=== PATIENT | female | born 1950 ===

== ENCOUNTER 2016-11-12 06:54 | Inpatient (IN) | payer MEDICARE ==
[2016-11-12] MEDS ORDERED: Ropivacaine 0.5% 30ML IV ONE (07:19)
[2016-11-12] MEDS ORDERED: Bupivacaine 0.5% Inj(30mL) ONE (07:20)
[2016-11-12] MEDS ORDERED: Propofol 10 mg/ml Inj (20 ML) ONE (07:23)
[2016-11-12] MEDS ORDERED: Midazolam 2 MG/2 ML VIAL ONE (07:23)
[2016-11-12] MEDS ORDERED: Rocuronium 10 mg/ml (5 ml) ONE (07:23)
[2016-11-12] MEDS ORDERED: Thrombin Topical 5,000 IU Spray Kit ONE (07:24)
[2016-11-12] MEDS ORDERED: Bacitracin Ointment 30 GM TUBE ONE (07:24)
[2016-11-12] MEDS ORDERED: Absorbable Gelatin Sponge Size 100 ONE (07:24)
[2016-11-12 07:34] VITALS: BMI 34.9
--- NOTE | 2016-11-12 07:55 | CP.PCM.HP ---
History of Present Illness - History of Present Illness History of Present Illness: 66 y/o female with PMH HTN, OA, dyslipidemia presented via [facility] for scheduled right total knee replacement surgery by Dr. Tom. As per patient she has been experiencing right knee pain for approximately 18 years , progressive, failing conservative treatment with pain management and intra articular injections. Patient was seen by Dr Tom in his office and scheduled for TKR. She has medical clearance by her PMD for surgery. At present she denies any chest pain, SOB, palpitations, PND, orthopnea, urinary symptoms or changes in bowel movements. Allergies ; NKDA PMH ; OA, HTN, dyslipidemia Medications; Tramadol, Benicar, lipitor, ASA( last dose was 8 days ago ), atenolol Surgery ; Right shoulder surgery Family history ; None Social history ; lives with son in [place] [facility] [place], has 2 children, retired, , smokes 2 cigg/day for > 20 years , denies ETOH or drug abuse ROS; 14 point review of system negative except above Present on Admission - Present on Admission Any Indicators Present on Admission: No Review of Systems - Review of Systems All systems: reviewed and no additional remarkable complaints except Past Patient History - Infectious Disease Hx of Infectious Diseases: None - Tetanus Immunizations Tetanus Immunization: Unknown - Past Medical History & Family History Past Medical History?: Yes Past Family History: Reviewed and not pertinent - Past Social History Smoking Status: Light Smoker < 10 Cigarettes Daily (2 cigg /day) Chewing Tobacco Use: No Cigar Use: No Drugs: Denies Home Situation {Lives}: With Family (son) Domestic Violence: Negative - CARDIAC Hx Cardiac Disorders: No Hx Congestive Heart Failure: No Hx Hypercholesterolemia: Yes Hx Hypertension: Yes - PULMONARY Hx Chronic Obstructive Pulmonary Disease (COPD): No - NEUROLOGICAL HX Cerebrovascular Accident: No - HEENT Hx HEENT Problems: No - RENAL Hx Renal Failure: No - ENDOCRINE/METABOLIC Hx Diabetes Mellitus Type 1: No Hx Diabetes Mellitus Type 2: No Hx Hypothyroidism: No - HEMATOLOGICAL/ONCOLOGICAL Hx Blood Disorders: No - INTEGUMENTARY Hx Dermatological Problems: No - MUSCULOSKELETAL/RHEUMATOLOGICAL Hx Arthritis: Yes Hx Rheumatoid Arthritis: No - GASTROINTESTINAL Hx Gastrointestinal Disorders: No - GENITOURINARY/GYNECOLOGICAL Hx Genitourinary Disorders: No - PSYCHIATRIC Hx Psychophysiologic Disorder: No - SURGICAL HISTORY Hx Surgeries: Yes Hx Orthopedic Surgery: Yes (right shoulder ) - ANESTHESIA Hx Anesthesia: Yes Hx Anesthesia Reactions: No Hx Malignant Hyperthermia: No Meds Allergies/Adverse Reactions: Allergies Allergy/AdvReac Type Severity Reaction Status Date / Time No Known Allergies Allergy Verified 10/29/14 11:08 Physical Exam - Constitutional Appears: Well, Non-toxic, No Acute Distress - Head Exam Head Exam: ATRAUMATIC, NORMAL INSPECTION, NORMOCEPHALIC - Eye Exam Eye Exam: EOMI, Normal appearance, PERRL Pupil Exam: NORMAL ACCOMODATION - ENT Exam ENT Exam: Mucous Membranes Moist, Normal Exam - Neck Exam Neck exam: Positive for: Full Rom, Normal Inspection - Respiratory Exam Respiratory Exam: Clear to Auscultation Bilateral, NORMAL BREATHING PATTERN. absent: Rales, Rhonchi, Wheezes - Cardiovascular Exam Cardiovascular Exam: REGULAR RHYTHM, RRR, +S1, +S2. absent: JVD - GI/Abdominal Exam GI & Abdominal Exam: Normal Bowel Sounds, Soft. absent: Distended, Guarding, Rebound, Tenderness - Rectal Exam Rectal Exam: Deferred - Extremities Exam Extremities exam: Positive for: normal capillary refill, normal inspection, pedal pulses present. Negative for: calf tenderness, pedal edema - Back Exam Back exam: NORMAL INSPECTION - Neurological Exam Neurological exam: Alert, CN II-XII Intact, Oriented x3, Reflexes Normal - Psychiatric Exam Psychiatric exam: Normal Affect, Normal Mood - Skin Skin Exam: Dry, Intact, Normal Color, Warm Results - Vital Signs Recent Vital Signs: Last Vital Signs Temp 97.6 F 11/12/16 07:33 Pulse 74 11/12/16 07:33 Resp 20 11/12/16 07:33 BP 157/74 H 11/12/16 07:33 Pulse Ox 97 11/12/16 07:33 - Labs Labs: Laboratory Results - last 24 hr 11/12/16 07:30 POC Glucose (mg/dL) 111 H Assessment & Plan (1) Osteoarthritis of right knee Status: Acute Priority: High Comment: Admit via SDS for right Total Knee replacement by Dr Tom. Medical Clearance in the chart. NPO for now. Post op follow up for pain management , PT (2) Hyperlipidemia Status: Chronic Comment: Resume home meds (3) HTN (hypertension) Status: Chronic Priority: Medium Comment: Resume home meds (4) DVT prophylaxis Status: Acute Comment: Will start post op as per ortho recomendations
[2016-11-12] MEDS ORDERED: Lactated Ringer's 1,000 ML IV ONE ×2 (08:09)
[2016-11-12] MEDS ORDERED: ePHEDrine 50 mg/ml Inj ONE (08:15)
[2016-11-12] MEDS ORDERED: Labetalol 5mg/ml (4ml) ONE (08:58)
[2016-11-12] MEDS ORDERED: ceFAZolin 2 GM in Sodium Chloride 0.9% 100 ML IVPB SCH (09:00)
[2016-11-12] MEDS ORDERED: Neostigmine Methylsulfate 3mg/3ml Syringe IV ONE (10:20)
--- NOTE | 2016-11-12 11:03 | PCM.SURG1 ---
Surgeon's Initial Post Op Note - Surgeon's Notes Surgeon: Negro Damage Appraiser: MELISSA Santoro/ 2nd assist Ronan Whitfield Type of Anesthesia: General Endo, Spinal Anesthesia Administered By: Dr Alanis Pre-Operative Diagnosis: Primary Osteoartyhritis Right knee. tricompartmental synovits Operative Findings: as above. posterior capsular contracture. lateral patella contracture Post-Operative Diagnosis: as above Operation Performed: R TKR. posterior capsular release. lateral patella retinacular release. anteriuor and posterior synovectomy. computer navigation Specimen/Specimens Removed: synovium. bone. cartilage Estimated Blood Loss: EBL {In ML}: 50 Blood Products Given: N/A Drains Used: No Drains Post-Op Condition: Good Date of Surgery/Procedure: 11/12/16 Time of Surgery/Procedure: 08:55 (time in room/anaesthesia induction time/time in room 8:09/finish time10:46)
[2016-11-12] MEDS ORDERED: HYDROmorphone 0.5 mg/0.5 ml ISec IVP PRN (11:12)
--- NOTE | 2016-11-12 11:12 | PCM.ANESB3 ---
Femoral Nerve Block - Femoral Nerve Block Date of Procedure: 11/12/16 Anesthesiologist: Haile Pre-Procedure Diagnosis: Right knee osteoarthritis Post-Procedure Diagnosis: Same Procedure Performed: Femoral Nerve Block Right - Procedure Femoral Nerve Block: The procedure was explained to the patient that it is for the post-operative pain management. Consent was obtained after a thorough discussion with the patient regarding the benefits and possible complications of local anesthetic block of the femoral nerve at the inguinal crease area. The patient was brought to the operating room and standard monitors were applied. Time-out was held with the circulating nurse to confirm the correct surgery and the appropriate block. After surgery was completed, patient was placed in supine position with fully extended lower extremities and the ____right____ groin exposed. The femoral artery was then carefully palpated. The ultrasound transducer was then applied to this area in the transverse plane and the femoral nerve was visualized lateral to the femoral artery and underneath the fascia iliaca. After thorough identification, the inguinal crease area was prepped with Betadine solution three times and 1 % Lidocaine was injected subcutaneously for topical anesthesia. At this point, a #22 gauge Stimuplex 2-inch needle was inserted immediately lateral to the femoral artery pulse at the inguinal crease and advanced perpendicularly. The needle was inserted to the ultrasound transducer in-plane towards the femoral nerve in a [id number] direction. Needle advancement was performed carefully under direct ultrasound visualization. Nerve stimulator was used and twitch of the quadriceps muscle was obtained at current of __0.4___ MA. After negative aspiration, __20___cc of __.5___% ____Ropivacaine ____was injected. Under ultrasound guidance the local anesthetics were observed spreading below fascia iliaca and around the femoral nerve. The needle was removed intact and sterile dressing was applied. The patient had stable vital signs, was conscious and in no apparent distress. The patient tolerated the femoral nerve block well with stable vital signs and was transferred to PACU.
--- NOTE | 2016-11-12 12:16 | RAD ---
Indication: Status post right TKR Comparison: None available Two views, right knee radiographs Findings: The patient is status post right knee total arthroplasty. Alignment appears satisfactory. Soft tissue swelling, subcutaneous emphysema, and surgical mj compatible with recent postoperative history Impression: Status post right arthroplasty as above.
[2016-11-12] MEDS: Pantoprazole 40 mg EC Tab PO SCH (17:16)
[2016-11-12] MEDS: Omega-3-Acid Ethyl Esters 1 GM Cap PO SCH (17:25)
[2016-11-12] MEDS: ceFAZolin 1 GM in Sodium Chloride 0.9% 100 ML IVPB SCH (18:11)
[2016-11-13] MEDS: ceFAZolin 1 GM in Sodium Chloride 0.9% 100 ML IVPB SCH (00:34)
[2016-11-13 07:28] LABS: BASO # 0.1 K/uL (0.0-0.2); BASO % 0.8 % (0.0-2.0); EOS # 0.1 K/uL (0.0-0.7); HEMATOCRIT 33.7 % (34.0-47.0); LYMPH # 2.3 K/uL (1.0-4.3); LYMPH % 21.7 % (20.0-40.0); MEAN CELL VOLUME 98.9 fl (81.0-99.0); MEAN CORPUSCULAR HEMOGLOBIN 33.3 pg (27.0-31.0); MEAN CORPUSCULAR HGB CONC 33.6 g/dL (33.0-37.0); MEAN PLATELET VOLUME 8.5 fl (7.2-11.7); MONO # 1.3 K/uL (0.0-0.8); MONO % 11.9 % (0.0-10.0); NEUT # 6.9 K/uL (1.8-7.0); NEUT % 64.6 % (50.0-75.0); RED CELL DISTRIBUTION WIDTH 14.9 % (11.5-14.5); WHITE BLOOD COUNT 10.6 K/uL (4.8-10.8)
[2016-11-13 07:30] LABS: BLOOD UREA NITROGEN 8 mg/dl (7-17); CALCIUM 8.9 mg/dL (8.4-10.2); CARBON DIOXIDE 30 mmol/L (22-30); CHLORIDE 105 mmol/L (98-107); GFR AFRICAN-AMERICAN > 60; GLUCOSE,RANDOM 109 mg/dL (65-105); POTASSIUM 3.8 MMOL/L (3.6-5.0); SODIUM 145 mmol/l (132-148)
[2016-11-13 07:46] VITALS: RESP 20
[2016-11-13] MEDS: Omega-3-Acid Ethyl Esters 1 GM Cap PO SCH ×2 (08:08→16:57)
[2016-11-13] MEDS: Enoxaparin 40 mg Syringe SC SCH (08:08)
[2016-11-13] MEDS: Pantoprazole 40 mg EC Tab PO SCH (08:08)
[2016-11-13] MEDS: Oxycodone/Acetaminophen 5/325 mg Tab PO PRN (14:21)
--- NOTE | 2016-11-13 14:30 | CP.PCM.PN ---
Subjective - Date & Time of Evaluation Date of Evaluation: 11/13/16 Time of Evaluation: 10:30 - Subjective Subjective: Patient seen and examined bedside. Denies any pain to right knee.Hemodynamically stable, Tmax 100.3. No acute issues overnight. participating [facility] PT. Objective - Vital Signs/Intake and Output Vital Signs (last 24 hours): Temp Pulse Resp BP Pulse Ox 99.3 F 102 H 20 135/82 95 11/13/16 13:51 11/13/16 13:51 11/13/16 13:51 11/13/16 13:51 11/13/16 13:51 - Medications Medications: Current Medications Acetaminophen (Tylenol 325mg Tab) 650 mg PO Q6 PRN PRN Reason: Fever >100.4 F Atenolol (Tenormin) 50 mg PO DAILY [facility] Last Admin: 11/13/16 08:07 Dose: 50 mg Atorvastatin Calcium (Lipitor) 80 mg PO DAILY [facility] Last Admin: 11/13/16 08:08 Dose: 80 mg Docusate Sodium (Colace) 100 mg PO BID [facility] Last Admin: 11/13/16 08:07 Dose: 100 mg Enoxaparin Sodium (Lovenox) 40 mg SC DAILY [facility] PRN Reason: Protocol Last Admin: 11/13/16 08:08 Dose: 40 mg Losartan Potassium (Cozaar) 50 mg PO DAILY [facility] Last Admin: 11/13/16 08:08 Dose: 50 mg Morphine Sulfate (Morphine) 2 mg IVP Q4 PRN PRN Reason: Pain, severe (8-10) Last Admin: 11/13/16 11:15 Dose: 2 mg [id number] Ethyl Esters (Lovaza) 2 gm PO BID [facility] Last Admin: 11/13/16 08:08 Dose: 2 gm Ondansetron HCl (Zofran Inj) 4 mg IVP Q6 PRN PRN Reason: Nausea/Vomiting Oxycodone/Acetaminophen (Percocet 5/325 Mg Tab) 2 tab PO Q4 PRN PRN Reason: Pain, moderate (4-7) Stop: 11/16/16 09:33 Last Admin: 11/13/16 14:21 Dose: 2 tab Pantoprazole Sodium (Protonix Ec Tab) 40 mg PO DAILY [facility] Last Admin: 11/13/16 08:08 Dose: 40 mg - Labs Labs: 11/13/16 05:45 04/25/17 05:45 PT 10.5 SECONDS (9.6-11.2) 11/13/16 05:45 INR 1.01 (0.92-1.08) 11/13/16 05:45 APTT 26.0 SECONDS (23.3-32.5) 11/13/16 05:45 - Constitutional Appears: Non-toxic, No Acute Distress, Other (obese) - Head Exam Head Exam: ATRAUMATIC, NORMAL INSPECTION, NORMOCEPHALIC - Eye Exam Eye Exam: EOMI, Normal appearance, PERRL Pupil Exam: NORMAL ACCOMODATION - ENT Exam ENT Exam: Mucous Membranes Moist, Normal Exam - Neck Exam Neck Exam: Full ROM, Normal Inspection - Respiratory Exam Respiratory Exam: Clear to Ausculation Bilateral, NORMAL BREATHING PATTERN. absent: Rhonchi, Wheezes, Respiratory Distress - Cardiovascular Exam Cardiovascular Exam: REGULAR RHYTHM, RRR, +S1, +S2. absent: JVD - GI/Abdominal Exam GI & Abdominal Exam: Soft, Normal Bowel Sounds. absent: Guarding, Tenderness, Rebound - Rectal Exam Rectal Exam: Deferred - Extremities Exam Extremities Exam: absent: Calf Tenderness Additional comments: right knee konstantin bandage in place - Back Exam Back Exam: NORMAL INSPECTION - Neurological Exam Neurological Exam: Alert, Awake, CN II-XII Intact, Oriented x3 - Psychiatric Exam Psychiatric exam: Normal Affect - Skin Skin Exam: Dry, Warm Additional comments: right buttock dry clustered hyperkeratotic lesions puncture size ,covered with dry brown scabs, no drainage, no odor. Assessment and Plan (1) HTN (hypertension) Status: Chronic (2) Hyperlipidemia Status: Chronic (3) DVT prophylaxis Status: Acute (4) Osteoarthritis of right knee Status: Acute - Assessment and Plan (Free Text) Assessment: 66 y/o female with PMH HTN, OA, dyslipidemia presented via [facility] for scheduled right total knee replacement surgery by Dr. Tom. As per patient she has been experiencing right knee pain for approximately 18 years , progressive, failing conservative treatment with pain management and intra articular injections. Patient was seen by Dr Tom in his office and scheduled for TKR. Today s/o right TKR day 1 and doing well (1) Osteoarthritis of right knee s/p Right TKR #1 hemodynamically stable d/c SCREEN CLEANER pump and start Morphine and percoset PRN as per pain managemnet PT consult appreciated Continue DVT prophtylaxis with SCD and Lovenox Receivecd Ancef 3 doses prophylactically] Will d/c to [facility] in AM if stable (2) Hyperlipidemia Chronic continue lipitor (3) HTN (hypertension) chronic, stable resumed home meds (4) DVT prophylaxis SCD and lovenox
[2016-11-14] MEDS: Oxycodone/Acetaminophen 5/325 mg Tab PO PRN ×2 (03:19→12:10)
[2016-11-14 06:49] LABS: HEMATOCRIT 30.7 % (34.0-47.0); MEAN CORPUSCULAR HEMOGLOBIN 32.5 pg (27.0-31.0); MEAN CORPUSCULAR HGB CONC 32.5 g/dL (33.0-37.0); RED CELL DISTRIBUTION WIDTH 14.8 % (11.5-14.5); WHITE BLOOD COUNT 11.6 K/uL (4.8-10.8)
[2016-11-14 08:00] VITALS: O2SAT 93
--- NOTE | 2016-11-14 08:07 | OP ---
PROCEDURE DATE: 11/12/2016 PREOPERATIVE DIAGNOSIS: Severe tricompartmental osteoarthritis of the right knee. POSTOPERATIVE DIAGNOSES: 1. Severe tricompartmental osteoarthritis of the right knee. 2. Tricompartmental synovitis. PROCEDURES: 1. Right total knee replacement arthroplasty. 2. Anterior and posterior synovectomy 3. Posterior capsular release. 4. Lateral patellar retinacular release. 5. Computer navigation. SURGEON: Daniel Tom MD TELECOMMUNICATIONS LINE MECHANIC: Renetta Angulo, Certified Registered Nursing Commercial Accountant. SECOND FRICTION PAINT MACHINE TENDER: Ronan Whitfield. ANESTHESIA: Spinal and general anesthesia; Dr. Rizwan Be. COMPLICATIONS: No complications. DRAINS: No drains. BLOOD LOSS: Approximately 55 mL. OPERATIVE INDICATION: The patient is a woman who presents with severe pain and restricted range of m otion of the knee. The patient has failed conservative management consisting of anti-inflammatory me dication by her family doctor, activity modification and intraarticular injection. Pros, cons, risks and benefits of total knee replacement arthroplasty are discussed through the culturally competent t ranslator. Possibility of mechanical failure, infection, thromboembolic disease, secondary or tertia ry surgery is discussed. The patient can no longer stand the discomfort and wishes the surgery to be accomplished. This is accomplished again in the presence of the culturally competent rn spine. P ossibility of mechanical failure, infection, thromboembolic disease, secondary or tertiary surgery is discussed. OPERATIVE PROCEDURE: After having obtained informed consent, after having identified side, site and procedure and a critical pause/timeout, after the satisfactory induction of the anesthetic, the patie nt correctly identified, in the supine position with all bony prominences well padded, the right lowe r extremity is prepped and free draped in the usual fashion for lower extremity surgery. The tourniq uet had been applied, but is not yet inflated. After exsanguinating the limb using a 6-inch Esmarch bandage, the tourniquet which had been applied is inflated to 350 mmHg. Straight midline approach wa s made to the knee. The skin incision is carried down through the skin and subcutaneous tissue. Med ial arthrotomy is accomplished. Dissection is carried around to the direct head of the semimembranos is tendon. A portion of the patellar ligament is elevated. Medial and lateral meniscectomies are ac complished. Anterior and posterior cruciate ligaments are excised. The initial osteotomy of the art hroplasty is accomplished on the tibial side. The tibia is dislocated anteriorly. The accelerometer is placed and affixed to the anterior aspect of the tibia. Sensor is placed. Offset is calibrated. Medial malleolus was identified and lateral malleolus is identified. The tibial cut is neutral varu s valgus and neutral posterior slope because of the 5 degrees built into the polyethylene posteriorly . This having been accomplished, there was found to be a severe defect medially because of the varus nature. The cut is set at 1 mm below the deformity. Tibial osteotomy is accomplished. At this poi nt in time, a portion of the iliotibial band and the lateral aspect of the tibia is released. Latera l patellar retinacular release is accomplished. Anterior and posterior synovectomy is accomplished. Attention is turned to the femur. The distal cut is set to 0 degrees varus valgus on the mechanical axis and 0.5 degrees of flexion. This having been accomplished, the hip center is found. The dista l cut is set to 9 mm to match the femoral component and the femoral osteotomy is accomplished, again after registration by the accelerometer of the distal cut. Anterior and posterior sizing is to #3 fe moral component with a #2 tibial tray. The tibia had been sized and prepared according to rotation a fter the proximal tibia had been prepared. This having been accomplished, the wound is thoroughly ir rigated. Attention is turned to the femur. Anterior and posterior osteotomies were accomplished. C hamfer cuts were accomplished as well. Posterior capsular is released, lateral patella retinaculum i s release. There is found to be evidence of a posterior capsular contracture. The posterior capsule is carefully released, a lateral patellar retinacular release is accomplished, and anterior and post erior synovectomy is accomplished. The wound is thoroughly irrigated. At this point in time, triali ng is accomplished using the #3 cemented femoral component, #2 cemented tibial tray, and 15 mm polyet hylene. The flexion/extension balance is found to be excellent. Attention is turned to the patella. The patella girth measures 28 mm. The freehand patella osteotomy is accomplished for a [address] cut. Patella balance is found to be excellent in flexion and extension. The wound was thoroughly irrigated. Components are removed. The femur, tibia, and patella are prepared using the waterpik. The #3 cemented femoral component is applied, the #2 cemented tibial tray, 35 mm polyethylene. Ante rior and posterior synovectomy having been accomplished, the posterior capsule release having been ac complished, lateral patellar retinacular release having been accomplished, the patella ligament is re paired and reinforced using a [place] internal fixation suture. Closure is in layers with #2 Quill, i nterrupted #1 Vicryl, followed by 0 Quill, Vicryl and mj to skin. No drain is employed. Daniel Campos compression dressing and knee immobilizer are applied. OPERATIVE PROCEDURES: 1. Right total knee replacement. 2. Repair and reinforcement, patella ligament. 3. Anterior and posterior synovectomy. 4. Posterior capsule release, right knee. 5. Lateral patellar retinacular release. POSTOPERATIVE DIAGNOSES: 1. Tricompartmental osteoarthritis. 2. Tricompartmental synovitis. 3. Compromised patella ligament insertion into the tibia. 4. Posterior capsular contracture. 5. Lateral patellar retinacular contracture. The certified nursing first coat operator is essential to the management of this operation and her presen ce is important for exposure, the bone cuts, and implantation and cementation of the components. Daniel Tom MD cc: [id number] TT: 11/13/2016 11:40:17 ne
[2016-11-14] MEDS: Omega-3-Acid Ethyl Esters 1 GM Cap PO SCH (08:50)
[2016-11-14] MEDS: Pantoprazole 40 mg EC Tab PO SCH (08:51)
[2016-11-14] MEDS: Enoxaparin 40 mg Syringe SC SCH (08:52)
--- NOTE | 2016-11-14 12:03 | CP.PCM.DIS ---
Provider - Provider Date of Admission: 11/12/16 08:01 Attending physician: Gladis De Paz MD Consults: Ortho : Dr Tom 11/12/16 11:04 Case Management Referral Routine Comment: Physician Instructions: Reason For Exam: Reason for Referral: Discharge Planning 11/12/16 11:05 Case Management Referral Routine Comment: Respiratory therapy education, Anesthesiology Eval Physician Instructions: Home Health Care Assessment, Die Hardener Education Reason For Exam: s/p R TKR Reason for Referral: Discharge Planning 11/12/16 15:23 Wound Care [Nursing Referral for Wound Care] Routine Comment: Physician Instructions: Reason For Exam: sacral wound Time Spent in preparation of Discharge (in minutes): 25 Diagnosis - Discharge Diagnosis (1) Osteoarthritis of right knee Status: Chronic Priority: High (2) S/P TKR (total knee replacement) Status: Acute (3) HTN (hypertension) Status: Chronic Priority: Medium (4) Hyperlipidemia Status: Chronic (5) DVT prophylaxis Status: Acute Hospital Course - Lab Results Lab Results: Most Recent Lab Values WBC 11.6 K/uL (4.8-10.8) H 11/14/16 05:35 RBC 3.07 Mil/uL (3.80-5.20) L 11/14/16 05:35 Hgb 10.0 g/dL (12.0-16.0) L 11/14/16 05:35 Hct 30.7 % (34.0-47.0) L 11/14/16 05:35 MCV 100.0 fl (81.0-99.0) H 11/14/16 05:35 MCH 32.5 pg (27.0-31.0) H 11/14/16 05:35 MCHC 32.5 g/dL (33.0-37.0) L 11/14/16 05:35 RDW 14.8 % (11.5-14.5) H 11/14/16 05:35 Plt Count 342 K/uL (130-400) 11/14/16 05:35 MPV 8.5 fl (7.2-11.7) 11/13/16 05:45 Neut % (Auto) 64.6 % (50.0-75.0) 11/13/16 05:45 Lymph % (Auto) 21.7 % (20.0-40.0) 11/13/16 05:45 [place] % (Auto) 11.9 % (0.0-10.0) H 11/13/16 05:45 Eos % (Auto) 1.0 % (0.0-4.0) 11/13/16 05:45 Baso % (Auto) 0.8 % (0.0-2.0) 11/13/16 05:45 Neut # 6.9 K/uL (1.8-7.0) 11/13/16 05:45 Lymph # 2.3 K/uL (1.0-4.3) 11/13/16 05:45 [place] # 1.3 K/uL (0.0-0.8) H 11/13/16 05:45 Eos # 0.1 K/uL (0.0-0.7) 11/13/16 05:45 Baso # 0.1 K/uL (0.0-0.2) 11/13/16 05:45 PT 10.5 SECONDS (9.6-11.2) 11/13/16 05:45 INR 1.01 (0.92-1.08) 11/13/16 05:45 APTT 26.0 SECONDS (23.3-32.5) 11/13/16 05:45 Sodium 145 mmol/l (132-148) 11/13/16 05:45 Potassium 3.8 MMOL/L (3.6-5.0) 11/13/16 05:45 Chloride 105 mmol/L (98-107) 11/13/16 05:45 Carbon Dioxide 30 mmol/L (22-30) 11/13/16 05:45 Anion Gap 13 (10-20) 11/13/16 05:45 BUN 8 mg/dl (7-17) 11/13/16 05:45 Creatinine 0.8 mg/dL (0.7-1.2) 11/13/16 05:45 Est GFR ( Amer) > 60 11/13/16 05:45 Est GFR (Non-Af Amer) > 60 11/13/16 05:45 POC Glucose (mg/dL) 108 mg/dL (65-110) 11/12/16 11:32 Random Glucose 109 mg/dL (65-105) H 11/13/16 05:45 Calcium 8.9 mg/dL (8.4-10.2) 11/13/16 05:45 Blood Type O POSITIVE 11/12/16 07:57 Antibody Screen Negative 11/12/16 07:57 BBK History Checked Patient has bt 11/12/16 07:57 - Hospital Course Hospital Course: 66 y/o female with PMH HTN, OA, dyslipidemia presented via [facility] for scheduled right total knee replacement surgery by Dr. Tom. As per patient she has been experiencing right knee pain for approximately 18 years , pain worsening and failed conservative treatment with pain management and intra articular injections. Patient was seen by Dr Tom in his office and scheduled for Right TKR. Underwent Right TKR, did well post op , d/c to [facility]. (1) Primary Osteoarthritis of right knee s/p Right TKR TKR done by DR Tom hemodynamically stable Pain Mgt - was on [employer] pump - d/c and changed to Percocet- pain controlled PT/OT consulted Continue DVT prophylaxis with SCD and Lovenox Received Ancef 3 doses prophylactically] Will d/c to [facility] for further Rehab (2) Hyperlipidemia Chronic continue lipitor (3) HTN (hypertension) chronic, stable resumed home meds (4) DVT prophylaxis SCD and lovenox Discharge Exam - Head Exam Head Exam: ATRAUMATIC, NORMAL INSPECTION, NORMOCEPHALIC - Eye Exam Eye Exam: EOMI, Normal appearance Pupil Exam: NORMAL ACCOMODATION - ENT Exam ENT Exam: Mucous Membranes Moist, Normal External Ear Exam - Neck Exam Neck exam: Full Rom - Respiratory Exam Respiratory Exam: NORMAL BREATHING PATTERN. absent: Respiratory Distress - Cardiovascular Exam Cardiovascular Exam: REGULAR RHYTHM, +S1, +S2 - GI/Abdominal Exam GI & Abdominal Exam: Normal Bowel Sounds, Soft. absent: Tenderness - Extremities Exam Extremities exam: normal capillary refill, pedal pulses present Additional comments: no calf tenderness right knee dressing intact , clean - Back Exam Back exam: FULL ROM. absent: CVA tenderness (L), CVA tenderness (R) - Neurological Exam Neurological exam: Alert, CN II-XII Intact, Oriented x3, Reflexes Normal - Psychiatric Exam Psychiatric exam: Normal Affect, Normal Mood - Skin Skin Exam: Dry, Normal Color Discharge Plan - Follow Up Plan Condition: GOOD Disposition: TRANSF TO SNF Instructions: Knee Replacement (DC) Additional Instructions: ff up with Dr Tom in 1 wk Use immobilizer only during sleep cont CPM Referrals: Daniel Tom III, MD [Primary Care Provider] -
[2016-11-14 12:13] VITALS: BP 136/88; PULSE 91; TEMP 99
== END 2016-11-14 15:31 | DRG 470 ==
LOC: H.OPSURG 06:54 → H.MEDSURG1 08:01
PROVIDERS: ADMIT Hospitalist; ATTEND Hospitalist
PROC: 0SNC0ZZ Release Right Knee Joint, Open Approach (ICD-10-PCS; 2016-11-12)
PROC: 8E0YXBZ Computer Assisted Procedure of Lower Extremity (ICD-10-PCS; 2016-11-12)
PROC: 3E0T3BZ Introduction of Anesthetic Agent into Peripheral Nerves and Plexi, Percutaneous Approach (ICD-10-PCS; 2016-11-12)
PROC: 0SRC0J9 Replacement of Right Knee Joint with Synthetic Substitute, Cemented, Open Approach (ICD-10-PCS; principal; 2016-11-12 07:45)
PROC: 0SBC0ZZ Excision of Right Knee Joint, Open Approach (ICD-10-PCS; 2016-11-12 07:45)
DX: M17.11 Unilateral primary osteoarthritis, right knee (principal); I10 Essential (primary) hypertension; E78.5 Hyperlipidemia, unspecified; M65.9 Synovitis and tenosynovitis, unspecified; M24.561 Contracture, right knee

== ENCOUNTER 2017-10-21 06:24 | Inpatient (IN) | payer MEDICARE ==
[2017-10-18 10:21] VITALS: BMI 31.6
--- NOTE | 2017-10-21 07:27 | CP.PCM.HP ---
History of Present Illness - History of Present Illness History of Present Illness: PMD: Dr James Orthopedic: Dr Tom Chief complaint: Painful left shoulder HPI: This is a 67 years old female with hx of HTN, HLD and Osteoarthritis who comes for an elective Left total shoulder replacement. She has been having pains at this shoulder for over 10years was treated with intra articular injections and analgesic tablets. But because of persisting pains indicating that she has failed conservative treatment she was scheduled for this surgery. She refers no SOB, Chest Pain, palpitation, headache, nausea, vomits, diarrhea nor Dysuria. She was recently treated for infected right knee which has improved. She was cleared By Dr Yaron CROFT for the surgery. PMH: HTN; HLD; Osteoarthritis PSH: Right Shoulder replacement; Right Total Knee replacement SH: No illegal drug use; No Alcohol; Smokes 2 cigarets/day for 21 years; Live with family FH: State: No known family hx Allergies: NKDA Medication: Reviewed Present on Admission - Present on Admission Any Indicators Present on Admission: No History of DVT/PE: No History of Uncontrolled Diabetes: No Urinary Catheter: No Decubitus Ulcer Present: No Review of Systems - Constitutional Constitutional: absent: Anorexia, Chills, Fever, Headache - EENT Eyes: Requires Corrective Lenses. absent: Diplopia, Floaters, Sees Flashes Ears: absent: Decreased Hearing, Ear Discharge, Ear Pain, Tinnitus Nose/Mouth/Throat: absent: Epistaxis, Nasal Congestion, Sinus Pain, Sinus Pressure Additional comments: Partial dentures above and below - Cardiovascular Cardiovascular: absent: Chest Pain, Dyspnea, Edema - Respiratory Respiratory: absent: Cough, Dyspnea, Wheezing, Stridor - Gastrointestinal Gastrointestinal: absent: Abdominal Pain, Constipation, Diarrhea, Nausea, Vomiting - Genitourinary Genitourinary: absent: Dysuria, Flank Pain, Hematuria, Urinary Frequency - Musculoskeletal Musculoskeletal: Arthralgias. absent: Myalgias, Neck Pain, Numbness Additional comments: Right knee with scar of healing wound - Integumentary Integumentary: absent: Pruritus, Rash, Skin Ulcer, Sores, Striae, Swelling - Neurological Neurological: absent: Confusion, Focal Weakness, Headaches, Weakness - Psychiatric Psychiatric: absent: Anxiety, Depression, Panic Attacks - Endocrine Endocrine: absent: Palpitations, Polydipsia, Polyphagia, Polyuria - Hematologic/Lymphatic Hematologic: absent: Easy Bleeding, Easy Bruising Past Patient History - Infectious Disease Hx of Infectious Diseases: None - Tetanus Immunizations Tetanus Immunization: Unknown - Past Medical History & Family History Past Medical History?: Yes - Past Social History Smoking Status: Light Smoker < 10 Cigarettes Daily Chewing Tobacco Use: No Cigar Use: No Alcohol: None Drugs: Denies Home Situation {Lives}: With Family - CARDIAC Hx Cardiac Disorders: Yes Hx Hypertension: Yes - PULMONARY Hx Respiratory Disorders: No - NEUROLOGICAL Hx Neurological Disorder: No - HEENT Hx HEENT Problems: No - RENAL Other/Comment: kidney level function was low - ENDOCRINE/METABOLIC Hx Endocrine Disorders: No - HEMATOLOGICAL/ONCOLOGICAL Hx Blood Disorders: No - INTEGUMENTARY Hx Dermatological Problems: No - MUSCULOSKELETAL/RHEUMATOLOGICAL Hx Musculoskeletal Disorders: Yes Hx Arthritis: Yes (right knee) - GASTROINTESTINAL Hx Gastrointestinal Disorders: No - GENITOURINARY/GYNECOLOGICAL Hx Genitourinary Disorders: No - PSYCHIATRIC Hx Psychophysiologic Disorder: No - SURGICAL HISTORY Hx Surgeries: Yes Hx Orthopedic Surgery: Yes (total right knee,) Other/Comment: fx right shoulder - ANESTHESIA Hx Anesthesia: Yes Hx Anesthesia Reactions: No Hx Malignant Hyperthermia: No Has any member of the family had a problem w/ anesthesia?: No Meds Allergies/Adverse Reactions: Allergies Allergy/AdvReac Type Severity Reaction Status Date / Time No Known Allergies Allergy Verified 10/21/17 07:37 Physical Exam - Constitutional Appears: No Acute Distress - Head Exam Head Exam: ATRAUMATIC, NORMAL INSPECTION, NORMOCEPHALIC - Eye Exam Eye Exam: EOMI, Normal appearance Pupil Exam: NORMAL ACCOMODATION, PERRL - ENT Exam ENT Exam: Mucous Membranes Moist, Normal Exam, Normal External Ear Exam, Normal Oropharynx - Neck Exam Neck exam: Positive for: Full Rom, Normal Inspection. Negative for: Lymphadenopathy, Tenderness - Respiratory Exam Respiratory Exam: Clear to Auscultation Bilateral. absent: Rales, Rhonchi, Wheezes - Cardiovascular Exam Cardiovascular Exam: REGULAR RHYTHM, RRR, +S1, +S2. absent: Gallop - GI/Abdominal Exam GI & Abdominal Exam: Normal Bowel Sounds, Soft. absent: Mass, Organomegaly, Tenderness - Rectal Exam Rectal Exam: Deferred - Extremities Exam Extremities exam: Positive for: full ROM, normal inspection. Negative for: calf tenderness, joint swelling, pedal edema - Back Exam Back exam: NORMAL INSPECTION. absent: CVA tenderness (L), CVA tenderness (R) - Neurological Exam Neurological exam: Alert, CN II-XII Intact, Oriented x3, Reflexes Normal - Psychiatric Exam Psychiatric exam: Normal Affect, Normal Mood - Skin Skin Exam: Dry, Intact, Normal Color, Warm Results - Vital Signs Recent Vital Signs: Last Vital Signs Temp 98.5 F 10/21/17 07:19 Pulse 58 L 10/21/17 07:19 Resp 18 10/21/17 07:19 BP 132/56 L 10/21/17 07:19 Pulse Ox 98 10/21/17 07:19 Assessment & Plan - Assessment and Plan (Free Text) Assessment: #. Osteoarthritis #. HTN #. HLD Plan: 67 years old female with hx of Osteoarthritis, comes for an elective Left total shoulder replacement. She has failed conservative treatment and is scheduled for this surgery. She was recently treated for infected right knee which has improved. She was cleared By Dr Yaron CROFT for the surgery. The patient was cleared by her PMD Dr James for the Surgery #. Osteoarthritis for Elective Left total Shoulder replacement - Consult Dr Tom - orthopedic management -Post OP pain management - Physical Therapy post surgery - Occupational Therapy post surgery #. HTN - Continue Tenormin - follow Vital signs #. HLD - lipitor #. DVT prophylaxis post surgery #. Code Status: Full I have reviewed the laboratory, radiological and medical records of this patie Robert Daniel MD - Date & Time Date: 10/21/17 Time: 07:27
[2017-10-21] MEDS ORDERED: Ropivacaine 0.5% 30ML IV ONE (07:31)
--- NOTE | 2017-10-21 07:32 | CP.PCM.CON ---
History of Present Illness - History of Present Illness History of Present Illness: Orthopedic consultation Dr. Tom 67F RHD with left shoulder pain failed conservative mgmt and elected for total shoulder replacement. Prior right total shoulder Medical clearance on chart. Patient had been taking minocycline from Dr. Larson for right knee infection after surgery, but no longer taking it for many months. Review of Systems - Review of Systems All systems: reviewed and no additional remarkable complaints except - Musculoskeletal Musculoskeletal: As Per HPI Past Patient History - Infectious Disease Hx of Infectious Diseases: None - Tetanus Immunizations Tetanus Immunization: Unknown - Past Medical History & Family History Past Medical History?: Yes Past Family History: Reviewed and not pertinent - Past Social History Smoking Status: Light Smoker < 10 Cigarettes Daily - CARDIAC Hx Cardiac Disorders: Yes Hx Hypercholesterolemia: Yes Hx Hypertension: Yes - PULMONARY Hx Respiratory Disorders: No - NEUROLOGICAL Hx Neurological Disorder: No - HEENT Hx HEENT Problems: No - RENAL Other/Comment: kidney level function was low - ENDOCRINE/METABOLIC Hx Endocrine Disorders: No - HEMATOLOGICAL/ONCOLOGICAL Hx Blood Disorders: No - INTEGUMENTARY Hx Dermatological Problems: No - MUSCULOSKELETAL/RHEUMATOLOGICAL Hx Musculoskeletal Disorders: Yes Hx Arthritis: Yes (right knee) - GASTROINTESTINAL Hx Gastrointestinal Disorders: No - GENITOURINARY/GYNECOLOGICAL Hx Genitourinary Disorders: No - PSYCHIATRIC Hx Psychophysiologic Disorder: No - SURGICAL HISTORY Hx Surgeries: Yes Hx Orthopedic Surgery: Yes (total right knee, right total shoulder) Other/Comment: fx right shoulder - ANESTHESIA Hx Anesthesia: Yes Hx Anesthesia Reactions: No Hx Malignant Hyperthermia: No Has any member of the family had a problem w/ anesthesia?: No Meds Allergies/Adverse Reactions: Allergies Allergy/AdvReac Type Severity Reaction Status Date / Time No Known Allergies Allergy Verified 10/29/14 11:08 Physical Exam - Constitutional Appears: Well, No Acute Distress - Head Exam Head Exam: ATRAUMATIC - Respiratory Exam Respiratory Exam: NORMAL BREATHING PATTERN - Cardiovascular Exam Additional comments: +radial pulse - Expanded Upper Extremities Exam Left Neuro motor exam: finger 2-5 abduction intact, thumb abduction, thumb IP flexion intact, thumb opposition intact, wrist extension intact Neurosensory exam: median nerve intact, radial nerve intact, ulnar nerve intact Vascular exam: radial pulse - Neurological Exam Neurological exam: Alert, Oriented x3 - Psychiatric Exam Psychiatric exam: Normal Affect, Normal Mood - Skin Skin Exam: Dry, Intact, Normal Color, Warm Results - Vital Signs Recent Vital Signs: Last Vital Signs Temp 98.5 F 10/21/17 07:19 Pulse 58 L 10/21/17 07:19 Resp 18 10/21/17 07:19 BP 132/56 L 10/21/17 07:19 Pulse Ox 98 10/21/17 07:19 Assessment & Plan (1) Degenerative joint disease, shoulder, left Assessment and Plan: for total shoulder replacement NPO T&C for OR medical clearance on chart d/w Dr. Tom, agrees with above Status: Acute
[2017-10-21] MEDS ORDERED: Absorbable Gelatin Sponge Size 100 ONE (07:38)
[2017-10-21] MEDS ORDERED: Thrombin Topical 5,000 Int Units Spray Kit ONE (07:38)
[2017-10-21] MEDS ORDERED: Lidocaine 1% w Epi 1:100,000 Inj ONE (07:38)
[2017-10-21] MEDS ORDERED: Bacitracin Ointment 30 GM TUBE ONE (07:39)
[2017-10-21] MEDS ORDERED: Lidocaine Hydrochloride 1% 0 ML ONE (07:39)
[2017-10-21] MEDS ORDERED: EPINEPHrine 1 mg/ml (1:1000) Inj ONE (07:42)
[2017-10-21] MEDS ORDERED: Propofol 10 mg/ml Inj (20 ML) ONE ×2 (07:48→09:12)
[2017-10-21] MEDS ORDERED: Lidocaine 1% 5ml Abboject IV ONE (07:48)
[2017-10-21] MEDS ORDERED: Lidocaine 2% Jelly (5 ml) TOP ONE (07:48)
[2017-10-21] MEDS ORDERED: Rocuronium 10 mg/ml (5 ml) ONE ×2 (07:48→11:19)
[2017-10-21] MEDS ORDERED: Succinylcholine 200 mg/10 ml Inj IV ONE (07:50)
[2017-10-21] MEDS ORDERED: Lidocaine 2% MPF (5 ml) Inj ONE (07:55)
[2017-10-21] MEDS ORDERED: Lactated Ringer's 1,000 ML IV ONE ×3 (08:10→12:45)
[2017-10-21] MEDS ORDERED: ePHEDrine 50 mg/ml Inj ONE ×2 (08:36→09:14)
[2017-10-21] MEDS ORDERED: EPINEPHrine 1 mg/ml (1:1000) Inj IV ONE (09:25)
[2017-10-21] MEDS ORDERED: Phenylephrine 10 mg/ml Inj ONE (09:27)
[2017-10-21] MEDS ORDERED: Sevoflurane - Inhalation Anesthetic Liq (250 ml) ONE (12:07)
[2017-10-21] MEDS ORDERED: Thrombin Topical 5,000 Int Units Spray Kit TOP ONE (13:00)
[2017-10-21] MEDS ORDERED: Absorbable Gelatin Sponge Size 100 TP ONE (13:00)
[2017-10-21] MEDS ORDERED: Neostigmine 1:1000 (1 mg/ml) Inj ONE (13:28)
[2017-10-21] MEDS ORDERED: Oxycodone/Acetaminophen 5/325 mg Tab PO PRN ×2 (14:05→22:18)
[2017-10-21] MEDS ORDERED: Lactated Ringer's 1,000 ML IV SCH ×2 (14:15→14:30)
--- NOTE | 2017-10-21 14:16 | PCM.ANESB1 ---
Interscalene Block - Brachial Plexus Date of Procedure: 10/21/17 Anesthesiologist: Jake Pre-Procedure Diagnosis: severe osteoarthritis of left shoulder Procedure Performed: Interscalene Block of Brachial Plexus Left - Procedure Interscalene Block of Brachial Plexus: This procedure was explained to the patient that it is for post-operative pain management. Consent was obtained after a thorough discussion with the patient regarding the benefits and possible complications of local anesthetic block of the Brachial Plexus at the Interscalene area. The patient was brought to the Operating Room and standard monitors were applied. Time out was held with the circulating nurse to confirm the correct surgery and appropriate block. After applying Oxygen by nasal cannula and administering IV Sedation, the patient's head was gently rotated away from the __left____operative shoulder and the anterior scalene groove was carefully palpated. The ultrasound transducer was then applied to the skin in the transverse plane and the brachial plexus was visualized lateral to the carotid artery and in between the anterior and middle scalene muscles. After identification,the anterior lateral portion of the neck was prepped with Betadine solution three times and Lidocaine 1% was injected subcutaneously for topical analgesia. At this point, a # 22 gauge Stimuplex 2 inches insulated needle was inserted into the interscalene groove and directed in a caudal and midline direction. The needle was inserted lateral to the ultrasound transducer in-plane towards the brachial plexus in a [id number] direction. Needle advancement was performed carefully under direct ultrasound visualization. Nerve stimulator was used and twitched of the affected extremity including the hand brachialis muscles, biceps and the deltoid was obtained at a current of __0.4___MA. After repeated negative aspiration,__20___cc of__0.5___,___Ropivicaine were injected and this was followed with __10___cc of __2___% __lidocaine . Under ultrasound guidance the local anesthetics were observed surrounding the roots of the brachial plexus. The needle was removed intact and sterile dressing was applied. The patient had stable vital signs, was conscious and in no apparent distress. The patient tolerated the interscalene block of the bracheal plexus well with stable vital signs and was prepared for subsequent surgery.
[2017-10-21] MEDS ORDERED: HYDROmorphone 0.5 mg/0.5 ml ISec IVP PRN (14:17)
--- NOTE | 2017-10-21 14:33 | RAD ---
PROCEDURE: Open reduction internal fixation left shoulder HISTORY: ORIF LEFT SHOULDER COMPARISON: None TECHNIQUE: Standard protocol for this study/examination. FINDINGS: Total fluoroscopic time (continuous mode) utilized during the procedure (seconds) 26.4. IMPRESSION: Total exam DLP: (mGy) 0.96
--- NOTE | 2017-10-21 15:56 | RAD ---
PROCEDURE: HISTORY: s/p L reverse TSR COMPARISON: None available. TECHNIQUE: Standard protocol for this study/examination. FINDINGS: Satisfactory position alignment of components left total shoulder replacement. IMPRESSION: Satisfactory postoperative status.
--- NOTE | 2017-10-21 15:57 | RAD ---
PROCEDURE: Radiographs of the Left Shoulder HISTORY: s/p L TSR COMPARISON: October 21, 2017. Left humerus FINDINGS: BONES: Satisfactory position alignment of the left shoulder prosthesis. JOINTS: No evidence of subluxation or dislocation of prosthetic components. SOFT TISSUES: Expected postoperative findings in the soft tissues left upper extremity. OTHER FINDINGS: None. IMPRESSION: Satisfactory postoperative status.
--- NOTE | 2017-10-21 16:03 | PCM.SURG1 ---
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 torn/patulous rotator cuff. A/C joint arthropathy. subacromial impingment. adhesions / synovitis /L shoulder subacromial space Post-Operative Diagnosis: as above Operation Performed: L Total shoulder replacement. ORIF L humerus fx. biceps tenodesis. L rotator cuff repair. autograft/allograft bone graft Specimen/Specimens Removed: bone/cartilage/tendon Estimated Blood Loss: EBL {In ML}: 522 Blood Products Given: N/A Drains Used: No Drains, Hemovac Post-Op Condition: Good Date of Surgery/Procedure: 10/21/17 Time of Surgery/Procedure: 09:25 (time in room 810/ anesthesia indcution time)
[2017-10-21] MEDS: ceFAZolin 2 GM in Sodium Chloride 0.9% 100 ML IVPB SCH (17:19)
[2017-10-21] MEDS: Morphine 4 MG/ML VIAL IVP PRN ×2 (19:54→22:42)
[2017-10-21] MEDS ORDERED: Morphine 4 MG/ML VIAL IVP ONE (22:45)
[2017-10-22] MEDS: ceFAZolin 2 GM in Sodium Chloride 0.9% 100 ML IVPB SCH ×3 (00:21→17:00)
[2017-10-22] MEDS: Morphine 4 MG/ML VIAL IVP PRN (04:46)
--- NOTE | 2017-10-22 05:38 | PN ---
CRITICAL CARE PROGRESS NOTE DATE: 10/21/2017 LOCATION: The patient in ICU, bed 422 TIME SPENT: 35 minutes. The patient is seen and evaluated at the bedside. Past medical, surgical, family, and social history reviewed. SUBJECTIVE: A 67-year-old female admitted to ICU, status post left total knee replacement. Past medical history is significant for hypertension, hyperlipidemia, osteoarthritis, status post right shoulder replacement and right knee replacement. No history of diabetes, coronary artery disease, and congestive heart failure. Events in the ER noted. General endo anesthesia, prolonged intubation and operative time. Intake and output in the OR noted, status post transfusion 2 units of packed red blood cells and 2100 Ringer's lactate, remained hemodynamically stable through the operative course, extubated, remains alert, awake, and follows commands appropriate. Denies headache, shortness of breath, chest pain, or palpitation. Complaining of pain at the site of surgery. OBJECTIVE: GENERAL: Middle-aged, moderately obese female, oriented to name, place, and time. VITAL SIGNS: Temperature 98.8, heart rate 67 and regular, blood pressure 137/48, mean arterial pressure 77, and oxygen saturation 100%. Respiratory rate 19. Intake as noted 2900 and output 375, positive balance 2525. Weight of 190 pounds. HEAD, EYES, EARS, NOSE AND THROAT: Pupils reactive. Conjunctivae pink. Sclerae white. NECK: Supple. Trachea central. CHEST: Bilateral breath sounds clear to auscultation. HEART: Rhythm regular. S1 and S2 normal. No audible murmur. ABDOMEN: Bowel sounds present and soft. Liver and spleen not palpable. Bladder not distended. EXTREMITIES: SCD in place. Dorsalis pedis palpable. NEUROLOGIC: Nonfocal. DIAGNOSTIC DATA: X-ray of shoulder and humerus shows postop changes with alignment of the components of left shoulder. CURRENT MEDICATIONS: Tylenol 650 every 4 hours p.r.n., atenolol 50 mg p.o. daily, Lipitor 80 mg p.o. daily, cefazolin 2 g IV every 8 hours x3 doses, Colace 100 mg p.o. twice daily, Ringer's lactate at 80 mL per hour, morphine sulfate 2 mg IV every 4 hours p.r.n. for pain, Zofran 4 mg IV p.r.n. for nausea and vomiting, and Percocet 5/325 two tablets every 4 hours p.r.n. for severe pain. IMPRESSION AND PLAN: 1. Status post total left shoulder replacement, hemodynamically stable, status post transfusion 2 units of packed red blood cells. 2. Severe osteoarthritis. 3. Status post right shoulder and right total knee replacement. No previous anesthetic or postoperative complications except for infection on the right knee, requiring prolonged antibiotic course. 4. Hypertension controlled, on current medications. 5. Hyperlipidemia. Continue statin. Continue with Ancef preoperative prophylaxis. 6. Deep venous thrombosis prophylaxis with Venodyne boots. Consider anticoagulation once cleared by orthopedic surgery consult. Rizwan Montoya MD
[2017-10-22 05:42] LABS: HEMOGLOBIN 10.4 g/dL (12.0-16.0); MEAN CELL VOLUME 89.3 fl (81.0-99.0); MEAN CORPUSCULAR HEMOGLOBIN 30.1 pg (27.0-31.0); MEAN CORPUSCULAR HGB CONC 33.6 g/dL (33.0-37.0); RBC 3.47 Mil/uL (3.80-5.20); RED CELL DISTRIBUTION WIDTH 18.9 % (11.5-14.5)
[2017-10-22 06:05] LABS: BLOOD UREA NITROGEN 14 mg/dl (7-17); GFR AFRICAN-AMERICAN > 60; GFR NON-AFRICAN AMERICAN > 60
--- NOTE | 2017-10-22 09:08 | CP.PCM.PN ---
Subjective - Date & Time of Evaluation Date of Evaluation: 10/22/17 Time of Evaluation: 09:08 - Subjective Subjective: states she continues to have severe pain pain control adjusted adequately hd stable nad transfer to [facility] Objective - Vital Signs/Intake and Output Vital Signs (last 24 hours): Temp Pulse Resp BP Pulse Ox 98.1 F 95 H 26 H 131/77 100 10/22/17 04:00 10/22/17 06:00 10/22/17 06:00 10/22/17 06:00 10/22/17 06:00 Intake and Output: 10/22/17 10/22/17 06:59 18:59 Intake Total 1900 Output Total 1080 Balance 820 - Medications Medications: Current Medications Acetaminophen (Tylenol 325mg Tab) 650 mg PO Q4 PRN PRN Reason: Fever 101 degrees fahrenheit Atenolol (Tenormin) 50 mg PO DAILY [facility] Atorvastatin Calcium (Lipitor) 80 mg PO DAILY [facility] Docusate Sodium (Colace) 100 mg PO BID [facility] Cefazolin Sodium 2 gm/ Sodium (Chloride) 100 mls @ 100 mls/hr IVPB Q8 EMY PRN Reason: Protocol Stop: 10/22/17 17:59 Last Admin: 10/22/17 00:21 Dose: 100 mls/hr Lactated Ringer's (Lactated Ringer's) 1,000 mls @ 80 mls/hr IV .[id number] [facility] Lactated Ringer's (Lactated Ringer's) 1,000 mls @ 125 mls/hr IV .Q8H EMY Last Admin: 10/22/17 04:38 Dose: 125 mls/hr Losartan Potassium (Cozaar) 100 mg PO DAILY [facility] Morphine Sulfate (Morphine) 2 mg IVP Q4 PRN PRN Reason: Pain, severe (8-10) Last Admin: 10/22/17 04:46 Dose: 2 mg Ondansetron HCl (Zofran Inj) 4 mg IVP ONCE PRN PRN Reason: Nausea/Vomiting Oxycodone/Acetaminophen (Percocet 5/325 Mg Tab) 2 tab PO Q4 PRN PRN Reason: Pain, moderate (4-7) Stop: 10/24/17 14:06 - Labs Labs: 10/22/17 05:10 10/22/17 05:10 - Constitutional Appears: Non-toxic, No Acute Distress - Head Exam Head Exam: ATRAUMATIC, NORMOCEPHALIC - Eye Exam Eye Exam: EOMI, Normal appearance, PERRL Pupil Exam: NORMAL ACCOMODATION - ENT Exam ENT Exam: Mucous Membranes Moist - Neck Exam Neck Exam: Full ROM, Normal Inspection - Respiratory Exam Respiratory Exam: Clear to Ausculation Bilateral, NORMAL BREATHING PATTERN - Cardiovascular Exam Cardiovascular Exam: RRR, +S1, +S2 - GI/Abdominal Exam GI & Abdominal Exam: Soft, Normal Bowel Sounds. absent: Tenderness, Mass, Organomegaly - Extremities Exam Extremities Exam: Normal Capillary Refill, Normal Inspection Additional comments: arm in sling - Back Exam Back Exam: absent: CVA tenderness (L), CVA tenderness (R) - Neurological Exam Neurological Exam: Alert, Awake, Oriented x3 - Psychiatric Exam Psychiatric exam: Normal Affect, Normal Mood - Skin Skin Exam: Dry, Normal Color, Warm Assessment and Plan - Assessment and Plan (Free Text) Plan: 67 years old female with hx of Osteoarthritis, comes for an elective Left total shoulder replacement. She has failed conservative treatment and is scheduled for this surgery. She was recently treated for infected right knee which has improved. She was cleared By Dr Yaron CROFT for the surgery. The patient was cleared by her PMD Dr James for the Surgery Pt stable in ICU, however pain not controlled. Transfer to [facility] for further pain management. #. Osteoarthritis for Elective Left total Shoulder replacement - Consult Dr Tom - orthopedic management, VTE per ortho - pain control -Post OP pain management - Physical Therapy post surgery - Occupational Therapy post surgery #. HTN - Continue Tenormin - follow Vital signs #. HLD - lipitor #. DVT prophylaxis post surgery #. Code Status: Full
--- NOTE | 2017-10-22 10:45 | CP.PCM.CON ---
History of Present Illness - History of Present Illness History of Present Illness: THE PATIENT IS A 67 YEAR OLD FEMALE WHO WAS ADMITTED YESTERDAY FOR A LEFT TOTAL SHOULDER REPLACEMENT FOR SEVERE OA AFTER FAILING CONSERVATION PAIN MANAGEMENT SUCH INTRAARTICULAR INJECTIONS AND ANALGESICS. HE HAD PREVIOUS RITHT KNEE AND RIGHT SHOULDER JOINT REPLACEMENTS. SHE ALSO HAS A HISTORY OF HYPERTENSION AND HYPERLIPIDEMIA. SHE DENIES CHEST PAIN, CAD OR DM. CARDIOLOGY WAS ASKED TO FOLLOW HER ON THIS ADMISSION. Past Patient History - Infectious Disease Hx of Infectious Diseases: None - Tetanus Immunizations Tetanus Immunization: Unknown - Past Medical History & Family History Past Medical History?: Yes - Past Social History Smoking Status: Light Smoker < 10 Cigarettes Daily Chewing Tobacco Use: No Cigar Use: No Alcohol: None Drugs: Denies Home Situation {Lives}: With Family - CARDIAC Hx Cardiac Disorders: Yes Hx Hypertension: Yes - PULMONARY Hx Respiratory Disorders: No - NEUROLOGICAL Hx Neurological Disorder: No - HEENT Hx HEENT Problems: No - RENAL Other/Comment: kidney level function was low - ENDOCRINE/METABOLIC Hx Endocrine Disorders: No - HEMATOLOGICAL/ONCOLOGICAL Hx Blood Disorders: No - INTEGUMENTARY Hx Dermatological Problems: No - MUSCULOSKELETAL/RHEUMATOLOGICAL Hx Musculoskeletal Disorders: Yes Hx Arthritis: Yes (right knee) - GASTROINTESTINAL Hx Gastrointestinal Disorders: No - GENITOURINARY/GYNECOLOGICAL Hx Genitourinary Disorders: No - PSYCHIATRIC Hx Psychophysiologic Disorder: No - SURGICAL HISTORY Hx Surgeries: Yes Hx Orthopedic Surgery: Yes (total right knee,) Other/Comment: fx right shoulder - ANESTHESIA Hx Anesthesia: Yes Hx Anesthesia Reactions: No Hx Malignant Hyperthermia: No Has any member of the family had a problem w/ anesthesia?: No Meds Allergies/Adverse Reactions: Allergies Allergy/AdvReac Type Severity Reaction Status Date / Time No Known Allergies Allergy Verified 10/21/17 07:37 - Medications Medications: Current Medications Acetaminophen (Tylenol 325mg Tab) 650 mg PO Q4 PRN PRN Reason: Fever 101 degrees fahrenheit Atenolol (Tenormin) 50 mg PO DAILY [facility] Last Admin: 10/22/17 09:30 Dose: 50 mg Atorvastatin Calcium (Lipitor) 80 mg PO DAILY [facility] Last Admin: 10/22/17 09:30 Dose: 80 mg Docusate Sodium (Colace) 100 mg PO BID [facility] Last Admin: 10/22/17 09:29 Dose: 100 mg Cefazolin Sodium 2 gm/ Sodium (Chloride) 100 mls @ 100 mls/hr IVPB Q8 EMY PRN Reason: Protocol Stop: 10/22/17 17:59 Last Admin: 10/22/17 09:33 Dose: 100 mls/hr Lactated Ringer's (Lactated Ringer's) 1,000 mls @ 80 mls/hr IV .[id number] [facility] Lactated Ringer's (Lactated Ringer's) 1,000 mls @ 125 mls/hr IV .Q8H [facility] Last Admin: 10/22/17 04:38 Dose: 125 mls/hr Losartan Potassium (Cozaar) 100 mg PO DAILY [facility] Last Admin: 10/22/17 09:29 Dose: 100 mg Morphine Sulfate (Morphine) 2 mg IVP Q4 PRN PRN Reason: Pain, severe (8-10) Last Admin: 10/22/17 04:46 Dose: 2 mg Ondansetron HCl (Zofran Inj) 4 mg IVP ONCE PRN PRN Reason: Nausea/Vomiting Oxycodone/Acetaminophen (Percocet 5/325 Mg Tab) 2 tab PO Q4 PRN PRN Reason: Pain, moderate (4-7) Stop: 10/24/17 14:06 Physical Exam - Respiratory Exam Respiratory Exam: Clear to Auscultation Bilateral - Cardiovascular Exam Cardiovascular Exam: REGULAR RHYTHM, +S1, +S2 - Extremities Exam Additional comments: NO EDEMA OF BOTH LOWER EXTREMITIES - Additional Findings Additional findings: EKG NSR, T WAVE INVERSIONS IN THE CHEST LEADS H/H 10 K+ 3.8 Results - Vital Signs Recent Vital Signs: Last Vital Signs Temp 98.1 F 10/22/17 04:00 Pulse 90 10/22/17 09:30 Resp 26 H 10/22/17 06:00 BP 130/80 10/22/17 09:30 Pulse Ox 100 10/22/17 06:00 - Labs Result Diagrams: 10/22/17 05:10 10/22/17 05:10 Labs: Laboratory Results - last 24 hr 10/21/17 10/22/17 10/22/17 06:50 05:10 05:10 WBC 11.0 H RBC 3.47 L Hgb 10.4 L Hct 31.0 L MCV 89.3 D MCH 30.1 MCHC 33.6 RDW 18.9 H Plt Count 232 Sodium 138 Potassium 3.8 Chloride 104 Carbon Dioxide 23 Anion Gap 15 BUN 14 Creatinine 0.8 Est GFR ( Amer) > 60 Est GFR (Non-Af Amer) > 60 Random Glucose 125 H Calcium 8.0 L Blood Type O POSITIVE Antibody Screen Negative Crossmatch See Detail BBK History Checked Patient has bt Assessment & Plan - Assessment and Plan (Free Text) Assessment: TOTAL LEFT SHOULDER REPLACEMENT HYPERTENSION HYPERLIPIDEMIA Plan: CONTINUE LOSARTAN, METOPROLOL AND ATORVASTATIN FOR REHAB
--- NOTE | 2017-10-22 13:33 | CP.PCM.PN ---
Subjective - Date & Time of Evaluation Date of Evaluation: 10/22/17 Time of Evaluation: 08:00 - Subjective Subjective: Patient seen and examined at bedside. In moderate pain. Difficulty sleeping 2nd to pain. No acute events overnight. Objective - Vital Signs/Intake and Output Vital Signs (last 24 hours): Temp Pulse Resp BP Pulse Ox 99.1 F 90 26 H 130/80 100 10/22/17 12:00 10/22/17 09:30 10/22/17 06:00 10/22/17 09:30 10/22/17 06:00 Intake and Output: 10/22/17 10/22/17 06:59 18:59 Intake Total 1900 Output Total 1080 Balance 820 - Medications Medications: Current Medications Acetaminophen (Tylenol 325mg Tab) 650 mg PO Q4 PRN PRN Reason: Fever 101 degrees fahrenheit Atenolol (Tenormin) 50 mg PO DAILY [facility] Last Admin: 10/22/17 09:30 Dose: 50 mg Atorvastatin Calcium (Lipitor) 80 mg PO DAILY [facility] Last Admin: 10/22/17 09:30 Dose: 80 mg Docusate Sodium (Colace) 100 mg PO BID [facility] Last Admin: 10/22/17 09:29 Dose: 100 mg Cefazolin Sodium 2 gm/ Sodium (Chloride) 100 mls @ 100 mls/hr IVPB Q8 EMY PRN Reason: Protocol Stop: 10/22/17 17:59 Last Admin: 10/22/17 09:33 Dose: 100 mls/hr Lactated Ringer's (Lactated Ringer's) 1,000 mls @ 80 mls/hr IV .[id number] [facility] Lactated Ringer's (Lactated Ringer's) 1,000 mls @ 125 mls/hr IV .Q8H [facility] Last Admin: 10/22/17 04:38 Dose: 125 mls/hr Losartan Potassium (Cozaar) 100 mg PO DAILY [facility] Last Admin: 10/22/17 09:29 Dose: 100 mg Morphine Sulfate (Morphine) 2 mg IVP Q4 PRN PRN Reason: Pain, severe (8-10) Last Admin: 10/22/17 04:46 Dose: 2 mg Ondansetron HCl (Zofran Inj) 4 mg IVP ONCE PRN PRN Reason: Nausea/Vomiting Oxycodone/Acetaminophen (Percocet 5/325 Mg Tab) 2 tab PO Q4 PRN PRN Reason: Pain, moderate (4-7) Stop: 10/24/17 14:06 - Labs Labs: 10/22/17 05:10 10/22/17 05:10 - Extremities Exam Additional comments: LUE: Dressings c/d/i, immobilized in sling, + tenderness 2nd to surgery hemovac with mild sang drainage sensation intact MN/UN/RN motor intact MN/UN/RN radial pulse intact Assessment and Plan (1) Degenerative joint disease, shoulder, left Assessment & Plan: POD#1 s/p L revers TSR, L humerus ORIF -Adjust pain regiment, recommend anesthesia consult for nerve block -will keep drain in due to high output, d/c carisa AM -no shoulder ROM, keep in shoulder immobilizer, ROM to hand and wrist ok -PT/OT encourage OOB -ok to transfer to med surg -above d/w Dr. Tom in agreement Status: Acute
--- NOTE | 2017-10-22 23:02 | OP ---
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 OPERATIVE PROCEDURE: 1. Reverse shoulder replacement arthroplasty. 2. Open reduction and internal fixation with long-stem intramedullary humeral component. 3. Excision cyst and bone grafting with autograft bone graft to the glenoid cyst and humeral shaft autograft bone grafting and allograft bone graft. 4. Repair of rotator cuff. 5. Biceps tenodesis. SURGEON: Daniel Tom MD STEAM AND POWER SUPERVISOR: Renetta Angulo, certified registered nursing first aid teacher. SECOND ENAMEL MACHINE OPERATOR: Dc Gonzales PA-C, both these certified registered nursing first aid teacher and PA were necessary to the completion of the operative goal. The patient left the operating room in stable condition with stable fixation and verification of position had been accomplished on image intensification and the patient is stable in recovery. The patient is transferred to the ICU and blood replenishment had been accomplished as per Anesthesia. The patient is stable and intact in recovery and in the ICU postoperatively. TYPE OF ANESTHESIA: General regional anesthesia. ANESTHESIA ADMINISTERED BY: Kamran Rose MD COMPLICATIONS: Intraoperative fracture on shoulder reduction, probably secondary to bone in the humerus. OPERATIVE INDICATION: Mihaela Chase is a patient well known to my practice who presents after successful right total shoulder replacement arthroplasty. The patient presents for left reverse shoulder replacement. Pros, cons, risks and benefits of same were discussed at length with the patient and her son in my office and again with the patient through the culturally competent it senior analyst in the holding area for possibility of mechanical failure, infection, fracture, thromboembolic disease, nerve injury, secondary or tertiary surgery was discussed with the patient and the discomfort, wished the surgery to be accomplished. OPERATIVE PROCEDURE: After having obtained informed consent, after having identified side, site and procedure and critical pause/time-out, after the satisfactory induction of the anesthetic, general and regional after having identified side, site and procedure, after having obtained informed consent, the patient identified as Mihaela Chase was placed in a modified Swanson chair position. The left upper extremity was prepped and free draped in usual fashion for upper extremity surgery. The patient positioned in the modified Swanson chair position. Left upper extremity was prepped and free draped in usual fashion for upper extremity surgery. After sterilely prepping and draping, after having identified side, site and procedure and critical pause/time-out, the topography of the shoulder was marked. The distal third of the clavicle, acromion, coracoid process, and the deltoid cowl. An incision was described from the distal aspect of the clavicle lateral to the cord taking great care to stay lateral to the coracoid process to the area of the deltoid tuberosity. Skin incision was insufflated with 10 mL of 1% lidocaine without epinephrine. The skin incision was insufflated with solution of 1:1000 epinephrine in 200 mL of saline. The skin incision was carried down through the skin and subcutaneous tissue. Dissection was carried down to the skin and subcutaneous tissue and flaps were elevated medially and laterally. With the arm now carefully placed in external rotation and noting again the osteopenic nature of the bone, the patient was placed very carefully in the positioner. The deltopectoral interval was identified and the modified pediatric Joey retractor was placed. This having been accomplished, clavipectoral fascia was identified. Using Metzenbaum scissors, the clavipectoral fascia was incised superficial to the strap musculature. The retractor was placed deep with the arm in external rotation. There was found to be a tear of the rotator cuff in a very patulous rotator cuff. This having been accomplished, the incision was carried out from the lesser tuberosity incorporating the rotator cuff tear, that flap was elevated with progressive external rotation of the arm. This having been accomplished, biceps tenotomy was accomplished in the area of the supraglenoid tubercle. The biceps tendon was tagged and retracted. This having been accomplished with further external rotation of the humerus, the humerus was dislocated. Humerus having been dislocated, the intramedullary canal was found and the cutting guide was incorporated. The cutting guide having been incorporated, the osteotomy was accomplished using the oscillating saw. The oscillating saw osteotomy having been accomplished, the humeral head osteotomy was accomplished. This having been accomplished, humeral head osteotomy having been accomplished, the plate protector was placed and again with the arm carefully placed and using the glenoid retractor, the humeral head was reflected posteriorly. At this point in time, arthrotomy having been accomplished, biceps tenotomy having been accomplished, rotator cuff tear having been identified, and elevation having been accomplished, arthrotomy and excision of the labrum was accomplished. Circumferential labral incision was accomplished. The anterior retractor was placed anteriorly and posteriorly. The retractor was used to expose the glenoid. At this point in time, using a Castillo guide, the mid aspect of the glenoid was found with the Castillo and the guidewire was introduced. Reaming was accomplished for the small glenosphere component. This having been accomplished, the wound was thoroughly irrigated. Reaming having been accomplished using the bur, a glenoplasty was accomplished to more effectively allow the glenosphere and the glenoid baseplate to affix the glenoid. This having been accomplished, there was found to be a cyst in the glenoid. The cyst was curetted and bone graft was applied. This having been accomplished, with the cyst curetted, the bone graft was applied to the glenoid. This having been accomplished, reaming of the central peg of the glenoid was accomplished. This having been accomplished, the glenoid baseplate was affixed after curettage and grafting with the bone graft from the humeral head. This having been accomplished, the glenoid having been applied, the 36 mm glenosphere affixed to the size small baseplate. Glenoid was further fixed with screws 20 mm superiorly and 25 mm inferiorly. The fixation was found to be excellent. Glenosphere was affixed and fixation screw was inserted. At this point in time, attention was turned back to the humerus. Humeral reaming was carried out carefully again because of the osteopenic nature of the bone. With the reaming having been accomplished, trialling was accomplished with the appropriate size 17-mm humeral component. The proximal aspect was reamed. The trialling was accomplished with the zero baseplate and was found be too lose, and three baseplate was found to be snug. At this point in time, great care was taken to carefully dislocate the shoulder. At this point in time with careful care, there was found to be a fracture at the inferior aspect of the stem. Fracture having been noted, under the surgeon's direction, the fluoroscope was positioned, video images were generated and therapeutic decisions were made therefrom. This having been accomplished, the decision was made to perform open reduction and internal fixation with long stem component. The original component was removed. Long stem component was introduced and long stem fixation was accomplished with cerclage wiring. The stem was introduced with cerclage wiring to fix the stem. The fracture was found to be fixed appropriately. It should be noted that an incision was accomplished on the lateral aspect of the humerus. Skin incision was carried down through the skin and subcutaneous tissue. Great care was taken to avoid injury to the radial nerve. The humeral shaft was identified. The fracture was identified and held with bone holding clamp. At this point in time, the wire passer was employed taking great care to stay close to the bone and the cerclage wires were passed. The cerclage wire was passed, snug to the area of bone, so there was no chance of soft tissue interposition or neurovascular injury. Each wire was tightened and crimped and position was verified on image intensification views. At this point in time, the long stem 17 mm humeral component was impacted. It was found to be stable and at the same area and same depth as the primary stem. This having been accomplished, the 3-mm polyethylene was introduced. The shoulder was reduced and found to be stable in all planes. At this point time with the arm in approximately 10 degrees of internal rotation, the rotator cuff was repaired with interrupted FiberWire. The biceps tenodesis was accomplished to that mass with FiberWire. The wound was thoroughly irrigated. It should be noted that autograft and allograft bone graft had been applied to the humeral shaft fracture as well from the humeral head and with allograft bone grafting. This having been accomplished, the wound was thoroughly irrigated and closure of the humeral incisions with interrupted Vicryl, Quill, and mj. The deltopectoral interval was closed with interrupted Quill followed by a Quill, Vicryl, and mj over an 8-inch suction Hemovac drain. Daniel Campos compression dressing and shoulder immobilizer were applied. Daniel Tom MD
[2017-10-23 00:06] VITALS: O2SAT 97
[2017-10-23] MEDS: Morphine 4 MG/ML VIAL IVP PRN (01:42)
--- NOTE | 2017-10-23 06:05 | PN ---
DATE: 10/22/2017 CRITICAL CARE PROGRESS NOTE SUBJECTIVE: The patient in ICU bed 422. Time spent 25 minutes, seen and evaluated at the bed side. Postop day #1 status post left total shoulder replacement secondary to severe ongoing osteoarthritis, remained normotensive, afebrile. Telemetry sinus rhythm. Adequate urine output about 1200 mL. OBJECTIVE: GENERAL: This morning alert, awake, follows commands, appropriate. Complaining of pain at the site of surgery. Denies headache, shortness of breath, palpitation or chest pain. No abdominal pain, has not had bowel movement. VITAL SIGNS: Temperature 98.1, heart rate 83 and regular, respiratory rate 19 to 26 thoracoabdominal, blood pressure 130/80. HEENT: Pupils are reactive. Conjunctivae pink. Sclerae are white. NECK: Supple. Trachea central. CHEST: Bilateral breath sounds, diminished intensity. HEART: Rhythm regular. S1 and S2 normal. No audible murmur. ABDOMEN: Bowel sounds present. Soft. Liver and spleen not palpable. Bladder not distended. EXTREMITIES: Ice pack placed on the shoulder, sling in place. CURRENT MEDICATIONS: Include Tylenol 650 every 4 hours p.r.n., Tenormin 50 mg p.o. daily, Lipitor 80 mg daily, cefazolin 2 g IV every 8 hours x3 doses completed, Colace 100 mg p.o. twice daily, Ringer's lactate 80 mL/hour, Cozaar 100 mg p.o. daily, morphine 2 mg IV every 4 hours p.r.n. for pain, Zofran 4 mg IV p.r.n. for nausea and vomiting, and Percocet 5/325 mg 2 tablets p.o. every 4 hours p.r.n. IMPRESSION: 1. Status post total left shoulder replacement, hemodynamically stable, status post transfusion of 2 units of packed red blood cells. Repeated hemoglobin 8.4. 2. Severe osteoarthritis. 3. Status post right shoulder and the right total knee replacement. 4. Hypertension controlled on current medications. 5. Hyperlipidemia on statin. 6. Deep vein thrombosis and gastrointestinal prophylaxis. PLAN: OT and PT evaluation for ambulation. Continue analgesics as needed to reduce postoperative pain. Rizwan Montoya MD [facility] # [id number]
[2017-10-23 06:58] LABS: BASO # 0.1 K/uL (0.0-0.2); BASO % 0.5 % (0.0-2.0); EOS # 0.1 K/uL (0.0-0.7); EOS % 0.5 % (0.0-4.0); HEMOGLOBIN 9.5 g/dL (12.0-16.0); LYMPH # 2.3 K/uL (1.0-4.3); MEAN CORPUSCULAR HEMOGLOBIN 29.9 pg (27.0-31.0); MEAN CORPUSCULAR HGB CONC 33.2 g/dL (33.0-37.0); MEAN PLATELET VOLUME 8.8 fl (7.2-11.7); MONO # 1.2 K/uL (0.0-0.8); MONO % 9.7 % (0.0-10.0); NEUT # 8.4 K/uL (1.8-7.0); NEUT % 70.3 % (50.0-75.0); RBC 3.17 Mil/uL (3.80-5.20); RED CELL DISTRIBUTION WIDTH 17.5 % (11.5-14.5); WHITE BLOOD COUNT 11.9 K/uL (4.8-10.8)
[2017-10-23 07:13] LABS: BLOOD UREA NITROGEN 10 mg/dl (7-17); CALCIUM 8.6 mg/dL (8.4-10.2); GFR AFRICAN-AMERICAN > 60; GFR NON-AFRICAN AMERICAN > 60
[2017-10-23] MEDS ORDERED: Potassium Chloride 20 mEq ER Tab PO ONE (08:27)
[2017-10-23] MEDS ORDERED: Pneumococcal 23-Valent Vaccine IM ONE (09:00)
--- NOTE | 2017-10-23 12:04 | CP.PCM.PN ---
Subjective - Date & Time of Evaluation Date of Evaluation: 10/23/17 Time of Evaluation: 11:00 - Subjective Subjective: Patient seen and examined OOB to chair comfortable. Pain is well controlled. Able to transfer with minimal difficulty while working with PT. No new complaints Objective - Vital Signs/Intake and Output Vital Signs (last 24 hours): Temp Pulse Resp BP Pulse Ox 98.5 F 96 H 20 124/73 97 10/23/17 09:00 10/23/17 09:00 10/23/17 09:00 10/23/17 09:00 10/23/17 09:00 Intake and Output: 10/23/17 10/23/17 06:59 18:59 Intake Total 1500 Output Total 60 Balance 1440 - Medications Medications: Current Medications Acetaminophen (Tylenol 325mg Tab) 650 mg PO Q4 PRN PRN Reason: Fever 101 degrees fahrenheit Atenolol (Tenormin) 50 mg PO DAILY [facility] Last Admin: 10/23/17 08:26 Dose: 50 mg Atorvastatin Calcium (Lipitor) 80 mg PO DAILY [facility] Last Admin: 10/23/17 08:26 Dose: 80 mg Docusate Sodium (Colace) 100 mg PO BID [facility] Last Admin: 10/23/17 08:25 Dose: 100 mg Lactated Ringer's (Lactated Ringer's) 1,000 mls @ 80 mls/hr IV .[id number] [facility] Last Admin: 10/22/17 19:10 Dose: Not Given Lactated Ringer's (Lactated Ringer's) 1,000 mls @ 125 mls/hr IV .Q8H [facility] Last Admin: 10/22/17 04:38 Dose: 125 mls/hr Losartan Potassium (Cozaar) 100 mg PO DAILY [facility] Last Admin: 10/23/17 08:26 Dose: 100 mg Morphine Sulfate (Morphine) 2 mg IVP Q4 PRN PRN Reason: Pain, severe (8-10) Last Admin: 10/23/17 01:42 Dose: 2 mg Ondansetron HCl (Zofran Inj) 4 mg IVP ONCE PRN PRN Reason: Nausea/Vomiting Oxycodone/Acetaminophen (Percocet 5/325 Mg Tab) 2 tab PO Q4 PRN PRN Reason: Pain, moderate (4-7) Stop: 04/05/18 14:06 - Labs Labs: 10/23/17 05:30 10/23/17 05:30 - Extremities Exam Additional comments: LUE: Dressings c/d/i, immobilized in sling, + tenderness 2nd to surgery hemovac with mild sang drainage, removed today sensation intact MN/UN/RN motor intact MN/UN/RN radial pulse intact Assessment and Plan (1) Degenerative joint disease, shoulder, left Assessment & Plan: POD#2 s/p L reverse TSR, L humerus ORIF -pain controlled -drain removed today -no shoulder ROM, keep in shoulder immobilizer, ROM to hand and wrist ok -PT/OT encourage OOB -cleared to d/c to rehab from orthopedic standpoint -above d/w Dr. Tom in agreement Status: Acute
--- NOTE | 2017-10-23 12:50 | CP.PCM.PN ---
Subjective - Date & Time of Evaluation Date of Evaluation: 10/23/17 Time of Evaluation: 09:30 - Subjective Subjective: NO COMPLAINT EXCEPT FOR LEFT SHOULDER PAIN Objective - Vital Signs/Intake and Output Vital Signs (last 24 hours): Temp Pulse Resp BP Pulse Ox 98.5 F 96 H 20 124/73 97 10/23/17 09:00 10/23/17 09:00 10/23/17 09:00 10/23/17 09:00 10/23/17 09:00 Intake and Output: 10/23/17 10/23/17 06:59 18:59 Intake Total 1500 Output Total 60 Balance 1440 - Medications Medications: Current Medications Acetaminophen (Tylenol 325mg Tab) 650 mg PO Q4 PRN PRN Reason: Fever 101 degrees fahrenheit Atenolol (Tenormin) 50 mg PO DAILY [facility] Last Admin: 10/23/17 08:26 Dose: 50 mg Atorvastatin Calcium (Lipitor) 80 mg PO DAILY [facility] Last Admin: 10/23/17 08:26 Dose: 80 mg Docusate Sodium (Colace) 100 mg PO BID [facility] Last Admin: 10/23/17 08:25 Dose: 100 mg Lactated Ringer's (Lactated Ringer's) 1,000 mls @ 80 mls/hr IV .[id number] [facility] Last Admin: 10/22/17 19:10 Dose: Not Given Lactated Ringer's (Lactated Ringer's) 1,000 mls @ 125 mls/hr IV .Q8H [facility] Last Admin: 10/22/17 04:38 Dose: 125 mls/hr Losartan Potassium (Cozaar) 100 mg PO DAILY [facility] Last Admin: 10/23/17 08:26 Dose: 100 mg Morphine Sulfate (Morphine) 2 mg IVP Q4 PRN PRN Reason: Pain, severe (8-10) Last Admin: 10/23/17 01:42 Dose: 2 mg Ondansetron HCl (Zofran Inj) 4 mg IVP ONCE PRN PRN Reason: Nausea/Vomiting Oxycodone/Acetaminophen (Percocet 5/325 Mg Tab) 2 tab PO Q4 PRN PRN Reason: Pain, moderate (4-7) Stop: 10/24/17 14:06 - Labs Labs: 10/23/17 05:30 10/23/17 05:30 - Respiratory Exam Respiratory Exam: Clear to Ausculation Bilateral - Cardiovascular Exam Cardiovascular Exam: REGULAR RHYTHM, +S1, +S2 - Extremities Exam Additional comments: NO EDEMA OF LE Assessment and Plan - Assessment and Plan (Free Text) Assessment: LEFT SHOULDER REPLACEMENT DUE TO SEVERE OA HYPERTENSION HYPERLIPIDEMIA Plan: CONTINUE LOSARTAN, METOPROLOL AND ATORVASTATIN FOR REHAB
--- NOTE | 2017-10-23 15:57 | CP.PCM.DIS ---
Provider - Provider Date of Admission: 10/21/17 14:05 Attending physician: Robert Daniel Primary care physician: Daniel Tom III, MD Consults: Ortho: Dr Tom Cardio: Dr Bear Time Spent in preparation of Discharge (in minutes): 30 Diagnosis - Discharge Diagnosis (1) Degenerative joint disease, shoulder, left Status: Chronic (2) Status post total shoulder arthroplasty Status: Acute (3) HTN (hypertension) Status: Chronic Priority: Medium (4) Hyperlipidemia Status: Chronic (5) DVT prophylaxis Status: Acute Hospital Course - Lab Results Lab Results: Most Recent Lab Values WBC 11.9 K/uL (4.8-10.8) H 10/23/17 05:30 RBC 3.17 Mil/uL (3.80-5.20) L 10/23/17 05:30 Hgb 9.5 g/dL (12.0-16.0) L 10/23/17 05:30 Hct 28.5 % (34.0-47.0) L 10/23/17 05:30 MCV 90.0 fl (81.0-99.0) 10/23/17 05:30 MCH 29.9 pg (27.0-31.0) 10/23/17 05:30 MCHC 33.2 g/dL (33.0-37.0) 10/23/17 05:30 RDW 17.5 % (11.5-14.5) H 10/23/17 05:30 Plt Count 236 K/uL (130-400) 10/23/17 05:30 MPV 8.8 fl (7.2-11.7) 10/23/17 05:30 Neut % (Auto) 70.3 % (50.0-75.0) 10/23/17 05:30 Lymph % (Auto) 19.0 % (20.0-40.0) L 10/23/17 05:30 [place] % (Auto) 9.7 % (0.0-10.0) 10/23/17 05:30 Eos % (Auto) 0.5 % (0.0-4.0) 10/23/17 05:30 Baso % (Auto) 0.5 % (0.0-2.0) 10/23/17 05:30 Neut # (Auto) 8.4 K/uL (1.8-7.0) H 10/23/17 05:30 Lymph # (Auto) 2.3 K/uL (1.0-4.3) 10/23/17 05:30 [place] # (Auto) 1.2 K/uL (0.0-0.8) H 10/23/17 05:30 Eos # (Auto) 0.1 K/uL (0.0-0.7) 10/23/17 05:30 Baso # (Auto) 0.1 K/uL (0.0-0.2) 10/23/17 05:30 Sodium 144 mmol/l (132-148) 10/23/17 05:30 Potassium 3.5 MMOL/L (3.6-5.0) L 10/23/17 05:30 Chloride 107 mmol/L (98-107) 10/23/17 05:30 Carbon Dioxide 26 mmol/L (22-30) 10/23/17 05:30 Anion Gap 15 (10-20) 10/23/17 05:30 BUN 10 mg/dl (7-17) 10/23/17 05:30 Creatinine 0.8 mg/dl (0.7-1.2) 10/23/17 05:30 Est GFR ( Amer) > 60 10/23/17 05:30 Est GFR (Non-Af Amer) > 60 10/23/17 05:30 Random Glucose 115 mg/dL (65-105) H 10/23/17 05:30 Calcium 8.6 mg/dL (8.4-10.2) 10/23/17 05:30 Blood Type O POSITIVE 10/21/17 06:50 Antibody Screen Negative 10/21/17 06:50 Crossmatch See Detail 10/21/17 06:50 BBK History Checked Patient has bt 10/21/17 06:50 - Hospital Course Hospital Course: 67 years old female with hx of Osteoarthritis, came for an elective Left total shoulder replacement. She has failed conservative treatment. She was recently treated for infected right knee which has improved.She was cleared By Dr Yaron CROFT for the surgery. The patient was cleared by her PMD Dr James for the Surgery Pt underwent Left Total Shoulder Arthroplasty/ORIF Pt was monitored in ICU post op and remained stable. Drain d/c prior to discharge 1. Left Shoulder Primary Osteoarthritis and Avascular Necrosis s/p Left total Shoulder replacement with ORIF - Ortho : Dr Tom -Post OP pain management - Physical Therapy and Occupational therapy - Keep Shoulder immobilizer on 2. HTN - Continue Tenormin and Benicar 3. Hyperlipidemia - cont Statin #. DVT prophylaxis post surgery Lovenox #. Code Status: Full Discharge Exam - Head Exam Head Exam: ATRAUMATIC, NORMAL INSPECTION, NORMOCEPHALIC - Eye Exam Pupil Exam: NORMAL ACCOMODATION - ENT Exam ENT Exam: Mucous Membranes Moist, Normal External Ear Exam - Neck Exam Neck exam: Full Rom - Respiratory Exam Respiratory Exam: NORMAL BREATHING PATTERN. absent: Respiratory Distress - Cardiovascular Exam Cardiovascular Exam: REGULAR RHYTHM, +S1, +S2 - GI/Abdominal Exam GI & Abdominal Exam: Normal Bowel Sounds, Soft. absent: Tenderness - Extremities Exam Extremities exam: normal capillary refill, pedal pulses present Additional comments: left shoulder with immobilizer - Back Exam Back exam: FULL ROM. absent: CVA tenderness (L), CVA tenderness (R) - Neurological Exam Neurological exam: Alert, CN II-XII Intact, Oriented x3, Reflexes Normal - Psychiatric Exam Psychiatric exam: Normal Affect, Normal Mood - Skin Skin Exam: Dry, Normal Color, Warm Discharge Plan - Follow Up Plan Condition: GOOD Disposition: TRANSF TO SNF Instructions: Osteoarthritis (DC), Shoulder Replacement (DC) Additional Instructions: d/c pt to [facility] keep Shoulder immobilizer on, NO ROM to shoulder ff up with Dr Tom in 1 wk Referrals: Daniel Tom III, MD [Primary Care Provider] -
[2017-10-23 16:35] VITALS: BP 107/70; PULSE 84; RESP 18; TEMP 99.4
== END 2017-10-23 18:00 | DRG 483 ==
LOC: H.OPSURG 06:24 → H.ICU/CCU 14:05 → H.MEDSURG1 10-22 14:44
PROVIDERS: ADMIT Internal Medicine; ATTEND Internal Medicine
PROC: 0LS40ZZ Reposition Left Upper Arm Tendon, Open Approach (ICD-10-PCS; 2017-10-21)
PROC: 0PB Upper Bones, Excision (ICD-10-PCS; 2017-10-21)
PROC: 0PR Upper Bones, Replacement (ICD-10-PCS; 2017-10-21)
PROC: 0PR Upper Bones, Replacement (ICD-10-PCS; 2017-10-21)
PROC: 0PSG04Z Reposition Left Humeral Shaft with Internal Fixation Device, Open Approach (ICD-10-PCS; 2017-10-21)
PROC: 3E0T3BZ Introduction of Anesthetic Agent into Peripheral Nerves and Plexi, Percutaneous Approach (ICD-10-PCS; 2017-10-21)
PROC: 0RRK00Z Replacement of Left Shoulder Joint with Reverse Ball and Socket Synthetic Substitute, Open Approach (ICD-10-PCS; 2017-10-21 07:45)
PROC: 3E0234Z Introduction of Serum, Toxoid and Vaccine into Muscle, Percutaneous Approach (ICD-10-PCS; principal; 2017-10-23)
DX: M19.012 Primary osteoarthritis, left shoulder (principal); S42.302A Unspecified fracture of shaft of humerus, left arm, initial encounter for closed fracture; M87.9 Osteonecrosis, unspecified; Z96.611 Presence of right artificial shoulder joint; I10 Essential (primary) hypertension; E78.5 Hyperlipidemia, unspecified; F17.210 Nicotine dependence, cigarettes, uncomplicated; Z96.653 Presence of artificial knee joint, bilateral; Z23 Encounter for immunization; E66.9 Obesity, unspecified; Z68.31 Body mass index [BMI] 31.0-31.9, adult; M75.102 Unspecified rotator cuff tear or rupture of left shoulder, not specified as traumatic; M85.812 Other specified disorders of bone density and structure, left shoulder; M85.612 Other cyst of bone, left shoulder; X58.XXXA Exposure to other specified factors, initial encounter

== ENCOUNTER 2018-03-02 19:39 | Inpatient (IN) | payer MEDICARE ==
[2018-03-02 19:39] VITALS: BMI 37.8
--- NOTE | 2018-03-02 20:32 | ED PDOC ---
Upper Extremity Pain/Injury Time Seen by Provider: 03/02/18 20:08 Chief Complaint (Nursing): Upper Extremity Problem/Injury Chief Complaint (Provider): Fracture History Per: Patient History/Exam Limitations: no limitations Onset/Duration Of Symptoms: Days (Saturday) Additional Complaint(s): Pt. with fall accidentally and seen at another ER. Had a fx on right arm. She was splinted and pt. saw Dr. Tom. Pt. here with increased pain in the area. No numbness, tingles, weakness. No injury elsewhere. Past Medical History Reviewed: Nursing Documentation, Vital Signs Vital Signs: Last Vital Signs Temp 98.5 F 03/02/18 19:43 Pulse 62 03/02/18 19:43 Resp 18 03/02/18 19:43 BP 124/65 03/02/18 19:43 Pulse Ox 99 03/02/18 19:43 - Medical History PMH: Arthritis (right knee), HTN, Hypercholesterolemia, Osteoporosis Denies: CHF, COPD, Hypothyroidism, Chronic Kidney Disease, Rheumatoid Arthritis - Surgical History Other surgeries: shoulder surgery b/l - Family History Family History: States: Unknown Family Hx - Immunization History Hx Tetanus Toxoid Vaccination: Yes Hx Influenza Vaccination: Yes Hx Pneumococcal Vaccination: Yes - Home Medications Home Medications: Ambulatory Orders Medication Instructions Recorded [id number]-Iihp Ethyl Esters 1 GM 2 gm PO BID #0 sgl 11/03/14 [Lovaza] Atorvastatin [Lipitor] 80 mg PO DAILY 11/12/16 Olmesartan Medoxomil [Benicar] 40 mg PO DAILY 11/12/16 Atenolol [Tenormin] 50 mg PO DAILY tab 11/14/16 traMADol [Ultram] 50 mg PO PRN PRN 10/21/17 Acetaminophen [Tylenol 325mg tab] 650 mg PO Q4 PRN tab 10/23/17 Docusate [Colace] 100 mg PO BID cap 10/23/17 Enoxaparin [Lovenox] 40 mg SQ DAILY #1 syr 10/23/17 oxyCODONE/Acetaminophen [Percocet 2 tab PO Q4 PRN tab 10/23/17 5/325 mg Tab] Atenolol 02/25/18 OMEGA 3 02/25/18 Renal-Latrice Tablet 02/25/18 oxyCODONE/Acetaminophen [Percocet 1 - 2 tab PO QID PRN #30 tab 02/25/18 5/325 mg Tab] traMADol 02/25/18 - Allergies Allergies/Adverse Reactions: Allergies Allergy/AdvReac Type Severity Reaction Status Date / Time No Known Allergies Allergy Verified 03/02/18 19:43 Review of Systems ROS Statement: Except As Marked, All Systems Reviewed And Found Negative Musculoskeletal: Positive for: Arm Pain Physical Exam - Reviewed Nursing Documentation Reviewed: Yes Vital Signs Reviewed: Yes - Physical Exam Appears: Positive for: Non-toxic, No Acute Distress Head Exam: Positive for: ATRAUMATIC, NORMAL INSPECTION, NORMOCEPHALIC Skin: Positive for: Normal Color, Warm, DRY Neck: Positive for: Normal, Painless ROM Cardiovascular/Chest: Positive for: Regular Rate, Rhythm Respiratory: Positive for: CNT, Normal Breath Sounds Pulses-Radial (R): 2+ Back: Positive for: Normal Inspection. Negative for: L CVA Tenderness, R CVA Tenderness Extremity: Positive for: Tenderness (R humerous), Other (limited ROM due to pain ; no sensory deficits on R arm; able to make a fist; move thumb and fingers with no issues) Neurologic/Psych: Positive for: Alert, Oriented - ECG O2 Sat by Pulse Oximetry: 99 Pulse Ox Interpretation: Normal - Radiology X-Ray: Interpreted by Me, Viewed By Me X-Ray Interpretation: Fracture (R humerous) - Progress ED Course And Treament: 2039: Pt. in splint. Spoke with Dr. Tom. Pt. increased pain. Will tx and admit for further evaluation. AAOx3. Dr. Coombs aware and will admit. Disposition - Clinical Impression Clinical Impression: Fracture of humerus, right, closed - Patient ED Disposition Is Patient to be Admitted: No Counseled Patient/Family Regarding: Studies Performed, Diagnosis - Disposition Disposition Time: 20:43 Condition: FAIR - Pt Status Changed To: Hospital Disposition Of: Observation - POA Present On Arrival: Falls Or Trauma
[2018-03-02] MEDS ORDERED: Sodium Chloride 0.9% 500 ML IV STA (20:41)
[2018-03-02 21:09] LABS: BASO # 0.1 K/uL (0.0-0.2); BASO % 0.8 % (0.0-2.0); EOS # 0.3 K/uL (0.0-0.7); EOS % 2.4 % (0.0-4.0); HEMOGLOBIN 10.4 g/dL (12.0-16.0); LYMPH # 3.5 K/uL (1.0-4.3); LYMPH % 27.2 % (20.0-40.0); MEAN CELL VOLUME 94.1 fl (81.0-99.0); MEAN PLATELET VOLUME 7.9 fl (7.2-11.7); MONO # 1.2 K/uL (0.0-0.8); MONO % 8.9 % (0.0-10.0); NEUT # 7.9 K/uL (1.8-7.0); NEUT % 60.7 % (50.0-75.0); RBC 3.35 Mil/uL (3.80-5.20)
[2018-03-02 21:20] LABS: INR 0.9; PROTHROMBIN TIME 10.4 Seconds (9.8-13.1)
[2018-03-02 21:22] LABS: PARTIAL THROMBOPLASTIN TIME 27.6 Seconds (25.6-37.1)
[2018-03-02 21:25] LABS: BLOOD UREA NITROGEN 15 mg/dl (7-17); CALCIUM 9.5 mg/dL (8.4-10.2); GFR AFRICAN-AMERICAN > 60; GFR NON-AFRICAN AMERICAN > 60
--- NOTE | 2018-03-02 21:58 | CP.PCM.HP ---
History of Present Illness - History of Present Illness History of Present Illness: Chief complaint: L SHOULDER PAIN HPI: 67 female PMH HTN, HLD and Osteoarthritis who presented to the ED today with worsening sharp severe pain in L shoulder 2/2 fracture after fall. No other complaints. No chest pain or dyspnea at rest or on exertion. HD stable , NAD. Medically stable for OR, METs >4, RCRI score 0. ROS: per HPI all other systems reviewed and negative PMH: HTN; HLD; Osteoarthritis PSH: Right Shoulder replacement; Right Total Knee replacement SH: No illegal drug use; No Alcohol; Smokes 2 cigarets/day for 21 years; Live with family FH: State: No known family hx Allergies: NKDA Medication: Reviewed Present on Admission - Present on Admission Any Indicators Present on Admission: No Past Patient History - Infectious Disease Hx of Infectious Diseases: None - Tetanus Immunizations Tetanus Immunization: Unknown - Past Medical History & Family History Past Medical History?: Yes - Past Social History Smoking Status: Former Smoker - CARDIAC Hx Congestive Heart Failure: No Hx Hypercholesterolemia: Yes Hx Hypertension: Yes - PULMONARY Hx Chronic Obstructive Pulmonary Disease (COPD): No - NEUROLOGICAL Hx Neurological Disorder: No - HEENT Hx HEENT Problems: No - RENAL Hx Chronic Kidney Disease: No - ENDOCRINE/METABOLIC Hx Hypothyroidism: No - HEMATOLOGICAL/ONCOLOGICAL Hx Blood Disorders: No - INTEGUMENTARY Hx Dermatological Problems: No - MUSCULOSKELETAL/RHEUMATOLOGICAL Hx Arthritis: Yes (right knee) Hx Osteoporosis: Yes Hx Rheumatoid Arthritis: No - GASTROINTESTINAL Hx Gastrointestinal Disorders: No - GENITOURINARY/GYNECOLOGICAL Hx Genitourinary Disorders: No - PSYCHIATRIC Hx Psychophysiologic Disorder: No Hx Substance Use: No - SURGICAL HISTORY Hx Surgeries: Yes Hx Orthopedic Surgery: Yes (R knee replacement- B/l reverse TSR) - ANESTHESIA Hx Anesthesia: Yes Hx Anesthesia Reactions: No Meds Allergies/Adverse Reactions: Allergies Allergy/AdvReac Type Severity Reaction Status Date / Time No Known Allergies Allergy Verified 03/02/18 19:43 Physical Exam - Constitutional Additional comments: Vitals Reviewed GEN: WDWN, alert, cooperative HEENT: NCAT, PERRL, EOMI HEART: RRR, +S1S2, NO MRG LUNG: CTAB, NO WRR ABD: soft, NT, ND, No HSM, No masses EXT: shoulder in splint, wrapped. normal pedal pulses, normal capillary refill NEURO: awake, alert, no focal deficits SKIN: warm, dry PSYCH: normal mood, normal affect Results - Vital Signs Recent Vital Signs: Last Vital Signs Temp 98.5 F 03/02/18 21:31 Pulse 61 03/02/18 21:31 Resp 16 03/02/18 21:31 BP 111/57 L 03/02/18 21:31 Pulse Ox 97 03/02/18 21:31 - Labs Result Diagrams: 03/02/18 21:04 03/02/18 21:04 Labs: Laboratory Results - last 24 hr 03/02/18 03/02/18 03/02/18 21:04 21:04 21:04 WBC 13.0 H RBC 3.35 L Hgb 10.4 L Hct 31.5 L MCV 94.1 D MCH 31.0 MCHC 33.0 RDW 15.0 H Plt Count 380 D MPV 7.9 Neut % (Auto) 60.7 Lymph % (Auto) 27.2 [place] % (Auto) 8.9 Eos % (Auto) 2.4 Baso % (Auto) 0.8 Neut # (Auto) 7.9 H Lymph # (Auto) 3.5 [place] # (Auto) 1.2 H Eos # (Auto) 0.3 Baso # (Auto) 0.1 PT 10.4 INR 0.9 APTT 27.6 Sodium 139 Potassium 5.0 Chloride 105 Carbon Dioxide 26 Anion Gap 13 BUN 15 Creatinine 0.9 Est GFR ( Amer) > 60 Est GFR (Non-Af Amer) > 60 Random Glucose 97 Calcium 9.5 Troponin I < 0.0120 Assessment & Plan - Assessment and Plan (Free Text) Plan: 67 female PMH HTN, HLD and Osteoarthritis who presented to the ED today with worsening sharp severe pain in L shoulder 2/2 fracture after fall. No other complaints. No chest pain or dyspnea at rest or on exertion. HD stable , NAD. Medically stable for OR, METs >4, RCRI score 0. L SHOULDER PAIN L SHOULDER FRACTURE OSTEOARTHRITIS Orthopedic surgery consult Dr. Tom pain control with Dilaudid 0.5 mg IV for mod pain labs in AM NPO past MN except meds maintenance fluids HTN HLD continue Atenolol and Benicar SCDs
[2018-03-02] MEDS ORDERED: HYDROmorphone 0.5 mg/0.5 ml ISec IVP PRN (22:45)
[2018-03-03 04:38] LABS: SQUAMOUS EPITHIAL 2 /hpf (0-5); URINE BILIRUBIN NEGATIVE (NEGATIVE); URINE BLOOD NEGATIVE (NEGATIVE); URINE CLARITY SLIGHTY-CLOUDY (Clear); URINE COLOR AMBER (YELLOW); URINE GLUCOSE (UA) NEG (Normal); URINE LEUKOCYTE ESTERASE NEG Leu/uL (Negative); URINE PROTEIN NEGATIVE (NEGATIVE); URINE UROBILINOGEN 0.2-1.0 mg/dL (0.2-1.0)
[2018-03-03] MEDS ORDERED: EPINEPHrine 1 mg/ml (1:1000) Inj ONE ×2 (07:24→07:46)
[2018-03-03] MEDS ORDERED: Absorbable Gelatin Sponge Size 12-7 ONE (07:25)
[2018-03-03] MEDS ORDERED: GELATIN SPONGE,ABSORB/PORCINE 1 EACH SPONGE TP ONE ×2 (07:25→10:25)
[2018-03-03] MEDS ORDERED: Thrombin Topical 5,000 Int Units Spray Kit ONE ×2 (07:25→10:25)
[2018-03-03] MEDS ORDERED: Succinylcholine 200 mg/10 ml Inj IV ONE (07:37)
[2018-03-03] MEDS ORDERED: Rocuronium 10 mg/ml (5 ml) ONE ×3 (07:37→12:48)
[2018-03-03] MEDS ORDERED: Lidocaine 4% (Laryng-O-Jet) Kit MM ONE (07:37)
[2018-03-03] MEDS ORDERED: Etomidate 20 mg/10ml Inj IV ONE (07:37)
[2018-03-03] MEDS ORDERED: Propofol 10 mg/ml Inj (20 ML) ONE (07:37)
--- NOTE | 2018-03-03 07:39 | CP.PCM.CON ---
History of Present Illness - History of Present Illness History of Present Illness: Orthopedic consultation Dr. Tom 67F s/p right reverse TSA for fracture 10/2014 fell 02/25/2018 and sustained right humerus periprosthetic fracture. Denies numbness/tingling. Denies pain in other extremities. Review of Systems - Review of Systems All systems: reviewed and no additional remarkable complaints except - Musculoskeletal Musculoskeletal: As Per HPI Past Patient History - Infectious Disease Hx of Infectious Diseases: None - Tetanus Immunizations Tetanus Immunization: Unknown - Past Medical History & Family History Past Medical History?: Yes Past Family History: Reviewed and not pertinent - Past Social History Smoking Status: Former Smoker - CARDIAC Hx Cardiac Disorders: Yes Hx Congestive Heart Failure: No Hx Hypercholesterolemia: Yes Hx Hypertension: Yes - PULMONARY Hx Respiratory Disorders: No Hx Chronic Obstructive Pulmonary Disease (COPD): No - NEUROLOGICAL Hx Neurological Disorder: No - HEENT Hx HEENT Problems: No - RENAL Hx Chronic Kidney Disease: No - ENDOCRINE/METABOLIC Hx Hypothyroidism: No - HEMATOLOGICAL/ONCOLOGICAL Hx Blood Disorders: No Hx AIDS: No Hx Human Immunodeficiency Virus (HIV): No - INTEGUMENTARY Hx Dermatological Problems: No - MUSCULOSKELETAL/RHEUMATOLOGICAL Hx Arthritis: Yes (right knee) Hx Falls: Yes Hx Osteoporosis: Yes Hx Rheumatoid Arthritis: No - GASTROINTESTINAL Hx Gastrointestinal Disorders: No - GENITOURINARY/GYNECOLOGICAL Hx Genitourinary Disorders: No - PSYCHIATRIC Hx Psychophysiologic Disorder: No Hx Substance Use: No - SURGICAL HISTORY Hx Surgeries: Yes Hx Orthopedic Surgery: Yes (R knee replacement- B/l reverse TSR) - ANESTHESIA Hx Anesthesia: Yes Hx Anesthesia Reactions: No Meds Allergies/Adverse Reactions: Allergies Allergy/AdvReac Type Severity Reaction Status Date / Time No Known Allergies Allergy Verified 03/02/18 19:43 - Medications Medications: Current Medications Atenolol (Tenormin) 50 mg PO DAILY [facility] Atorvastatin Calcium (Lipitor) 80 mg PO DAILY [facility] Hydromorphone HCl (Dilaudid) 0.5 mg IVP Q6 PRN PRN Reason: Pain, moderate (4-7) Losartan Potassium (Cozaar) 100 mg PO DAILY [facility] Ondansetron HCl (Zofran Inj) 4 mg IVP Q6 PRN PRN Reason: Nausea/Vomiting Tramadol HCl (Ultram) 50 mg PO Q6 PRN PRN Reason: Pain, Mild (1-3) Physical Exam - Constitutional Appears: Well, No Acute Distress - Respiratory Exam Respiratory Exam: NORMAL BREATHING PATTERN - Extremities Exam Additional comments: Right knee: 3cm superficial abrasion to knee, cleaned and bacitracin/island dressing applied - Expanded Upper Extremities Exam Right Neuro motor exam: finger 2-5 abduction intact, thumb abduction, thumb IP flexion intact, thumb opposition intact, wrist extension intact Neurosensory exam: median nerve intact, radial nerve intact, ulnar nerve intact Vascular exam: radial pulse - Neurological Exam Neurological exam: Alert, Oriented x3 - Skin Skin Exam: Dry, Intact (+ecchymosis to right arm/shoulder), Warm Results - Vital Signs Recent Vital Signs: Last Vital Signs Temp 98.4 F 03/02/18 23:43 Pulse 85 03/02/18 23:43 Resp 18 03/02/18 23:43 BP 133/65 03/02/18 23:43 Pulse Ox 97 03/02/18 23:43 - Labs Result Diagrams: 03/03/18 14:30 03/03/18 14:30 Labs: Laboratory Results - last 24 hr 03/02/18 03/02/18 03/02/18 21:04 21:04 21:04 WBC 13.0 H RBC 3.35 L Hgb 10.4 L Hct 31.5 L MCV 94.1 D MCH 31.0 MCHC 33.0 RDW 15.0 H Plt Count 380 D MPV 7.9 Neut % (Auto) 60.7 Lymph % (Auto) 27.2 [place] % (Auto) 8.9 Eos % (Auto) 2.4 Baso % (Auto) 0.8 Neut # (Auto) 7.9 H Lymph # (Auto) 3.5 [place] # (Auto) 1.2 H Eos # (Auto) 0.3 Baso # (Auto) 0.1 PT 10.4 INR 0.9 APTT 27.6 Sodium 139 Potassium 5.0 Chloride 105 Carbon Dioxide 26 Anion Gap 13 BUN 15 Creatinine 0.9 Est GFR ( Amer) > 60 Est GFR (Non-Af Amer) > 60 Random Glucose 97 Calcium 9.5 Troponin I < 0.0120 Urine Color Urine Clarity Urine pH Ur Specific [place] Urine Protein Urine Glucose (UA) Urine Ketones Urine Blood Urine Nitrate Urine Bilirubin Urine Urobilinogen Ur Leukocyte Esterase Urine RBC (Auto) Urine Microscopic WBC Ur Squamous Epith Cells 03/03/18 04:00 WBC RBC Hgb Hct MCV MCH MCHC RDW Plt Count MPV Neut % (Auto) Lymph % (Auto) [place] % (Auto) Eos % (Auto) Baso % (Auto) Neut # (Auto) Lymph # (Auto) [place] # (Auto) Eos # (Auto) Baso # (Auto) PT INR APTT Sodium Potassium Chloride Carbon Dioxide Anion Gap BUN Creatinine Est GFR ( Amer) Est GFR (Non-Af Amer) Random Glucose Calcium Troponin I Urine Color [place] Urine Clarity Slighty-cloudy Urine pH 5.0 Ur Specific [place] 1.018 Urine Protein Negative Urine Glucose (UA) Neg Urine Ketones Negative Urine Blood Negative Urine Nitrate Negative Urine Bilirubin Negative Urine Urobilinogen 0.2-1.0 Ur Leukocyte Esterase Neg Urine RBC (Auto) 1 Urine Microscopic WBC 4 Ur Squamous Epith Cells 2 Assessment & Plan (1) Periprosthetic fracture around internal prosthetic right shoulder joint Assessment and Plan: NPO for OR today T&C d/w Dr. Tom, agrees with above shoulder immob Status: Acute
[2018-03-03] MEDS ORDERED: Bupivacaine HCl 0.5% PF (30 ml) Inj ONE (07:46)
[2018-03-03] MEDS ORDERED: Neostigmine 1:1000 (1 mg/ml) Inj ONE (07:46)
--- NOTE | 2018-03-03 08:00 | CARD ---
APPROVED REPORT Date of service: 03/02/2018 EKG Measurement Heart [id number] <Conclusion> Normal sinus rhythm T wave abnormality consider anterior wall ischemia. Abnormal ECG
--- NOTE | 2018-03-03 08:19 | RAD ---
Date of service: 03/02/2018 HISTORY: Trauma COMPARISON: 10/18/2017. FINDINGS: LUNGS: The lungs are well inflated and clear. PLEURA: No significant pleural effusion identified, no pneumothorax apparent. CARDIOVASCULAR: Normal. OSSEOUS STRUCTURES: Status post bilateral shoulder arthroplasties. No evidence for dislocation VISUALIZED UPPER ABDOMEN: Normal. OTHER FINDINGS: None. IMPRESSION: No acute findings.
[2018-03-03 08:30] LABS: HEMOGLOBIN 9.3 g/dL (12.0-16.0); MEAN CELL VOLUME 93.7 fl (81.0-99.0); MEAN CORPUSCULAR HEMOGLOBIN 32.1 pg (27.0-31.0); MEAN CORPUSCULAR HGB CONC 34.2 g/dL (33.0-37.0); RBC 2.91 Mil/uL (3.80-5.20); RED CELL DISTRIBUTION WIDTH 14.9 % (11.5-14.5); WHITE BLOOD COUNT 11.2 K/uL (4.8-10.8)
[2018-03-03 08:43] LABS: BLOOD UREA NITROGEN 16 mg/dl (7-17); CALCIUM 8.5 mg/dL (8.4-10.2); GFR AFRICAN-AMERICAN > 60; GFR NON-AFRICAN AMERICAN 55
[2018-03-03] MEDS ORDERED: Lactated Ringer's 1,000 ML IV ONE (09:00)
--- NOTE | 2018-03-03 09:01 | RAD ---
PROCEDURE: Radiographs of the right humerus. HISTORY: fall and fx COMPARISON: None. FINDINGS: BONES: There is an acute comminuted displaced fracture in the midshaft of the humerus with 2.6 cm distraction of fracture fragments and 2.0 cm lateral displacement. There is also lateral angulation. Status post right shoulder arthroplasty. No glenohumeral dislocation. SOFT TISSUES: Normal. OTHER FINDINGS: None. IMPRESSION: Acute comminuted displaced fracture in the midshaft of the humerus as described above. No dislocation.
[2018-03-03] MEDS ORDERED: ePHEDrine 50 mg/ml Inj ONE (09:07)
[2018-03-03] MEDS ORDERED: Phenylephrine 10 mg/ml Inj ONE ×2 (09:14→12:19)
[2018-03-03] MEDS ORDERED: Sodium Chloride 0.9% 1,000 ML IV ONE (09:25)
[2018-03-03] MEDS ORDERED: Calcium Chloride 1000 mg/10 ml Syringe IV ONE ×2 (09:36→12:18)
[2018-03-03 10:58] LABS: FLUID TYPE SYNOVIAL FLUID
[2018-03-03] MEDS ORDERED: ceFAZolin IV 1 gm in Dextrose 2 GM/100 ML BAG IVPB ONE (12:20)
[2018-03-03 13:03] LABS: SF GROSS APPEARANCE CLOUDY (CLEAR); SYNOVIAL FLUID COMMENT BLOODY
[2018-03-03 13:04] LABS: SYNOVIAL FLUID MONO/MACROPHAGE 3 % (0-0)
[2018-03-03] MEDS ORDERED: Bacitracin Ointment 30 GM TUBE ONE (13:25)
[2018-03-03] MEDS ORDERED: Lactated Ringer's 1,000 ML IV SCH (14:15)
[2018-03-03] MEDS ORDERED: HYDROmorphone 0.5 mg/0.5 ml ISec IVP PRN (14:16)
--- NOTE | 2018-03-03 14:22 | PCM.ANESB1 ---
Interscalene Block - Brachial Plexus Date of Procedure: 03/03/18 Anesthesiologist: Loyd Pre-Procedure Diagnosis: Right periprosthetic humerus fracture Post-Procedure Diagnosis: Same Procedure Performed: Interscalene Block of Brachial Plexus Right - Procedure Interscalene Block of Brachial Plexus: This procedure was explained to the patient that it is for post-operative pain management. Consent was obtained after a thorough discussion with the patient regarding the benefits and possible complications of local anesthetic block of the Brachial Plexus at the Interscalene area. The patient was brought to the Operating Room and standard monitors were applied. Time out was held with the circulating nurse to confirm the correct surgery and appropriate block. After applying Oxygen by nasal cannula and administering IV Sedation, the patient's head was gently rotated away from the __right____operative shoulder and the anterior scalene groove was carefully palpated. The ultrasound transducer was then applied to the skin in the transverse plane and the brachial plexus was visualized lateral to the carotid artery and in between the anterior and middle scalene muscles. After identification,the anterior lateral portion of the neck was prepped with chloraprep and Lidocaine 1% was injected subcutaneously for topical analgesia. At this point, a # 22 gauge Stimuplex 2 inches insulated needle was inserted into the interscalene groove and directed in a caudal and midline direction. The needle was inserted lateral to the ultrasound transducer in-plane towards the brachial plexus in a [id number] direction. Needle advancement was performed carefully under direct ultrasound visualization. Nerve stimulator was used and twitched of the affected extremity including the hand brachialis muscles, biceps and the deltoid was obtained at a current of __0.4___MA. After repeated negative aspiration,__2___cc of__0.5%___,___bupivacaine with 1:200:00o epinephrine were injected and this was followed with _28____cc of _0.5____% ___bupivacaine with epinephrine . Under ultrasound guidance the local anesthetics were observed surrounding the roots of the brachial plexus. The needle was removed intact. The patient had stable vital signs, was conscious and in no apparent distress. The patient tolerated the interscalene block of the bracheal plexus well with stable vital signs and was prepared for subsequent surgery.
[2018-03-03] MEDS ORDERED: HYDROmorphone 1 mg/ml ISec IVP PRN (14:26)
--- NOTE | 2018-03-03 14:35 | PCM.SURG1 ---
Surgeon's Initial Post Op Note - Surgeon's Notes Surgeon: Juhi Tom MD Psychiatric Lpn: Amber Chao PA-C Type of Anesthesia: General Endo, Block Regional Anesthesia Administered By: Dr. Harp Pre-Operative Diagnosis: Right periprosthetic midshaft humerus fracture, comminuted Operative Findings: see full dictation. 4uPRBC. 1uFFP. 550cc EBL. 1L IVF Post-Operative Diagnosis: same Operation Performed: Right shoulder revision reverse total shoulder replacement. ORIF Right humerus periprosthetic fracture/cerclage wiring. allograft bone graft. allograft nerve graft Specimen/Specimens Removed: bone. implant Estimated Blood Loss: EBL {In ML}: 550 Blood Products Given: PRBC, FFP Drains Used: Hemovac Post-Op Condition: Fair Date of Surgery/Procedure: 03/03/18 Time of Surgery/Procedure: 14:36
[2018-03-03 14:48] LABS: MEAN CELL VOLUME 91.8 fl (81.0-99.0); MEAN CORPUSCULAR HEMOGLOBIN 30.7 pg (27.0-31.0); MEAN CORPUSCULAR HGB CONC 33.4 g/dL (33.0-37.0); RBC 4.23 Mil/uL (3.80-5.20); RED CELL DISTRIBUTION WIDTH 14.9 % (11.5-14.5); WHITE BLOOD COUNT 16.9 K/uL (4.8-10.8)
[2018-03-03 14:54] LABS: PARTIAL THROMBOPLASTIN TIME 21.1 Seconds (25.6-37.1)
[2018-03-03 15:06] LABS: BLOOD UREA NITROGEN 15 mg/dl (7-17); CALCIUM 9.9 mg/dL (8.4-10.2); GFR AFRICAN-AMERICAN > 60; GFR NON-AFRICAN AMERICAN 55
--- NOTE | 2018-03-03 16:08 | RAD ---
PROCEDURE: Radiographs of the right humerus. HISTORY: s/p revision shoulder replacement/ORIF COMPARISON: None. FINDINGS: BONES: Major fracture fragments of the right humerus are anatomically aligned. SOFT TISSUES: Postoperative soft tissue swelling. Surgical drains identified. OTHER FINDINGS: None. IMPRESSION: Satisfactory postoperative status.
--- NOTE | 2018-03-03 16:12 | RAD ---
Date of service: 03/03/2018 PROCEDURE: Radiographs of the Right Shoulder HISTORY: s/p revision shoulder replacement/ORIF COMPARISON: No prior. FINDINGS: BONES: Satisfactory appearance of glenoid and humeral components of revised right shoulder replacement JOINTS: Expected postoperative findings. SOFT TISSUES: Postoperative findings, soft tissue swelling noted as are surgical drains. OTHER FINDINGS: None. IMPRESSION: Satisfactory postoperative status.
[2018-03-03] MEDS: Sodium Chloride 0.9% 1,000 ML IV SCH (16:20)
--- NOTE | 2018-03-03 16:52 | CP.PCM.PN ---
Subjective - Date & Time of Evaluation Date of Evaluation: 03/03/18 Time of Evaluation: 16:50 - Subjective Subjective: Pt seen in Recovery Room post op Pt is awake, requesting for some water denies Pain no SOB no CP no abd pain Objective - Vital Signs/Intake and Output Vital Signs (last 24 hours): Temp Pulse Resp BP Pulse Ox 98.9 F 76 18 105/67 100 03/03/18 15:05 03/03/18 15:05 03/03/18 15:05 03/03/18 15:05 03/03/18 15:05 Intake and Output: 03/03/18 03/03/18 06:59 18:59 Intake Total 2600 Balance 2600 - Medications Medications: Current Medications Acetaminophen (Tylenol 325mg Tab) 650 mg PO Q6 [facility] Atenolol (Tenormin) 50 mg PO DAILY [facility] Atorvastatin Calcium (Lipitor) 80 mg PO DAILY [facility] Docusate Sodium (Colace) 100 mg PO BID [facility] Hydromorphone HCl (Dilaudid) 0.5 mg IVP Q4 PRN PRN Reason: Pain, severe (8-10) Lactated Ringer's (Lactated Ringer's) 1,000 mls @ 50 mls/hr IV .Q20H [facility] Cefazolin Sodium/Dextrose (Ancef Iv 2 Gm Duplex) 2 gm in 50 mls @ 50 mls/hr IVPB Q8 [facility]Y PRN Reason: Protocol Sodium Chloride (Sodium Chloride 0.9%) 1,000 mls @ 80 mls/hr IV .[id number] [facility] Stop: 03/05/18 03:59 Losartan Potassium (Cozaar) 100 mg PO DAILY [facility] Ondansetron HCl (Zofran Inj) 4 mg IVP Q6 PRN PRN Reason: Nausea/Vomiting Tramadol HCl (Ultram) 50 mg PO Q6 PRN PRN Reason: Pain, Mild (1-3) - Labs Labs: 03/03/18 14:30 03/03/18 14:30 PT 11.0 Seconds (9.8-13.1) 03/03/18 14:30 INR 1.0 03/03/18 14:30 APTT 21.1 Seconds (25.6-37.1) L 03/03/18 14:30 - Constitutional Appears: No Acute Distress - Head Exam Head Exam: NORMOCEPHALIC - Eye Exam Eye Exam: EOMI, Normal appearance Pupil Exam: NORMAL ACCOMODATION - ENT Exam ENT Exam: Mucous Membranes Dry, Normal External Ear Exam - Neck Exam Neck Exam: Full ROM. absent: Meningismus - Respiratory Exam Respiratory Exam: NORMAL BREATHING PATTERN. absent: Rales, Wheezes, Respiratory Distress - Cardiovascular Exam Cardiovascular Exam: REGULAR RHYTHM, +S1, +S2 - GI/Abdominal Exam GI & Abdominal Exam: Soft, Normal Bowel Sounds. absent: Tenderness - Extremities Exam Extremities Exam: Normal Capillary Refill. absent: Calf Tenderness Additional comments: Right Upper extremity with shoulder immobolizer and Hemovac in place - Back Exam Back Exam: Full ROM. absent: CVA tenderness (L), CVA tenderness (R) - Neurological Exam Neurological Exam: Alert, Awake, CN II-XII Intact, Oriented x3 - Psychiatric Exam Psychiatric exam: Normal Affect, Normal Mood - Skin Skin Exam: Dry, Normal Color, Warm Assessment and Plan (1) Periprosthetic fracture around internal prosthetic right shoulder joint Status: Acute (2) S/P ORIF (open reduction internal fixation) fracture Status: Acute (3) Status post total shoulder arthroplasty Status: Acute (4) Chronic disease anemia Status: Chronic (5) HTN (hypertension) Status: Acute (6) HTN (hypertension) Status: Chronic (7) Hyperlipidemia Status: Chronic - Assessment and Plan (Free Text) Assessment: 67 female PMH HTN, HLD and Osteoarthritis who presented to the ED with worsening sharp severe pain in the right shoulder 2/2 fracture after fall. Xray of the Humerus : Acute comminuted displaced fracture in the midshaft of the humerus (1) Periprosthetic fracture around internal prosthetic right shoulder joint S/P ORIF (open reduction internal fixation) fracture, Right Status post Revision total shoulder arthroplasty, Right Status: Acute Pt doing well post op Ortho : DR Tom Pain controlled Hemovac in place Shoulder immobilizer on Pain mgt PT/OT consult (2) Chronic disease anemia Status: Chronic Pt has hx of chronic anemia - baseline Hgb =9.3 , pt was transfused in the OR (3) HTN (hypertension) Status: Acute Pt on Losartan and Atenolol at home will monitor BP (4) Hyperlipidemia Status: Chronic cont statin DVT proph -SCD for now
[2018-03-03] MEDS ORDERED: ceFAZolin IV 2 gm in Dextrose 2 GM/50 ML BAG IVPB SCH (17:00)
[2018-03-03] MEDS: ceFAZolin IV 2 gm in Dextrose 2 GM/50 ML BAG IVPB SCH (21:23)
[2018-03-04] MEDS: ceFAZolin IV 2 gm in Dextrose 2 GM/50 ML BAG IVPB SCH ×3 (04:34→20:51)
[2018-03-04] MEDS: Sodium Chloride 0.9% 1,000 ML IV SCH ×2 (05:52→22:58)
[2018-03-04 06:46] LABS: HEMOGLOBIN 10.8 g/dL (12.0-16.0); MEAN CORPUSCULAR HEMOGLOBIN 31.1 pg (27.0-31.0); MEAN CORPUSCULAR HGB CONC 33.7 g/dL (33.0-37.0); RBC 3.46 Mil/uL (3.80-5.20); RED CELL DISTRIBUTION WIDTH 15.3 % (11.5-14.5); WHITE BLOOD COUNT 16.5 K/uL (4.8-10.8)
[2018-03-04 07:08] LABS: BLOOD UREA NITROGEN 15 mg/dl (7-17); CALCIUM 7.8 mg/dL (8.4-10.2); GFR AFRICAN-AMERICAN > 60; GFR NON-AFRICAN AMERICAN 55
--- NOTE | 2018-03-04 07:43 | CP.PCM.PN ---
Subjective - Date & Time of Evaluation Date of Evaluation: 03/04/18 Time of Evaluation: 07:43 - Subjective Subjective: Patient seen and examined at bedside. RUE pain controlled, complaining of pain at back of head, however improved since yesterday. No other complaints. Objective - Vital Signs/Intake and Output Vital Signs (last 24 hours): Temp Pulse Resp BP Pulse Ox 99.7 F H 92 H 18 111/71 95 03/04/18 03:59 03/04/18 03:59 03/04/18 03:59 03/04/18 03:59 03/04/18 03:59 Intake and Output: 03/04/18 03/04/18 06:59 18:59 Intake Total 1250 Output Total 20 Balance 1230 - Medications Medications: Current Medications Acetaminophen (Tylenol 325mg Tab) 650 mg PO Q6 [facility] Last Admin: 03/04/18 04:00 Dose: Not Given Atenolol (Tenormin) 50 mg PO DAILY [facility] Last Admin: 03/03/18 19:25 Dose: 50 mg Atorvastatin Calcium (Lipitor) 80 mg PO DAILY [facility] Last Admin: 03/03/18 19:26 Dose: 80 mg Docusate Sodium (Colace) 100 mg PO BID [facility] Last Admin: 03/03/18 19:24 Dose: 100 mg Hydromorphone HCl (Dilaudid) 0.5 mg IVP Q4 PRN PRN Reason: Pain, severe (8-10) Last Admin: 03/04/18 04:38 Dose: 0.5 mg Lactated Ringer's (Lactated Ringer's) 1,000 mls @ 50 mls/hr IV .Q20H [facility] Sodium Chloride (Sodium Chloride 0.9%) 1,000 mls @ 80 mls/hr IV .[id number] [facility] Stop: 03/05/18 03:59 Last Admin: 03/04/18 05:52 Dose: 80 mls/hr Cefazolin Sodium/Dextrose (Ancef Iv 2 Gm Duplex) 2 gm in 50 mls @ 50 mls/hr IVPB Q8@0500,1300,2100 EMY PRN Reason: Protocol Last Admin: 03/04/18 04:34 Dose: 50 mls/hr Losartan Potassium (Cozaar) 100 mg PO DAILY [facility] Last Admin: 03/03/18 19:25 Dose: 100 mg Ondansetron HCl (Zofran Inj) 4 mg IVP Q6 PRN PRN Reason: Nausea/Vomiting Tramadol HCl (Ultram) 50 mg PO Q6 PRN PRN Reason: Pain, Mild (1-3) Last Admin: 03/03/18 22:56 Dose: 50 mg - Labs Labs: 03/04/18 05:40 03/04/18 05:40 PT 11.0 Seconds (9.8-13.1) 03/03/18 14:30 INR 1.0 03/03/18 14:30 APTT 21.1 Seconds (25.6-37.1) L 03/03/18 14:30 - Extremities Exam Additional comments: RUE: shoulder immobilizer in place, Dressings CDI, Hemovac intact with minimal sangiunous drainage (20cc output overnight) sensation intact AXN/MN/UN/RN motor intact MN/UN/RN radial pulse intact Assessment and Plan (1) Fracture of humerus, right, closed Assessment & Plan: POD #1 s/p right revision reverse TSR and ORIF humerus fx -pain control -head pain likely due to operative positioning, continue cold compress -Hemovac removed -PT/OT, NWB RUE -orthopedically stable for discharge to TCU -above d/w Dr. Tom in agreement Status: Acute
--- NOTE | 2018-03-04 10:27 | CP.PCM.CON ---
History of Present Illness - History of Present Illness History of Present Illness: THE PATIENT IS A 67 YEAR OLD FEMALE WHO HAS A PRIOR RIGHT SHOULDER ARTHROPLASTY WHO FELL RECENTLY AND SUSTAINED FRACTURES OF THE RIGHT HUMERUS AND WAS ADMITTED 2 DAYS AGO AND HAD SURGERY YESTERDAY. SHE ALSO HAS HYPERTENSION AND HYPERLIPIDEMIA. CARDIOLOGY WAS ASKED TO SEE AND FOLLOW THIS PATIENT. SHE DENIES CHEST PAIN OR SOB. SHE DENIES ANY CAD HISTORY. Past Patient History - Infectious Disease Hx of Infectious Diseases: None - Tetanus Immunizations Tetanus Immunization: Unknown - Past Medical History & Family History Past Medical History?: Yes Past Family History: Reviewed and not pertinent - Past Social History Smoking Status: Former Smoker - CARDIAC Hx Cardiac Disorders: Yes Hx Congestive Heart Failure: No Hx Hypercholesterolemia: Yes Hx Hypertension: Yes - PULMONARY Hx Respiratory Disorders: No Hx Chronic Obstructive Pulmonary Disease (COPD): No - NEUROLOGICAL Hx Neurological Disorder: No - HEENT Hx HEENT Problems: No - RENAL Hx Chronic Kidney Disease: No - ENDOCRINE/METABOLIC Hx Hypothyroidism: No - HEMATOLOGICAL/ONCOLOGICAL Hx Blood Disorders: No Hx AIDS: No Hx Human Immunodeficiency Virus (HIV): No - INTEGUMENTARY Hx Dermatological Problems: No - MUSCULOSKELETAL/RHEUMATOLOGICAL Hx Arthritis: Yes (right knee) Hx Falls: Yes Hx Osteoporosis: Yes Hx Rheumatoid Arthritis: No - GASTROINTESTINAL Hx Gastrointestinal Disorders: No - GENITOURINARY/GYNECOLOGICAL Hx Genitourinary Disorders: No - PSYCHIATRIC Hx Psychophysiologic Disorder: No Hx Substance Use: No - SURGICAL HISTORY Hx Surgeries: Yes Hx Orthopedic Surgery: Yes (R knee replacement- B/l reverse TSR) - ANESTHESIA Hx Anesthesia: Yes Hx Anesthesia Reactions: No Meds Allergies/Adverse Reactions: Allergies Allergy/AdvReac Type Severity Reaction Status Date / Time No Known Allergies Allergy Verified 03/02/18 19:43 - Medications Medications: Current Medications Acetaminophen (Tylenol 325mg Tab) 650 mg PO Q6 [facility] Last Admin: 03/04/18 09:00 Dose: 650 mg Atenolol (Tenormin) 50 mg PO DAILY [facility] Last Admin: 03/04/18 08:49 Dose: 50 mg Atorvastatin Calcium (Lipitor) 80 mg PO DAILY [facility] Last Admin: 03/04/18 08:54 Dose: 80 mg Docusate Sodium (Colace) 100 mg PO BID [facility] Last Admin: 03/04/18 08:48 Dose: 100 mg Hydromorphone HCl (Dilaudid) 0.5 mg IVP Q4 PRN PRN Reason: Pain, severe (8-10) Last Admin: 03/04/18 04:38 Dose: 0.5 mg Lactated Ringer's (Lactated Ringer's) 1,000 mls @ 50 mls/hr IV .Q20H [facility] Sodium Chloride (Sodium Chloride 0.9%) 1,000 mls @ 80 mls/hr IV .[id number] [facility]Y Stop: 03/05/18 03:59 Last Admin: 03/04/18 05:52 Dose: 80 mls/hr Cefazolin Sodium/Dextrose (Ancef Iv 2 Gm Duplex) 2 gm in 50 mls @ 50 mls/hr IVPB Q8@0500,1300,2100 [facility]Y PRN Reason: Protocol Last Admin: 03/04/18 04:34 Dose: 50 mls/hr Losartan Potassium (Cozaar) 100 mg PO DAILY [facility] Last Admin: 03/03/18 19:25 Dose: 100 mg Ondansetron HCl (Zofran Inj) 4 mg IVP Q6 PRN PRN Reason: Nausea/Vomiting Tramadol HCl (Ultram) 50 mg PO Q6 PRN PRN Reason: Pain, Mild (1-3) Last Admin: 03/04/18 08:58 Dose: 50 mg Physical Exam - Respiratory Exam Respiratory Exam: Clear to Auscultation Bilateral - Cardiovascular Exam Cardiovascular Exam: REGULAR RHYTHM, +S1, +S2 - Extremities Exam Additional comments: RUE IN A SLING BOTH LE WITHOUT ANY EDEMA - Additional Findings Additional findings: EKG NSR, MILD T WAVE INVERSIONS IN THE CHEST LEADS H/H 05/21 OR NOTES REVIEWED Results - Vital Signs Recent Vital Signs: Last Vital Signs Temp 100.6 F H 03/04/18 09:00 Pulse 88 03/04/18 08:49 Resp 20 03/04/18 08:02 BP 115/72 03/04/18 08:49 Pulse Ox 97 03/04/18 08:02 - Labs Result Diagrams: 03/04/18 05:40 03/04/18 05:40 Labs: Laboratory Results - last 24 hr 03/03/18 03/03/18 03/03/18 08:17 10:45 14:30 WBC 16.9 H D RBC 4.23 Hgb 13.0 D Hct 38.8 MCV 91.8 MCH 30.7 MCHC 33.4 RDW 14.9 H Plt Count 325 PT INR APTT Sodium Potassium Chloride Carbon Dioxide Anion Gap BUN Creatinine Est GFR ( Amer) Est GFR (Non-Af Amer) Random Glucose Calcium Fluid Type Synovial fluid Synovial WBC 14.0 Synovial RBC 85296.0 H Synovial Neutrophils 31.0 H Synovial Lymphocytes 16.0 H Synov Monos/Macrophage 3 H Synovial Fluid Comment Bloody Blood Type O POSITIVE Antibody Screen Negative Crossmatch See Detail BBK History Checked Patient has bt 03/03/18 03/03/18 03/04/18 14:30 14:30 05:40 WBC 16.5 H RBC 3.46 L Hgb 10.8 L D Hct 31.9 L MCV 92.0 MCH 31.1 H MCHC 33.7 RDW 15.3 H Plt Count 259 PT 11.0 INR 1.0 APTT 21.1 L Sodium 141 Potassium 5.0 Chloride 108 H Carbon Dioxide 23 Anion Gap 15 BUN 15 Creatinine 1.0 Est GFR ( Amer) > 60 Est GFR (Non-Af Amer) 55 Random Glucose 102 Calcium 9.9 Fluid Type Synovial WBC Synovial RBC Synovial Neutrophils Synovial Lymphocytes Synov Monos/Macrophage Synovial Fluid Comment Blood Type Antibody Screen Crossmatch BBK History Checked 03/04/18 05:40 WBC RBC Hgb Hct MCV MCH MCHC RDW Plt Count PT INR APTT Sodium 137 Potassium 4.3 Chloride 107 Carbon Dioxide 23 Anion Gap 11 BUN 15 Creatinine 1.0 Est GFR ( Amer) > 60 Est GFR (Non-Af Amer) 55 Random Glucose 106 H Calcium 7.8 L Fluid Type Synovial WBC Synovial RBC Synovial Neutrophils Synovial Lymphocytes Synov Monos/Macrophage Synovial Fluid Comment Blood Type Antibody Screen Crossmatch BBK History Checked Assessment & Plan - Assessment and Plan (Free Text) Assessment: S/P FALL WITH RIGHT HUMERUS FRACTURS AND SURGICAL REPAIR HYPERTENSION HYPERLIPIDEMIA Plan: CONTINUE ANTIBIOTICS, LOSARTAN, TEMORMEN AND ATORVASTATIN
--- NOTE | 2018-03-04 12:23 | RAD ---
Date of service: 03/03/2018 PROCEDURE: Fluoroscopy in excess of 1 hour. HISTORY: RIGHT SHOULDER COMPARISON: None TECHNIQUE: Standard protocol for this study/examination. FINDINGS: Total fluoroscopic time (continuous mode) utilized during the procedure 74.9 (seconds). IMPRESSION: Submitted images from the current procedure: Greater than 20
--- NOTE | 2018-03-04 12:39 | CP.PCM.PN ---
Subjective - Date & Time of Evaluation Date of Evaluation: 03/04/18 Time of Evaluation: 11:30 - Subjective Subjective: Pt states that her pain is controlled has low grade fever denies cough no CP no SOB no abd pain no dysuria complains of bump and sl discomfort - occipital area - discussed w/ Ortho PA and she states this is likely from the head positioning while in the OR during surgery. Objective - Vital Signs/Intake and Output Vital Signs (last 24 hours): Temp Pulse Resp BP Pulse Ox 100.6 F H 80 20 115/72 97 03/04/18 09:00 03/04/18 11:43 03/04/18 08:02 03/04/18 08:49 03/04/18 08:02 Intake and Output: 03/04/18 03/04/18 06:59 18:59 Intake Total 1250 Output Total 20 Balance 1230 - Medications Medications: Current Medications Acetaminophen (Tylenol 325mg Tab) 650 mg PO Q6 [facility] Last Admin: 03/04/18 09:00 Dose: 650 mg Atenolol (Tenormin) 50 mg PO DAILY [facility] Last Admin: 03/04/18 08:49 Dose: 50 mg Atorvastatin Calcium (Lipitor) 80 mg PO DAILY [facility] Last Admin: 03/04/18 08:54 Dose: 80 mg Docusate Sodium (Colace) 100 mg PO BID [facility] Last Admin: 03/04/18 08:48 Dose: 100 mg Hydromorphone HCl (Dilaudid) 0.5 mg IVP Q4 PRN PRN Reason: Pain, severe (8-10) Last Admin: 03/04/18 04:38 Dose: 0.5 mg Lactated Ringer's (Lactated Ringer's) 1,000 mls @ 50 mls/hr IV .Q20H [facility]Y Sodium Chloride (Sodium Chloride 0.9%) 1,000 mls @ 80 mls/hr IV .[id number] [facility] Stop: 03/05/18 03:59 Last Admin: 03/04/18 05:52 Dose: 80 mls/hr Cefazolin Sodium/Dextrose (Ancef Iv 2 Gm Duplex) 2 gm in 50 mls @ 50 mls/hr IVPB Q8@0500,1300,2100 EMY PRN Reason: Protocol Last Admin: 03/04/18 04:34 Dose: 50 mls/hr Losartan Potassium (Cozaar) 100 mg PO DAILY [facility] Last Admin: 03/03/18 19:25 Dose: 100 mg Ondansetron HCl (Zofran Inj) 4 mg IVP Q6 PRN PRN Reason: Nausea/Vomiting Tramadol HCl (Ultram) 50 mg PO Q6 PRN PRN Reason: Pain, Mild (1-3) Last Admin: 03/04/18 08:58 Dose: 50 mg - Labs Labs: 03/04/18 05:40 03/04/18 05:40 PT 11.0 Seconds (9.8-13.1) 03/03/18 14:30 INR 1.0 03/03/18 14:30 APTT 21.1 Seconds (25.6-37.1) L 03/03/18 14:30 - Constitutional Appears: No Acute Distress - Head Exam Head Exam: NORMOCEPHALIC - Eye Exam Eye Exam: EOMI, Normal appearance Pupil Exam: NORMAL ACCOMODATION - ENT Exam ENT Exam: Mucous Membranes Dry, Normal External Ear Exam - Neck Exam Neck Exam: Full ROM. absent: Meningismus - Respiratory Exam Respiratory Exam: NORMAL BREATHING PATTERN. absent: Rales, Wheezes, Respiratory Distress - Cardiovascular Exam Cardiovascular Exam: REGULAR RHYTHM, +S1, +S2 - GI/Abdominal Exam GI & Abdominal Exam: Soft, Normal Bowel Sounds. absent: Tenderness - Extremities Exam Extremities Exam: Normal Capillary Refill. absent: Calf Tenderness Additional comments: Right Upper extremity with shoulder immobolizer and Hemovac in place - Back Exam Back Exam: Full ROM. absent: CVA tenderness (L), CVA tenderness (R) - Neurological Exam Neurological Exam: Alert, Awake, CN II-XII Intact, Oriented x3 - Psychiatric Exam Psychiatric exam: Normal Affect, Normal Mood - Skin Skin Exam: Dry, Normal Color, Warm Assessment and Plan (1) Periprosthetic fracture around internal prosthetic right shoulder joint Status: Acute (2) S/P ORIF (open reduction internal fixation) fracture Status: Acute (3) Status post total shoulder arthroplasty Status: Acute (4) Chronic disease anemia Status: Chronic (5) HTN (hypertension) Status: Acute (6) HTN (hypertension) Status: Chronic (7) Hyperlipidemia Status: Chronic - Assessment and Plan (Free Text) Assessment: 67 female PMH HTN, HLD and Osteoarthritis who presented to the ED with worsening sharp severe pain in the right shoulder 2/2 fracture after fall. Xray of the Humerus : Acute comminuted displaced fracture in the midshaft of the humerus (1) Periprosthetic fracture around internal prosthetic right shoulder joint S/P ORIF (open reduction internal fixation) fracture, Right Status post Revision total shoulder arthroplasty, Right Status: Acute Pt doing well post op Ortho : DR Tom Pain controlled Hemovac in place Shoulder immobilizer on Pain mgt PT/OT consult (2) Chronic disease anemia Status: Chronic Pt has hx of chronic anemia - baseline Hgb = 9.3 , pt was transfused in the OR hgb now 10.8 post transfusion (3) HTN (hypertension) Status: Acute Pt on Losartan and Atenolol at home will monitor BP cont Atenolol for now, hold Losartan as BP low normal (4) Hyperlipidemia Status: Chronic cont statin 5. Knee Abrasions ( present on admission) local wound care with Bactroban DVT proph -SCD for now- we will defer to Ortho
[2018-03-04] MEDS: Mupirocin 2% Oint 1GM UD TOP SCH (17:22)
--- NOTE | 2018-03-05 04:54 | OP ---
Copied To: Daniel Tom MD Attending MD: Daniel Tom MD PROCEDURE DATE: 03/03/2018 PREOPERATIVE DIAGNOSIS: Displaced comminuted periprosthetic humerus fracture. POSTOPERATIVE DIAGNOSES: 1. Displaced comminuted periprosthetic humerus fracture. 2. Radial nerve entrapment. PROCEDURES: 1. Revision total shoulder replacement arthroplasty, reverse type. 2. Open reduction and internal fixation of complex comminuted displaced humeral shaft fracture. 3. Exploration of radial nerve neurolysis. 4. Autograft, allograft bone graft. 5. Application of shoulder immobilizer. 6. Positioning of fluoroscope and interpretation of video images. SURGEON: Daniel Tom MD RIGGING LOFT REPAIRER: Alicja Contreras PA-C [employer] MAKER HAND: TAPAN Hilton, certified registered nursing promotions assistant sales marketing. ANESTHESIA: General endotracheal anesthesia and regional block anesthesia by Dr. Harp. BLOOD LOSS: Approximately 475 mL. COMPLICATIONS: No complications. DRAIN: One Hemovac drain. TIME OF SURGERY: Time in the room approximately 08:15. Incision time approximately 10:13. OPERATIVE INDICATION: Mihaela Chase is a 67-year-old woman who is several years status post right shoulder replacement arthroplasty. The patient sustained a fall on the outstretched right upper extremity sustaining a fracture of the humeral shaft. The patient was seen in the emergency room, admitted as an emergency because of increasing pain and radial nerve symptoms with some numbness and tingling and weakness of the EPL. The patient is admitted, prepared for surgery, cleared medically. Pros, cons, risks and benefits of surgical approach were discussed. Concept of revision shoulder replacement arthroplasty was discussed. The concept of open reduction and internal fixation was discussed. The concept of nerve injury, mechanical failure, progression of nerve deficit, possibility of mechanical failure, infection, thromboembolic disease, secondary or tertiary surgery was discussed at length with the patient through the culturally competent loan processing supervisor, her son. Informed consent was also obtained through the culturally competent loan processing supervisor designated, Haven in the operating room. OPERATIVE PROCEDURE: After having obtained informed consent in the above fashion, after having identified side, site and procedure and a critical pause/time-out after the satisfactory induction of general and regional anesthetic, the patient identified as Mihaela Chase in the modified Swanson chair position. The right upper extremity was prepped and free draped in usual fashion for upper extremity surgery. Under the surgeon's direction, the fluoroscope was positioned prior to prepping and draping. Preoperative planning had been done preoperatively and intraoperatively under the surgeon's direction, the fluoroscope was positioned, video images were generated, therapeutic decisions were made therefrom. This having been accomplished after sterilely prepping and draping, after the satisfactory induction of the general and regional anesthetic by Dr. Harp, after having identified the side, site and procedure and critical pause/time-out, the patient identified as Mihaela Chase. Right upper extremity was identified as the proper extremity. The right upper extremity was prepped and draped in usual fashion for upper extremity surgery. An incision was described extending from the original proximal arthroplasty incision. An ellipse of skin was outlined as well. The skin incision was carried out in the plane lateral to the mid aspect of the humerus to three fingerbreadths above the lateral epicondyle. The skin incision is insufflated with a solution of 1:1000 epinephrine in 200 mL of saline. The skin incision was carried down through the skin and subcutaneous tissue. Hemostasis controlled with the Aquamantys. The deltopectoral interval was difficult to identify with the arm in external rotation, the proximal fragment is totally unstable. Verification of position is offered on image intensification views. This having been accomplished, the capsule was identified. Great care was taken to preserve the axillary nerve. The pseudocapsule was identified. Dissection was carried down distally and the interval between the biceps and the humeral shaft is developed approximately. The radial nerve was identified at the mid aspect of the humerus and was carefully dissected. At this point in time, the proximal aspect of the fracture was found to be comminuted and a very difficult reconstructive challenge. The original prosthesis was found to be loose. The glenosphere was evaluated and the glenosphere was found to be intact. Humeral prosthesis was found to be grossly loose. This having been accomplished, the humeral prosthesis having been found to be grossly loose, the humeral prosthesis was removed. Hemostasis controlled with the Aquamantys. There was marked bleeding, although no major vessels were encountered. Great care was taken to protect the radial nerve. The radial nerve is actually directly at the aspect of the fracture and the radial nerve was explored to the split to the posterior interosseous branch and the superficial sensory branch of the radial nerve. This having been accomplished, the proximal fragment was placed together and was held with interrupted cables. The cables having been employed, the three fragments proximally were converted to one fragment. This was accomplished with #5 FiberWire and at least three to four cables. This having been accomplished at this point in time, the distal fragment is identified. The distal fragment is in apposition to the nerve. The nerve was carefully at this point in time explored. This was accomplished under magnification eyeglass control. The radial nerve was explored and careful radial neurolysis was accomplished. The radial nerve was ensnared with the two branches with Isaías drains to prevent further damage. The butterfly spike is in the proximity of the radial nerve, so bone clamps were not found around it. This having been accomplished, the distal fragment is affixed to the proximal fragment with cerclage wires. Multiple, at least 4 cerclage wires were used to affix the proximal fragment to the distal fragment. At this point in time, a proximal humeral osteotomy was accomplished with preoperative and intraoperative planning reference. The guidewire was passed through the fragment. The fragments were found to be appropriately aligned. Reaming was carried out through a #7.5 AO reamer. This having been accomplished, trialing was accomplished with the 180 millimeter Castillo prosthesis. The fixation was found to be excellent. Trialing was accomplished at the humeral osteotomy was accomplished and all of the base plates were employed 9 mm x2 and then the +6 poly. The shoulder was reduced and found to be stable in all planes. Further cerclage wires were affixed and further #5 FiberWire. This having been accomplished, verification was offered under image intensification views. This having been accomplished, the wound was thoroughly irrigated and at this point, the nerve is found to be a moderate discontinuity, so repair was accomplished with the nerve jacket device. The jacket having been applied and appropriately interspersed between the traction of the cables and the radial nerve to protect the radial nerve. Repair of the radial nerve with this allograft is accomplished. This having been accomplished, the appropriate 180 millimeter noncemented Castillo stem was introduced and the fixation was found to be Press-Fit with no rotation at all. The fragments were found to be appropriately fixed. There was no discontinuity of rotation. There was excellent fixation. Further cerclage wires were applied. Please refer to the fluoroscope views. This having been accomplished at this point in time, autograft from the original fracture and allograft was accomplished in the area of the fracture medially and posteriorly. This having been accomplished, the wound was thoroughly irrigated. Radial neurolysis and repair having been accomplished, the rotator cuff and capsule identified and are placed through the proximal aspect of the fracture prosthesis. A #2 fiber wire and #5 fiber wire were used to repair the prosthesis to the capsule and rotator cuff. The wound was thoroughly irrigated. Closures in layers, #2 Quill followed by 0 Quill, Vicryl, mj for skin over an 8-inch suction Hemovac drain. Prior to closure, an image intensification view was accomplished and found to be acceptable. Daniel Campos compression dressing, shoulder mobilizer was applied. Neurocirculatory status of the radial nerve was found to be intact on postoperative day #1. OPERATIVE PROCEDURES: 1. Revision complex right shoulder replacement arthroplasty. 2. Open reduction and internal fixation of displaced comminuted humeral fracture. 3. Radial nerve exploration and repair using magnification. 4. Radial neurolysis and use of nerve jacket. 5. Autograft, allograft bone graft. 6. Positioning of fluoroscope and interpretation of video images. 7. Application of Daniel Campos compression dressing and shoulder immobilizer. Due to the intensity of the preoperative and intraoperative planning and also the duration of procedure, this procedure deserves a complexity modifier. Daniel Tom MD
[2018-03-05 06:42] LABS: HEMOGLOBIN 9.5 g/dL (12.0-16.0); MEAN CELL VOLUME 93.3 fl (81.0-99.0); MEAN CORPUSCULAR HEMOGLOBIN 30.9 pg (27.0-31.0); MEAN CORPUSCULAR HGB CONC 33.1 g/dL (33.0-37.0); RBC 3.07 Mil/uL (3.80-5.20); RED CELL DISTRIBUTION WIDTH 15.2 % (11.5-14.5); WHITE BLOOD COUNT 15.7 K/uL (4.8-10.8)
[2018-03-05 07:07] LABS: BLOOD UREA NITROGEN 11 mg/dl (7-17); CALCIUM 7.3 mg/dL (8.4-10.2); GFR AFRICAN-AMERICAN > 60; GFR NON-AFRICAN AMERICAN > 60
[2018-03-05] MEDS: Mupirocin 2% Oint 1GM UD TOP SCH ×2 (09:39→16:30)
[2018-03-05] MEDS: Cholecalciferol 1,000 INTLU TAB PO SCH (09:43)
--- NOTE | 2018-03-05 10:31 | CP.PCM.PN ---
Subjective - Date & Time of Evaluation Date of Evaluation: 03/05/18 Time of Evaluation: 07:30 - Subjective Subjective: Patient seen and examined at bedside. Pain moderate but improved since yesterday. Pain at the back of her head is minimal. No other complaints. Denies CP/SOB/dizziness. Objective - Vital Signs/Intake and Output Vital Signs (last 24 hours): Temp Pulse Resp BP Pulse Ox 98.0 F 79 18 102/66 97 03/05/18 08:08 03/05/18 09:40 03/05/18 08:08 03/05/18 09:40 03/05/18 08:08 - Medications Medications: Current Medications Acetaminophen (Tylenol 325mg Tab) 650 mg PO Q6 [facility] Last Admin: 03/05/18 09:41 Dose: 650 mg Atenolol (Tenormin) 50 mg PO DAILY [facility] Last Admin: 03/05/18 09:40 Dose: 50 mg Atorvastatin Calcium (Lipitor) 80 mg PO DAILY [facility] Last Admin: 03/05/18 09:40 Dose: 80 mg Calcium Carbonate (Oscal) 500 mg PO DAILY [facility] Last Admin: 03/05/18 09:40 Dose: 500 mg Cholecalciferol (Vitamin D) 2,000 intlu PO DAILY [facility] Last Admin: 03/05/18 09:43 Dose: 2,000 intlu Docusate Sodium (Colace) 100 mg PO BID [facility] Last Admin: 03/05/18 09:39 Dose: 100 mg Ferrous Sulfate (Feosol) 325 mg PO BID [facility] Last Admin: 03/05/18 09:39 Dose: 325 mg Hydromorphone HCl (Dilaudid) 0.5 mg IVP Q4 PRN PRN Reason: Pain, severe (8-10) Last Admin: 03/04/18 04:38 Dose: 0.5 mg Lactated Ringer's (Lactated Ringer's) 1,000 mls @ 50 mls/hr IV .Q20H [facility] Losartan Potassium (Cozaar) 100 mg PO DAILY [facility] Last Admin: 03/03/18 19:25 Dose: 100 mg Mupirocin (Bactroban Ointment) 1 applic TOP BID [facility] Last Admin: 03/05/18 09:39 Dose: 1 applic Ondansetron HCl (Zofran Inj) 4 mg IVP Q6 PRN PRN Reason: Nausea/Vomiting Tramadol HCl (Ultram) 50 mg PO Q6 PRN PRN Reason: Pain, Mild (1-3) Last Admin: 03/05/18 09:41 Dose: 50 mg - Labs Labs: 03/05/18 05:40 03/05/18 05:40 PT 11.0 Seconds (9.8-13.1) 03/03/18 14:30 INR 1.0 03/03/18 14:30 APTT 21.1 Seconds (25.6-37.1) L 03/03/18 14:30 - Extremities Exam Additional comments: RUE: shoulder immobilizer in place, Dressings CDI, dressings removed revealing wound CDI with mj, Hemovac site CDI sensation intact AXN/MN/UN/RN motor intact MN/UN/RN radial pulse intact Assessment and Plan (1) Fracture of humerus, right, closed Assessment & Plan: POD #2 s/p right revision reverse TSR and ORIF humerus fx -Dressings changed -pain control -PT/OT, NWB RUE, keep immobilized in brace -orthopedically stable for discharge -above d/w Dr. Tom in agreement Status: Acute
--- NOTE | 2018-03-05 12:33 | CP.PCM.PN ---
Subjective - Date & Time of Evaluation Date of Evaluation: 03/05/18 Time of Evaluation: 10:30 - Subjective Subjective: NO CHEST PAIN OR SOB Objective - Vital Signs/Intake and Output Vital Signs (last 24 hours): Temp Pulse Resp BP Pulse Ox 98.0 F 79 18 102/66 97 03/05/18 08:08 03/05/18 09:40 03/05/18 08:08 03/05/18 09:40 03/05/18 08:08 - Medications Medications: Current Medications Acetaminophen (Tylenol 325mg Tab) 650 mg PO Q6 [facility] Last Admin: 03/05/18 09:41 Dose: 650 mg Atenolol (Tenormin) 50 mg PO DAILY [facility] Last Admin: 03/05/18 09:40 Dose: 50 mg Atorvastatin Calcium (Lipitor) 80 mg PO DAILY [facility] Last Admin: 03/05/18 09:40 Dose: 80 mg Calcium Carbonate (Oscal) 500 mg PO DAILY [facility] Last Admin: 03/05/18 09:40 Dose: 500 mg Cholecalciferol (Vitamin D) 2,000 intlu PO DAILY [facility] Last Admin: 03/05/18 09:43 Dose: 2,000 intlu Docusate Sodium (Colace) 100 mg PO BID [facility] Last Admin: 03/05/18 09:39 Dose: 100 mg Ferrous Sulfate (Feosol) 325 mg PO BID [facility] Last Admin: 03/05/18 09:39 Dose: 325 mg Hydromorphone HCl (Dilaudid) 0.5 mg IVP Q4 PRN PRN Reason: Pain, severe (8-10) Last Admin: 03/04/18 04:38 Dose: 0.5 mg Lactated Ringer's (Lactated Ringer's) 1,000 mls @ 50 mls/hr IV .Q20H [facility] Losartan Potassium (Cozaar) 100 mg PO DAILY [facility] Last Admin: 03/03/18 19:25 Dose: 100 mg Mupirocin (Bactroban Ointment) 1 applic TOP BID [facility] Last Admin: 03/05/18 09:39 Dose: 1 applic Ondansetron HCl (Zofran Inj) 4 mg IVP Q6 PRN PRN Reason: Nausea/Vomiting Tramadol HCl (Ultram) 50 mg PO Q6 PRN PRN Reason: Pain, Mild (1-3) Last Admin: 03/05/18 09:41 Dose: 50 mg - Labs Labs: 03/05/18 05:40 03/05/18 05:40 PT 11.0 Seconds (9.8-13.1) 03/03/18 14:30 INR 1.0 03/03/18 14:30 APTT 21.1 Seconds (25.6-37.1) L 03/03/18 14:30 - Respiratory Exam Respiratory Exam: Clear to Ausculation Bilateral - Cardiovascular Exam Cardiovascular Exam: REGULAR RHYTHM, +S1, +S2 - Extremities Exam Additional comments: RUE IN A SLING NO EDEMA OF LE Assessment and Plan - Assessment and Plan (Free Text) Assessment: S/P REPAIR OF RIGHT SHOULDER FRACTURE HYPERTENSION HYPERLIPIDEMIA Plan: CONTINUE LOSARTAN, ATORVASTATIN AND ATENOLOL
--- NOTE | 2018-03-05 15:32 | CP.PCM.PN ---
Subjective - Date & Time of Evaluation Date of Evaluation: 03/05/18 Time of Evaluation: 15:32 - Subjective Subjective: doing well no complaints today would like DEDE, insurance denied discussed with social work will request peer to peer Objective - Vital Signs/Intake and Output Vital Signs (last 24 hours): Temp Pulse Resp BP Pulse Ox 98.0 F 79 18 102/66 97 03/05/18 08:08 03/05/18 09:40 03/05/18 08:08 03/05/18 09:40 03/05/18 08:08 - Medications Medications: Current Medications Acetaminophen (Tylenol 325mg Tab) 650 mg PO Q6 [facility] Last Admin: 03/05/18 09:41 Dose: 650 mg Atenolol (Tenormin) 50 mg PO DAILY [facility] Last Admin: 03/05/18 09:40 Dose: 50 mg Atorvastatin Calcium (Lipitor) 80 mg PO DAILY [facility] Last Admin: 03/05/18 09:40 Dose: 80 mg Calcium Carbonate (Oscal) 500 mg PO DAILY [facility] Last Admin: 03/05/18 09:40 Dose: 500 mg Cholecalciferol (Vitamin D) 2,000 intlu PO DAILY [facility] Last Admin: 03/05/18 09:43 Dose: 2,000 intlu Docusate Sodium (Colace) 100 mg PO BID [facility] Last Admin: 03/05/18 09:39 Dose: 100 mg Ferrous Sulfate (Feosol) 325 mg PO BID [facility] Last Admin: 03/05/18 09:39 Dose: 325 mg Hydromorphone HCl (Dilaudid) 0.5 mg IVP Q4 PRN PRN Reason: Pain, severe (8-10) Last Admin: 03/04/18 04:38 Dose: 0.5 mg Lactated Ringer's (Lactated Ringer's) 1,000 mls @ 50 mls/hr IV .Q20H [facility] Losartan Potassium (Cozaar) 100 mg PO DAILY [facility] Last Admin: 03/03/18 19:25 Dose: 100 mg Mupirocin (Bactroban Ointment) 1 applic TOP BID [facility] Last Admin: 03/05/18 09:39 Dose: 1 applic Ondansetron HCl (Zofran Inj) 4 mg IVP Q6 PRN PRN Reason: Nausea/Vomiting Tramadol HCl (Ultram) 50 mg PO Q6 PRN PRN Reason: Pain, Mild (1-3) Last Admin: 03/05/18 09:41 Dose: 50 mg - Labs Labs: 03/05/18 05:40 03/05/18 05:40 PT 11.0 Seconds (9.8-13.1) 03/03/18 14:30 INR 1.0 03/03/18 14:30 APTT 21.1 Seconds (25.6-37.1) L 03/03/18 14:30 - Constitutional Appears: Non-toxic, No Acute Distress - Head Exam Head Exam: ATRAUMATIC, NORMOCEPHALIC - Eye Exam Eye Exam: EOMI, Normal appearance, PERRL - ENT Exam ENT Exam: Mucous Membranes Moist, Normal Oropharynx - Respiratory Exam Respiratory Exam: Clear to Ausculation Bilateral, NORMAL BREATHING PATTERN - Cardiovascular Exam Cardiovascular Exam: RRR, +S1, +S2 - GI/Abdominal Exam GI & Abdominal Exam: Soft, Normal Bowel Sounds - Extremities Exam Extremities Exam: Normal Capillary Refill, Normal Inspection - Neurological Exam Neurological Exam: Alert, Awake - Psychiatric Exam Psychiatric exam: Normal Affect, Normal Mood - Skin Skin Exam: Dry, Warm Assessment and Plan - Assessment and Plan (Free Text) Plan: 67 female PMH HTN, HLD and Osteoarthritis who presented to the ED with worsening sharp severe pain in the right shoulder 2/2 fracture after fall. Xray of the Humerus : Acute comminuted displaced fracture in the midshaft of the humerus (1) Periprosthetic fracture around internal prosthetic right shoulder joint S/P ORIF (open reduction internal fixation) fracture, Right Status post Revision total shoulder arthroplasty, Right Status: Acute Pt doing well post op Ortho : DR Tom Pain controlled Hemovac in place Shoulder immobilizer on Pain mgt PT/OT consult awaiting placemenr (2) Chronic disease anemia Status: Chronic Pt has hx of chronic anemia - baseline Hgb = 9.3 , pt was transfused in the OR hgb now 10.8 post transfusion (3) HTN (hypertension) Status: Acute Pt on Losartan and Atenolol at home will monitor BP cont Atenolol for now, hold Losartan as BP low normal (4) Hyperlipidemia Status: Chronic cont statin 5. Knee Abrasions ( present on admission) local wound care with Bactroban DVT proph -SCD for now- we will defer to Ortho
[2018-03-06 08:03] LABS: BLOOD UREA NITROGEN 10 mg/dl (7-17); CALCIUM 7.8 mg/dL (8.4-10.2); GFR AFRICAN-AMERICAN > 60; GFR NON-AFRICAN AMERICAN > 60
--- NOTE | 2018-03-06 09:40 | CP.PCM.PN ---
Subjective - Date & Time of Evaluation Date of Evaluation: 03/06/18 Time of Evaluation: 09:00 - Subjective Subjective: NO CHEST PAIN OR SOB Objective - Vital Signs/Intake and Output Vital Signs (last 24 hours): Temp Pulse Resp BP Pulse Ox 98.5 F 85 20 114/71 99 03/06/18 08:05 03/06/18 08:05 03/06/18 08:05 03/06/18 08:05 03/06/18 08:05 - Medications Medications: Current Medications Acetaminophen (Tylenol 325mg Tab) 650 mg PO Q6 [facility] Last Admin: 03/06/18 04:00 Dose: Not Given Atenolol (Tenormin) 50 mg PO DAILY [facility] Last Admin: 03/05/18 09:40 Dose: 50 mg Atorvastatin Calcium (Lipitor) 80 mg PO DAILY [facility] Last Admin: 03/05/18 09:40 Dose: 80 mg Calcium Carbonate (Oscal) 500 mg PO DAILY [facility] Last Admin: 03/05/18 09:40 Dose: 500 mg Cholecalciferol (Vitamin D) 2,000 intlu PO DAILY [facility] Last Admin: 03/05/18 09:43 Dose: 2,000 intlu Docusate Sodium (Colace) 100 mg PO BID [facility] Last Admin: 03/05/18 16:29 Dose: 100 mg Ferrous Sulfate (Feosol) 325 mg PO BID [facility] Last Admin: 03/05/18 16:29 Dose: 325 mg Hydromorphone HCl (Dilaudid) 0.5 mg IVP Q4 PRN PRN Reason: Pain, severe (8-10) Last Admin: 03/04/18 04:38 Dose: 0.5 mg Lactated Ringer's (Lactated Ringer's) 1,000 mls @ 50 mls/hr IV .Q20H [facility] Losartan Potassium (Cozaar) 100 mg PO DAILY [facility] Last Admin: 03/03/18 19:25 Dose: 100 mg Mupirocin (Bactroban Ointment) 1 applic TOP BID [facility] Last Admin: 03/05/18 16:30 Dose: 1 applic Ondansetron HCl (Zofran Inj) 4 mg IVP Q6 PRN PRN Reason: Nausea/Vomiting - Labs Labs: 03/05/18 05:40 03/06/18 05:30 PT 11.0 Seconds (9.8-13.1) 03/03/18 14:30 INR 1.0 03/03/18 14:30 APTT 21.1 Seconds (25.6-37.1) L 03/03/18 14:30 - Respiratory Exam Respiratory Exam: Clear to Ausculation Bilateral - Cardiovascular Exam Cardiovascular Exam: +S1, +S2 Assessment and Plan - Assessment and Plan (Free Text) Assessment: S/P FALL WITH RIGHT SHOULDER FRACTURE AND SURGICAL REPAIR HYPERTENSION HYPERLIPIDEMIA Plan: FOR REHAB
[2018-03-06] MEDS: Mupirocin 2% Oint 1GM UD TOP SCH (09:42)
[2018-03-06] MEDS: Cholecalciferol 1,000 INTLU TAB PO SCH (09:46)
--- NOTE | 2018-03-06 09:51 | CP.PCM.PN ---
Subjective - Date & Time of Evaluation Date of Evaluation: 03/06/18 Time of Evaluation: 09:00 - Subjective Subjective: Patient seen and examined OOB ambulating with PT. Pain improved since yesterday , well controlled. No new complaints. Objective - Vital Signs/Intake and Output Vital Signs (last 24 hours): Temp Pulse Resp BP Pulse Ox 98.5 F 85 20 114/71 99 03/06/18 08:05 03/06/18 08:05 03/06/18 08:05 03/06/18 08:05 03/06/18 08:05 - Medications Medications: Current Medications Acetaminophen (Tylenol 325mg Tab) 650 mg PO Q6 [facility] Last Admin: 03/06/18 04:00 Dose: Not Given Atenolol (Tenormin) 50 mg PO DAILY [facility] Last Admin: 03/05/18 09:40 Dose: 50 mg Atorvastatin Calcium (Lipitor) 80 mg PO DAILY [facility] Last Admin: 03/05/18 09:40 Dose: 80 mg Calcium Carbonate (Oscal) 500 mg PO DAILY [facility] Last Admin: 03/05/18 09:40 Dose: 500 mg Cholecalciferol (Vitamin D) 2,000 intlu PO DAILY [facility] Last Admin: 03/05/18 09:43 Dose: 2,000 intlu Docusate Sodium (Colace) 100 mg PO BID [facility] Last Admin: 03/05/18 16:29 Dose: 100 mg Ferrous Sulfate (Feosol) 325 mg PO BID [facility] Last Admin: 03/05/18 16:29 Dose: 325 mg Hydromorphone HCl (Dilaudid) 0.5 mg IVP Q4 PRN PRN Reason: Pain, severe (8-10) Last Admin: 03/04/18 04:38 Dose: 0.5 mg Lactated Ringer's (Lactated Ringer's) 1,000 mls @ 50 mls/hr IV .Q20H [facility] Losartan Potassium (Cozaar) 100 mg PO DAILY [facility] Last Admin: 03/03/18 19:25 Dose: 100 mg Mupirocin (Bactroban Ointment) 1 applic TOP BID [facility] Last Admin: 03/05/18 16:30 Dose: 1 applic Ondansetron HCl (Zofran Inj) 4 mg IVP Q6 PRN PRN Reason: Nausea/Vomiting - Labs Labs: 03/05/18 05:40 03/06/18 05:30 PT 11.0 Seconds (9.8-13.1) 03/03/18 14:30 INR 1.0 03/03/18 14:30 APTT 21.1 Seconds (25.6-37.1) L 03/03/18 14:30 - Extremities Exam Additional comments: RUE: shoulder immobilizer in place, Dressings CDI sensation intact AXN/MN/UN/RN motor intact MN/UN/RN radial pulse intact Assessment and Plan (1) Fracture of humerus, right, closed Assessment & Plan: POD #3 s/p right revision reverse TSR and ORIF humerus fx -pain controlled -PT/OT, NWB RUE, keep immobilized in brace -OOB with assistance -orthopedically stable for discharge to rehab vs TCU. Insurance denying transfer to tertiary care unit/rehab. Appeal/peer to peer in progress. Highly recommend d/c to rehab vs TCU due to patient's history of multiple falls and her living at home alone. This will prevent further injuries until she is stronger and more independent. -above d/w Dr. Tom in agreement Status: Acute
--- NOTE | 2018-03-06 12:41 | CP.PCM.DIS ---
Provider - Provider Date of Admission: 03/04/18 14:37 Attending physician: Simin Coombs DO Time Spent in preparation of Discharge (in minutes): 30 Hospital Course - Lab Results Lab Results: Micro Results 03/03/18 14:00 Shoulder - Right Gram Stain - Final 03/03/18 14:00 Shoulder - Right Wound Culture - Preliminary No growth. 03/03/18 14:00 Shoulder - Right Gram Stain - Final 03/03/18 14:00 Shoulder - Right Wound Culture - Preliminary No growth. 03/03/18 14:00 Shoulder - Right Gram Stain - Final 03/03/18 14:00 Shoulder - Right Wound Culture - Preliminary No growth. 03/03/18 14:00 Shoulder - Right Gram Stain - Final 03/03/18 14:00 Shoulder - Right Wound Culture - Preliminary No growth. 03/03/18 14:00 Shoulder - Right Gram Stain - Final 03/03/18 14:00 Shoulder - Right Wound Culture - Preliminary No growth. 03/03/18 14:00 Shoulder - Right Gram Stain - Final 03/03/18 14:00 Shoulder - Right Wound Culture - Preliminary No growth. 03/03/18 14:00 Shoulder - Right Gram Stain - Final 03/03/18 14:00 Shoulder - Right Wound Culture - Preliminary No growth. 03/03/18 14:00 Shoulder - Right Gram Stain - Final 03/03/18 14:00 Shoulder - Right Wound Culture - Preliminary No growth. 03/03/18 10:45 Body Fluid - Shoulder-Right Gram Stain - Final 03/03/18 10:45 Body Fluid - Shoulder-Right Anaerobic Culture - Final NO ANAEROBES ISOLATED. 03/03/18 10:45 Body Fluid - Shoulder-Right Body Fluid Culture - Preliminary NO GROWTH AFTER 3 DAYS 03/03/18 10:45 Other: Please Indicate Mycobacterial Culture - Preliminary Most Recent Lab Values WBC 15.7 K/uL (4.8-10.8) H 03/05/18 05:40 RBC 3.07 Mil/uL (3.80-5.20) L 03/05/18 05:40 Hgb 9.5 g/dL (12.0-16.0) L 03/05/18 05:40 Hct 28.6 % (34.0-47.0) L 03/05/18 05:40 MCV 93.3 fl (81.0-99.0) 03/05/18 05:40 MCH 30.9 pg (27.0-31.0) 03/05/18 05:40 MCHC 33.1 g/dL (33.0-37.0) 03/05/18 05:40 RDW 15.2 % (11.5-14.5) H 03/05/18 05:40 Plt Count 232 K/uL (130-400) 03/05/18 05:40 MPV 7.9 fl (7.2-11.7) 03/02/18 21:04 Neut % (Auto) 60.7 % (50.0-75.0) 03/02/18 21:04 Lymph % (Auto) 27.2 % (20.0-40.0) 03/02/18 21:04 [place] % (Auto) 8.9 % (0.0-10.0) 03/02/18 21:04 Eos % (Auto) 2.4 % (0.0-4.0) 03/02/18 21:04 Baso % (Auto) 0.8 % (0.0-2.0) 03/02/18 21:04 Neut # (Auto) 7.9 K/uL (1.8-7.0) H 03/02/18 21:04 Lymph # (Auto) 3.5 K/uL (1.0-4.3) 03/02/18 21:04 [place] # (Auto) 1.2 K/uL (0.0-0.8) H 03/02/18 21:04 Eos # (Auto) 0.3 K/uL (0.0-0.7) 03/02/18 21:04 Baso # (Auto) 0.1 K/uL (0.0-0.2) 03/02/18 21:04 PT 11.0 Seconds (9.8-13.1) 03/03/18 14:30 INR 1.0 03/03/18 14:30 APTT 21.1 Seconds (25.6-37.1) L 03/03/18 14:30 Sodium 137 mmol/l (132-148) 03/06/18 05:30 Potassium 4.7 MMOL/L (3.6-5.0) 03/06/18 05:30 Chloride 106 mmol/L (98-107) 03/06/18 05:30 Carbon Dioxide 24 mmol/L (22-30) 03/06/18 05:30 Anion Gap 12 (10-20) 03/06/18 05:30 BUN 10 mg/dl (7-17) 03/06/18 05:30 Creatinine 0.7 mg/dl (0.7-1.2) 03/06/18 05:30 Est GFR ( Amer) > 60 03/06/18 05:30 Est GFR (Non-Af Amer) > 60 03/06/18 05:30 Random Glucose 87 mg/dL (65-105) 03/06/18 05:30 Calcium 7.8 mg/dL (8.4-10.2) L 03/06/18 05:30 Troponin I < 0.0120 ng/mL (0.00-0.120) 03/02/18 21:04 25-OH Vitamin D Total 17.9 NG/ML (30.0-100.0) L 03/04/18 05:40 Urine Color [place] (YELLOW) 03/03/18 04:00 Urine Clarity Slighty-cloudy (Clear) 03/03/18 04:00 Urine pH 5.0 (5.0-8.0) 03/03/18 04:00 Ur Specific [place] 1.018 (1.003-1.030) 03/03/18 04:00 Urine Protein Negative mg/dL (NEGATIVE) 03/03/18 04:00 Urine Glucose (UA) Neg mg/dL (Normal) 03/03/18 04:00 Urine Ketones Negative mg/dL (NEGATIVE) 03/03/18 04:00 Urine Blood Negative (NEGATIVE) 03/03/18 04:00 Urine Nitrate Negative (NEGATIVE) 03/03/18 04:00 Urine Bilirubin Negative (NEGATIVE) 03/03/18 04:00 Urine Urobilinogen 0.2-1.0 mg/dL (0.2-1.0) 03/03/18 04:00 Ur Leukocyte Esterase Neg Bud/uL (Negative) 03/03/18 04:00 Urine RBC (Auto) 1 /hpf (0-3) 03/03/18 04:00 Urine Microscopic WBC 4 /hpf (0-5) 03/03/18 04:00 Ur Squamous Epith Cells 2 /hpf (0-5) 03/03/18 04:00 Fluid Type Synovial fluid 03/03/18 10:45 Synovial WBC 14.0 /mm3 (0.0-150.0) 03/03/18 10:45 Synovial RBC 38062.0 /mm3 (0.0-0.0) H 03/03/18 10:45 Synovial Neutrophils 31.0 % (0-0) H 03/03/18 10:45 Synovial Lymphocytes 16.0 % (0-0) H 03/03/18 10:45 Synov Monos/Macrophage 3 % (0-0) H 03/03/18 10:45 Synovial Fluid Comment Bloody 03/03/18 10:45 Blood Type O POSITIVE 03/03/18 08:17 Antibody Screen Negative 03/03/18 08:17 Crossmatch See Detail 03/03/18 08:17 BBK History Checked Patient has bt 03/03/18 08:17 - Hospital Course Hospital Course: 67 female PMH HTN, HLD and Osteoarthritis who presented to the ED with worsening sharp severe pain in the right shoulder 2/2 fracture after fall. Xray of the Humerus : Acute comminuted displaced fracture in the midshaft of the humerus. S/P ORIF, stable for discharge to SNF. Follow up PCP and ortho in one week. (1) Periprosthetic fracture around internal prosthetic right shoulder joint S/P ORIF (open reduction internal fixation) fracture, Right Status post Revision total shoulder arthroplasty, Right Status: Acute Pt doing well post op Ortho : DR Tom Pain controlled Hemovac in place Shoulder immobilizer on Pain mgt PT/OT consult awaiting placemenr (2) Chronic disease anemia Status: Chronic Pt has hx of chronic anemia - baseline Hgb = 9.3 , pt was transfused in the OR hgb now 10.8 post transfusion (3) HTN (hypertension) Status: Acute Pt on Losartan and Atenolol at home will monitor BP cont Atenolol for now, hold Losartan as BP low normal (4) Hyperlipidemia Status: Chronic cont statin 5. Knee Abrasions ( present on admission) local wound care with Bactroban DVT proph -SCD for now- we will defer to Ortho Discharge Exam - Head Exam Additional comments: Vitals Reviewed GEN: WDWN, alert, cooperative HEENT: NCAT, PERRL, EOMI HEART: RRR, +S1S2, NO MRG LUNG: CTAB, NO WRR ABD: soft, NT, ND, No HSM, No masses EXT: normal pedal pulses NEURO: awake, alert SKIN: warm, dry PSYCH: normal mood, normal affect Discharge Plan - Follow Up Plan Condition: FAIR Disposition: TRANSF TO SNF Instructions: Open Reduction and Internal Fixation Surgery (DC), Upper Arm Fracture, Hypertension (DC), Hypertension (GEN) Referrals: Daniel Tom III, MD [Family Provider] -
[2018-03-06 16:54] VITALS: BP 97/61; PULSE 75; RESP 18; TEMP 97.8; O2SAT 100
== END 2018-03-06 22:15 | DRG 493 ==
LOC: H.ER 19:39 → H.ERHOLD 20:43 → H.MEDSURG1 22:30 → OBSVTOIN 03-04 14:37 → H.MEDSURG1 03-05 18:06
PROVIDERS: ADMIT Student in an Organized Health Care Education/Training Program; ATTEND Student in an Organized Health Care Education/Training Program
PROC: 01N60ZZ Release Radial Nerve, Open Approach (ICD-10-PCS; 2018-03-03)
PROC: 01U607Z Supplement Radial Nerve with Autologous Tissue Substitute, Open Approach (ICD-10-PCS; 2018-03-03)
PROC: 3E0T3BZ Introduction of Anesthetic Agent into Peripheral Nerves and Plexi, Percutaneous Approach (ICD-10-PCS; 2018-03-03)
PROC: 3E0T33Z Introduction of Anti-inflammatory into Peripheral Nerves and Plexi, Percutaneous Approach (ICD-10-PCS; 2018-03-03)
PROC: 30233K1 Transfusion of Nonautologous Frozen Plasma into Peripheral Vein, Percutaneous Approach (ICD-10-PCS; 2018-03-03)
PROC: 30233N1 Transfusion of Nonautologous Red Blood Cells into Peripheral Vein, Percutaneous Approach (ICD-10-PCS; 2018-03-03)
PROC: 0PSF04Z Reposition Right Humeral Shaft with Internal Fixation Device, Open Approach (ICD-10-PCS; principal; 2018-03-03 09:00)
PROC: 0RPJ0JZ Removal of Synthetic Substitute from Right Shoulder Joint, Open Approach (ICD-10-PCS; 2018-03-03 09:00)
DX: M97.31XA Periprosthetic fracture around internal prosthetic right shoulder joint, initial encounter (principal); S42.391A Other fracture of shaft of right humerus, initial encounter for closed fracture; S80.211A Abrasion, right knee, initial encounter; D63.8 Anemia in other chronic diseases classified elsewhere; M17.11 Unilateral primary osteoarthritis, right knee; M81.0 Age-related osteoporosis without current pathological fracture; I10 Essential (primary) hypertension; E78.5 Hyperlipidemia, unspecified; E78.00 Pure hypercholesterolemia, unspecified; Z96.611 Presence of right artificial shoulder joint; Z96.651 Presence of right artificial knee joint; W18.30XA Fall on same level, unspecified, initial encounter; Z87.891 Personal history of nicotine dependence; Y92.89 Other specified places as the place of occurrence of the external cause

== ENCOUNTER 2018-07-09 06:33 | Day surgery (SDC) | payer MEDICARE ==
[2018-07-09 07:10] VITALS: BMI 32.4
--- NOTE | 2018-07-09 07:33 | CP.PCM.CON ---
History of Present Illness - History of Present Illness History of Present Illness: Orthopedic consult: Dr. Tom Patient a 67 y/o female s/p right shoulder periprosthetic fracture and revision TSA 03/03/2018 complains of right shoulder pain. She had removed sling and reached arm overhead. She was seen in the office of Dr. Tom and found to have dislocation and is scheduled for OR today for closed reduction, possible open, possible revision. She denies numbness/tingling. She denies CP/SOB/N/V/D/fever/dysuria/melena. Review of Systems - Review of Systems All systems: reviewed and no additional remarkable complaints except Review of Systems: as per HPI Past Patient History - Infectious Disease Hx of Infectious Diseases: None - Tetanus Immunizations Tetanus Immunization: Unknown - Past Medical History & Family History Past Medical History?: Yes Past Family History: Reviewed and not pertinent - Past Social History Smoking Status: Never Smoked Alcohol: Occasional Drugs: Denies - CARDIAC Hx Cardiac Disorders: Yes Hx Congestive Heart Failure: No Hx Hypercholesterolemia: Yes Hx Hypertension: Yes - PULMONARY Hx Respiratory Disorders: No Hx Chronic Obstructive Pulmonary Disease (COPD): No - NEUROLOGICAL Hx Neurological Disorder: No HX Cerebrovascular Accident: No - HEENT Hx HEENT Problems: No - RENAL Hx Chronic Kidney Disease: No Hx Renal Failure: No Other/Comment: kidney level function was low - ENDOCRINE/METABOLIC Hx Endocrine Disorders: No Hx Diabetes Mellitus Type 1: No Hx Diabetes Mellitus Type 2: No Hx Hypothyroidism: No - HEMATOLOGICAL/ONCOLOGICAL Hx Blood Disorders: No Hx AIDS: No Hx Anemia: Yes Hx Blood Transfusions: No Hx Human Immunodeficiency Virus (HIV): No - INTEGUMENTARY Hx Dermatological Problems: No - MUSCULOSKELETAL/RHEUMATOLOGICAL Hx Musculoskeletal Disorders: Yes Hx Arthritis: Yes (right knee) Hx Falls: Yes Hx Osteoporosis: Yes Hx Rheumatoid Arthritis: No Hx Unsteady Gait: No - GASTROINTESTINAL Hx Gastrointestinal Disorders: No - GENITOURINARY/GYNECOLOGICAL Hx Genitourinary Disorders: No - PSYCHIATRIC Hx Psychophysiologic Disorder: No Hx Emotional Abuse: No Hx Physical Abuse: No Hx Substance Use: No - SURGICAL HISTORY Hx Surgeries: Yes Hx Joint Replacement: Yes (RIGHT SHOULDER 11/07/14; RIGHT KNEE 11/12/16) Hx Orthopedic Surgery: Yes (R knee replacement- ) Other/Comment: fx right shoulder. left shoulder replacement - ANESTHESIA Hx Anesthesia: Yes Hx Anesthesia Reactions: No Hx Malignant Hyperthermia: No Meds Home Medications: Home Medication List Medication Instructions Recorded Confirmed Type oxyCODONE/Acetaminophen [Percocet 1 - 2 ea PO Q4 PRN #30 tab 07/09/18 Rx 5/325 mg Tab] Allergies/Adverse Reactions: Allergies Allergy/AdvReac Type Severity Reaction Status Date / Time No Known Allergies Allergy Verified 07/09/18 07:10 - Medications Medications: as per med Rec Physical Exam - Constitutional Appears: Well, No Acute Distress - Head Exam Head Exam: ATRAUMATIC, NORMOCEPHALIC - Eye Exam Eye Exam: EOMI, Normal appearance, PERRL - ENT Exam ENT Exam: Mucous Membranes Moist - Respiratory Exam Respiratory Exam: NORMAL BREATHING PATTERN - Cardiovascular Exam Cardiovascular Exam: +S1, +S2 - GI/Abdominal Exam GI & Abdominal Exam: Soft. absent: Tenderness - Extremities Exam Additional comments: R shoulder: Incision well healed +sulcus sign diffuse tenderness no masses/lesions/erythema sensation and motor intact AXN/MN/UN/RN radial pulse intact Results - Vital Signs Recent Vital Signs: Last Vital Signs Temp 97.6 F 07/09/18 07:13 Pulse 54 L 07/09/18 07:13 Resp 18 07/09/18 07:13 BP 130/72 07/09/18 07:13 Pulse Ox 99 07/09/18 07:13 - Labs Result Diagrams: 07/09/18 07:20 07/09/18 07:20 Assessment & Plan (1) Dislocation of prosthetic joint of shoulder Assessment and Plan: -OR today for right shoulder prosthesis closed reduction vs. open reduction vs. revision TSR -Risks/benefits/alternatives were explained to patient who understands and agrees to proceed with above -NPO -above d/w Dr. Tom in agreement Status: Acute
--- NOTE | 2018-07-09 07:45 | CP.PCM.HP ---
<Case Moreno - Last Filed: 07/09/18 07:53> History of Present Illness - History of Present Illness History of Present Illness: 67F with pmhx of HLD, HTN, chronic renal insufficiency stage III, obesity, rhinitis, and osteoarthritis seen and evaluated in [facility] preoperatively for revision of reverse right shoulder replacement. Patient is scheduled for OR today for right shoulder surgery. Denies any numbness or tingling of right shoulder. Denies any chest pain, dypsnea, abdominal pain, nausea, vomiting, dysuria, fever, chills. Denies eating or drinking anything today. Patient admits to taking baby aspirin regularly, however has not taken it in the last two weeks. PMHx: HLD, HTN, chronic renal insufficiency stage III, obesity, rhinitis, and osteoarthritis PSHx: right shoulder replacement(feb 2018), left shoulder surgery, TKR, L shoulder replacement medications: vitamins, atenolol, aspirin 81 mg FH: mother, alive SH: former smoker (quit 20 years ago), denies alcohol consumption or drug use All: NKDA Present on Admission - Present on Admission Any Indicators Present on Admission: No Past Patient History - Infectious Disease Hx of Infectious Diseases: None - Tetanus Immunizations Tetanus Immunization: Unknown - Past Medical History & Family History Past Medical History?: Yes - Past Social History Smoking Status: Never Smoked - CARDIAC Hx Cardiac Disorders: Yes Hx Congestive Heart Failure: No Hx Hypercholesterolemia: Yes Hx Hypertension: Yes - PULMONARY Hx Respiratory Disorders: No Hx Chronic Obstructive Pulmonary Disease (COPD): No - NEUROLOGICAL Hx Neurological Disorder: No HX Cerebrovascular Accident: No - HEENT Hx HEENT Problems: No - RENAL Hx Chronic Kidney Disease: No Hx Renal Failure: No Other/Comment: kidney level function was low - ENDOCRINE/METABOLIC Hx Endocrine Disorders: No Hx Diabetes Mellitus Type 1: No Hx Diabetes Mellitus Type 2: No Hx Hypothyroidism: No - HEMATOLOGICAL/ONCOLOGICAL Hx Blood Disorders: No Hx AIDS: No Hx Anemia: Yes Hx Blood Transfusions: No Hx Human Immunodeficiency Virus (HIV): No - INTEGUMENTARY Hx Dermatological Problems: No - MUSCULOSKELETAL/RHEUMATOLOGICAL Hx Musculoskeletal Disorders: Yes Hx Arthritis: Yes (right knee) Hx Falls: Yes Hx Osteoporosis: Yes Hx Rheumatoid Arthritis: No Hx Unsteady Gait: No - GASTROINTESTINAL Hx Gastrointestinal Disorders: No - GENITOURINARY/GYNECOLOGICAL Hx Genitourinary Disorders: No - PSYCHIATRIC Hx Psychophysiologic Disorder: No Hx Emotional Abuse: No Hx Physical Abuse: No Hx Substance Use: No - SURGICAL HISTORY Hx Surgeries: Yes Hx Joint Replacement: Yes (RIGHT SHOULDER 11/07/14; RIGHT KNEE 11/12/16) Hx Orthopedic Surgery: Yes (R knee replacement- ) Other/Comment: fx right shoulder. left shoulder replacement - ANESTHESIA Hx Anesthesia: Yes Hx Anesthesia Reactions: No Hx Malignant Hyperthermia: No Meds Allergies/Adverse Reactions: Allergies Allergy/AdvReac Type Severity Reaction Status Date / Time No Known Allergies Allergy Verified 07/09/18 07:10 Physical Exam - Constitutional Appears: Well, Non-toxic, No Acute Distress - Head Exam Head Exam: ATRAUMATIC, NORMOCEPHALIC - Eye Exam Eye Exam: EOMI, Normal appearance, PERRL Pupil Exam: NORMAL ACCOMODATION, PERRL - ENT Exam ENT Exam: Mucous Membranes Moist, Normal Exam - Neck Exam Neck exam: Positive for: Normal Inspection - Respiratory Exam Respiratory Exam: Clear to Auscultation Bilateral, NORMAL BREATHING PATTERN - Cardiovascular Exam Cardiovascular Exam: REGULAR RHYTHM, +S1, +S2 - GI/Abdominal Exam GI & Abdominal Exam: Normal Bowel Sounds - Extremities Exam Extremities exam: Positive for: normal inspection. Negative for: pedal edema - Back Exam Back exam: NORMAL INSPECTION Results - Vital Signs Recent Vital Signs: Last Vital Signs Temp 97.6 F 07/09/18 07:13 Pulse 54 L 07/09/18 07:13 Resp 18 07/09/18 07:13 BP 130/72 07/09/18 07:13 Pulse Ox 99 07/09/18 07:13 Assessment & Plan - Assessment and Plan (Free Text) Assessment: 67 yo female with PMHx of HTN, HLD and Osteoarthritis, s/p right shoulder periposthetic fracture and revision of total shoulder arthroplasty on 03/03/18 has dislocated right shoulder and admitted to same day surgery for rev isional right shoulder surgery Plan: (1) Right dislocated shoulder -S/P right ORIF (open reduction internal fixation) fracture on 03/03/18 -S/P right Revision total shoulder arthroplasty on 03/03/18 - medical clearance on file; Dr. Musa. Patient is medically optimized for a moderate risk surgery - Maintain NPO, resume diet post operatively - Ortho consulted; Dr. Tom- [facility] - reviewed WNL (2) Mild Transaminitis - Monitor liver enzymes (3) Hypertension,Chronic -Pt on Atenolol at home -Pt took her BP meds this morning -will monitor BP (4) Hyperlipidemia -cont statin (5) DVT proph -SCD for now- we will defer to Ortho - Date & Time Date: 07/09/18 Time: 07:56 <[email or web address] - Last Filed: 07/09/18 15:43> Results - Vital Signs Recent Vital Signs: Last Vital Signs Temp 96.6 F L 07/09/18 14:40 Pulse 55 L 07/09/18 14:40 Resp 18 07/09/18 14:40 BP 129/74 07/09/18 14:40 Pulse Ox 99 07/09/18 14:40 - Labs Result Diagrams: 07/09/18 07:20 07/09/18 07:20 Labs: Laboratory Results - last 24 hr 07/09/18 07/09/18 07/09/18 07:20 07:20 07:20 WBC 9.8 RBC 3.84 Hgb 12.0 Hct 36.3 MCV 94.5 MCH 31.1 H MCHC 32.9 L RDW 16.3 H Plt Count 304 MPV 8.9 Neut % (Auto) 54.2 Lymph % (Auto) 32.2 [place] % (Auto) 7.3 Eos % (Auto) 5.3 H Baso % (Auto) 1.0 Neut # (Auto) 5.3 Lymph # (Auto) 3.2 [place] # (Auto) 0.7 Eos # (Auto) 0.5 Baso # (Auto) 0.1 Sodium 143 Potassium 4.4 Chloride 106 Carbon Dioxide 28 Anion Gap 13 BUN 21 H Creatinine 1.0 Est GFR ( Amer) > 60 Est GFR (Non-Af Amer) 55 Random Glucose 97 Calcium 9.4 Total Bilirubin Direct Bilirubin AST ALT Alkaline Phosphatase Total Protein Albumin Globulin Albumin/Globulin Ratio Fluid Type Synovial WBC Synovial RBC Synovial Neutrophils Synovial Lymphocytes Synov Monos/Macrophage Synovial Fluid Comment Blood Type O POSITIVE Antibody Screen Negative Crossmatch See Detail BBK History Checked Patient has bt 07/09/18 07/09/18 07:20 12:48 WBC RBC Hgb Hct MCV MCH MCHC RDW Plt Count MPV Neut % (Auto) Lymph % (Auto) [place] % (Auto) Eos % (Auto) Baso % (Auto) Neut # (Auto) Lymph # (Auto) [place] # (Auto) Eos # (Auto) Baso # (Auto) Sodium Potassium Chloride Carbon Dioxide Anion Gap BUN Creatinine Est GFR ( Amer) Est GFR (Non-Af Amer) Random Glucose Calcium Total Bilirubin 0.2 Direct Bilirubin 0.1 AST 109 H ALT 190 H D Alkaline Phosphatase 190 H D Total Protein 7.1 Albumin 4.0 Globulin 3.1 Albumin/Globulin Ratio 1.3 Fluid Type Synovial fluid Synovial WBC 81.0 Synovial RBC 90153.0 H Synovial Neutrophils 70.0 H Synovial Lymphocytes 24.0 H Synov Monos/Macrophage 6 H Synovial Fluid Comment Cloudy Blood Type Antibody Screen Crossmatch BBK History Checked Attending/Attestation - Attestation I have personally seen and examined this patient.: Yes I have fully participated in the care of the patient.: Yes I have reviewed all pertinent clinical information: Yes
[2018-07-09 08:04] LABS: BASO # 0.1 K/uL (0.0-0.2); EOS # 0.5 K/uL (0.0-0.7); EOS % 5.3 % (0.0-4.0); LYMPH # 3.2 K/uL (1.0-4.3); LYMPH % 32.2 % (20.0-40.0); MEAN CELL VOLUME 94.5 fl (81.0-99.0); MEAN CORPUSCULAR HEMOGLOBIN 31.1 pg (27.0-31.0); MEAN CORPUSCULAR HGB CONC 32.9 g/dL (33.0-37.0); MEAN PLATELET VOLUME 8.9 fl (7.2-11.7); MONO # 0.7 K/uL (0.0-0.8); MONO % 7.3 % (0.0-10.0); NEUT # 5.3 K/uL (1.8-7.0); NEUT % 54.2 % (50.0-75.0); NRBC % 0.1 % (0.0-0.0); RBC 3.84 Mil/uL (3.80-5.20); RED CELL DISTRIBUTION WIDTH 16.3 % (11.5-14.5); WHITE BLOOD COUNT 9.8 K/uL (4.8-10.8)
[2018-07-09 08:18] LABS: BLOOD UREA NITROGEN 21 mg/dl (7-17); CALCIUM 9.4 mg/dL (8.4-10.2); GFR NON-AFRICAN AMERICAN 55
[2018-07-09 08:27] LABS: ALB/GLOB RATIO 1.3 (1.0-2.1); BILIRUBIN,DIRECT 0.1 mg/ml (0.0-0.4)
[2018-07-09] MEDS ORDERED: Lactated Ringer's 1,000 ML IV ONE ×3 (09:30→13:56)
[2018-07-09] MEDS ORDERED: ceFAZolin IV 1 gm in Dextrose 2 GM/100 ML BAG IVPB ONE (09:37)
[2018-07-09] MEDS ORDERED: Bacitracin Ointment 30 GM TUBE ONE (09:37)
[2018-07-09] MEDS ORDERED: EPINEPHrine 1 mg/ml (1:1000) Inj ONE (10:37)
[2018-07-09] MEDS ORDERED: Rocuronium 10 mg/ml (5 ml) ONE ×2 (10:49→12:22)
[2018-07-09] MEDS ORDERED: Propofol 10 mg/ml Inj (20 ML) ONE (10:49)
[2018-07-09] MEDS ORDERED: Midazolam 2 MG/2 ML VIAL ONE (10:49)
[2018-07-09] MEDS ORDERED: Bupivacaine HCl 0.5% PF (30 ml) Inj ONE (10:56)
[2018-07-09] MEDS ORDERED: ePHEDrine 50 mg/ml Inj ONE (12:36)
[2018-07-09] MEDS ORDERED: Phenylephrine 10 mg/ml Inj ONE (12:36)
[2018-07-09 12:49] LABS: FLUID TYPE SYNOVIAL FLUID
[2018-07-09 13:13] LABS: SF GROSS APPEARANCE BLOODY (CLEAR); SYNOVIAL FLUID COMMENT CLOUDY
[2018-07-09] MEDS ORDERED: Neostigmine 1:1000 (1 mg/ml) Inj ONE (13:51)
[2018-07-09] MEDS ORDERED: Oxycodone/Acetaminophen 5/325 mg Tab PO PRN ×2 (13:52)
[2018-07-09] MEDS ORDERED: Lactated Ringer's 1,000 ML IV SCH ×2 (14:00→14:15)
--- NOTE | 2018-07-09 14:07 | PCM.ANESB1 ---
Interscalene Block - Brachial Plexus Date of Procedure: 07/09/18 Anesthesiologist: mayra Pre-Procedure Diagnosis: right shoulder dislocation Procedure Performed: Interscalene Block of Brachial Plexus Right - Procedure Interscalene Block of Brachial Plexus: This procedure was explained to the patient that it is for post-operative pain management. Consent was obtained after a thorough discussion with the patient regarding the benefits and possible complications of local anesthetic block of the Brachial Plexus at the Interscalene area. The patient was brought to the Operating Room and standard monitors were applied. Time out was held with the circulating nurse to confirm the correct surgery and appropriate block. After applying Oxygen by nasal cannula and administering IV Sedation, the patient's head was gently rotated away from the _right operative shoulder and the anterior scalene groove was carefully palpated. The ultrasound transducer was then applied to the skin in the transverse plane and the brachial plexus was visualized lateral to the carotid artery and in between the anterior and middle scalene muscles. After identification,the anterior lateral portion of the neck was prepped with Betadine solution three times and Lidocaine 1% was injected subcutaneously for topical analgesia. At this point, a # 22 gauge Stimuplex 2 inches insulated needle was inserted into the interscalene groove and directed in a caudal and midline direction. The needle was inserted lateral to the ultrasound transducer in-plane towards the brachial plexus in a [id number] direction. Needle advancement was performed carefully under direct ultrasound visualization. Nerve stimulator was used and twitched of the affected extremity including the hand brachialis muscles, biceps and the deltoid was obtained at a current of _0.3____MA. After repeated negative aspiration,__5___cc of___0.5__,_bupivacaine were injected and this was followed with __25___cc of _0.5____% ___Bupivacaine . Under ultrasound guidance the local anesthetics were observed surrounding the roots of the brachial plexus. The needle was removed intact and sterile dressing was applied. The patient had stable vital signs, was conscious and in no apparent distress. The patient tolerated the interscalene block of the bracheal plexus well with stable vital signs and was prepared for subsequent surgery.
[2018-07-09 14:42] LABS: SYNOVIAL FLUID MONO/MACROPHAGE 6 % (0-0)
--- NOTE | 2018-07-09 15:41 | RAD ---
Date of service: 07/09/2018 PROCEDURE: Radiographs of the Right Shoulder HISTORY: s/p R revision TSR COMPARISON: 03/31/2018 comparison is made with a 03/02/2018 study. FINDINGS: BONES: The mid humeral shaft butterfly fracture fragment without inferior bridging callus formation is again noted. Superior interval bridging callus formation of this per fracture fragment is possible. Grossly the cerclage wires here appear intact. The humeral stem prostatic component is revised since 03/02/2018. The humeral stem appearance and cerclage wires appear fairly similar with some different projections suggested at the humeral glenoid prosthetic components; comparing the current study with the prior 03/31/2018 images of it. Some ossific heterotopic bone over the proximal soft tissues of the right upper extremity is noted on the current study-not appreciated such on the prior study. The glenoid ascitic component appears grossly similar-projections are different. Skin sutures project over the superior aspect-more distally the prior skin sutures are no longer seen as such. JOINTS: As above SOFT TISSUES: As above OTHER FINDINGS: None. IMPRESSION: History of prior revision right shoulder arthroplasty-grossly the glenoid prosthetic component--is similar-this simulates a reverse arthroplasty type here. Correlate clinically The humeral stem alignment within the humeral intramedullary cavity is similar. The cerclage wires portions visualized appear intact as before. The butterfly fracture fragment of the mid humeral shaft is re-noted without inferior bridging callus formation is similar. There may be some more proximal bridging callus formation a in the interval. Proximal heterotopic soft ossification calcification is bleed present over the more proximal right humeral stem component. The slight changes in the humeral stem as it relates to the glenoid prostatic component may be due to differences in projection-for this clinical correlation is needed in terms of any interval changes here
[2018-07-09] MEDS ORDERED: Pneumococcal 23-Valent Vaccine IM ONE (16:00)
[2018-07-09] MEDS ORDERED: ceFAZolin IV 2 gm in Dextrose 2 GM/50 ML BAG IVPB SCH (17:00)
--- NOTE | 2018-07-09 19:02 | OP ---
PROCEDURE DATE: 07/09/2018 PREOPERATIVE DIAGNOSIS: Chronic dislocation of the right shoulder status post complex open reduction and internal fixation, periprosthetic humeral shaft fracture. POSTOPERATIVE DIAGNOSES: 1. 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 2. Rotator cuff rupture. 3. Foreign bodies, deep. OPERATIVE FINDINGS: As above. OPERATIVE PROCEDURES: 1. Complex revision of right shoulder replacement arthroplasty. 2. Removal of proximal humeral component. 3. Primary repair of rotator cuff. 4. Removal of foreign bodies, deep. 5. Excision of skin, subcutaneous tissue and some muscle. 6. Positioning of fluoroscope, interpretation of video images. SURGEON: Daniel Tom MD. SENIOR CORPORATE STRATEGY MANAGER: Renetta Angulo, Certified Registered Nursing Corporate Legal Manager. ANESTHESIA: General endotracheal anesthesia and scalene block anesthesia. COMPLICATIONS: No complications. DRAINS: No drains. OPERATIVE INDICATIONS: Mihaela Chase is a 67-year-old woman who in 02/2018 sustained a fall with a complex fracture dislocation around a successful right shoulder replacement arthroplasty. The patient was stabilized, was referred by the emergency room orthopedist as a former patient of mine. The patient was admitted, underwent successful ORIF of periprosthetic femur fracture with revision to a reverse shoulder arthroplasty. The patient did not follow postoperative directions and dislocated the arthroplasty. Since the complex humeral shaft fracture was not yet healed, the plan was for revision and open reduction at some point, but only after the humeral shaft healed manipulating the shoulder toward the unfortunately refracture of the humerus. Pros, cons, risks and benefits of the revision approach were discussed with the patient and through her culturally competent son, David preoperatively in the holding area with the formal linguistic perinatal coordinator. The possibility of mechanical failure, recurrent dislocation, infection, thromboembolic disease, nerve injury, secondary or tertiary surgery were discussed. The patient can no longer withstand the discomfort and wished the surgery to be accomplished. OPERATIVE PROCEDURE: After having obtained informed consent in the above fashion on several occasions, after having identified the side, site and procedure and a critical pause/time-out, after the satisfactory induction of the anesthetic, the patient identified as Mihaela Chase in the modified norton chair position. The right upper extremity was prepped and draped in the usual fashion for upper extremity surgery. The patient was placed in the upper extremity positioner. After sterilely prepping and draping, after having identified the side, site and procedure and a critical pause/time-out and after the satisfactory induction of the anesthetic, after having obtained informed consent, topographic anatomy of the shoulder was marked. The initial incision was extended two fingerbreadths proximally and to a roughly the mid aspect of the incision. An ellipse of skin, subcutaneous tissue and muscle was excised. The incision was carried down to the deltoid. This having been accomplished, the deltoid interval was identified and the underlying repair of rotator cuff had just been found to re-rupture. This having been accomplished, foreign bodies deep were removed which were essentially the non-absorbable sutures. This having been accomplished, further dissection was carried out with external rotation of the humerus. The polyethylene insert was removed and the two baseplate additions were removed as well. There was found to be a great deal of scar in the glenohumeral joint. The glenohumeral joint was identified and arthrotomy of the glenohumeral joint was accomplished through the excisional scar. Dermolysis of the scar was accomplished, hemostasis controlled with the Aquamantys. Great care was taken to avoid injury to the musculocutaneous nerve. The coracoid process the lighthouse of the shoulder was identified and great care was taken to stay lateral and to the lateral aspect of the glenosphere. This having been accomplished, the wound was thoroughly irrigated. The proximal humerus having been exposed, proximal humeral modular component aspect was removed. The two plates were removed. This having been accomplished, trialing was accomplished. First, one plate was removed and with the #0 poly insert, this could not be reduced. The second plate was removed with the #0 insert it was found to be stable. This having been accomplished, after the trialing was accomplished, the wound was thoroughly irrigated. The appropriate poly was dialed into the most stable position and the reverse arthroplasty was reduced. It was found to be stable in all planes. There will be a limitation of total elevation and most probably external rotation; this cannot be helped. The wound was thoroughly irrigated. Hemostasis was controlled with the Aquamantys, primary repair of the rotator cuff was accomplished using the FiberWire. Rotator cuff was repaired using FiberWire and #1 Vicryl. The wound was thoroughly irrigated. Closures in layers, 0 Vicryl, 2-0 Vicryl and mj for skin. The Aquamantys was employed. Compression dressing and shoulder immobilizer was applied. It should be noted the that during the course of the procedure under the surgeon's direction, the fluoroscope was positioned, video images were generated and therapeutic decisions were made therefrom. The shoulder was found to be in excellent position with acceptable placement. It should be noted that the decision had to be made preoperatively and intraoperatively whether to remove the entire Exactech glenoid. The Exactech glenoid was well fixed. There was no chance of removing the glenoid plate and glenosphere without damaging significantly the patient with perhaps irreparable consequence in terms of revision. The tolerance of 2 mm between the JESSICA, constrained polyethylene at 40 mm and 38 mm glenosphere. This tolerance was found to be acceptable which was proven by taking the shoulder through a complex range of motion. The shoulder was found to be stable and the rotator cuff was repaired as well to offer more stability. This had been noted to the patient and her son that possibility and this having been accomplished, the dressing was applied and the shoulder immobilizer was applied. Daniel Tom MD
[2018-07-09 19:18] VITALS: O2SAT 99
[2018-07-09 19:19] VITALS: BP 126/77; PULSE 72; RESP 18; TEMP 98.4
--- NOTE | 2018-07-11 15:31 | RAD ---
Date of service: 07/09/2018 PROCEDURE: Intraoperative Fluoroscopy. HISTORY: FLUORO FINDINGS: Fluoroscopic assistance was provided. Fluoroscopy time = 3.8 sec. Radiation dose = 0.34 mGy. Please refer to the operative report from JUAN JOSÉ Harris.
== END 2018-07-09 19:15 | disposition home or self-care (01) ==
LOC: H.OPSURG 06:33
PROVIDERS: ATTEND Orthopaedic Surgery
DX: T84.028A Dislocation of other internal joint prosthesis, initial encounter (principal); M47.9 Spondylosis, unspecified; M75.101 Unspecified rotator cuff tear or rupture of right shoulder, not specified as traumatic; I12.9 Hypertensive chronic kidney disease with stage 1 through stage 4 chronic kidney disease, or unspecified chronic kidney disease; N18.3 Chronic kidney disease, stage 3 (moderate); M81.0 Age-related osteoporosis without current pathological fracture; M24.411 Recurrent dislocation, right shoulder; E78.00 Pure hypercholesterolemia, unspecified; Z79.82 Long term (current) use of aspirin; Z87.891 Personal history of nicotine dependence; Z96.651 Presence of right artificial knee joint
CPT/HCPCS: 23473; 29819; 29827; 36415; 73030; 80048; 80076; 85025; 86850; 86900; 86920; 87015; 87070; 87075; 87101; 87116; 87206; 88304; 88305; 89051; C1776; J0171; J0360; J0690; J2250; J2370; J2704; J2710; J3010; J7030; J7120